=== PATIENT | male | born 1940 | race Caucasian/White ===

== ENCOUNTER 2016-07-01 12:21 | Emergency (ER) | payer OTHER ==
[~2016-07-01 12:21] MED LIST: ASPI81 PO; COUM5TAB PO; FISH1000 PO; GLYB1TAB51 PO; LATA.005%O OU; LEVO.025 PO; LISI-357 PO; PRED50TA PO; REST30CA PO; RIVA20 PO; ROSU20 PO; TAB-TAB PO; TAMS0.4C67 PO; TIMO0.5S6 OU
[2016-07-01 12:24] VITALS: BP 144/58; PULSE 58; RESP 24; TEMP 97.5
--- NOTE | 2016-07-01 12:51 | PD ---
HPI Chief Complaint: General Weakness Time Seen by Provider: 12:41 Travel History International Travel<30 days: No Contact w/Intl Traveler<30days: No Traveled to known affect area: No History of Present Illness HPI This patient complains of shortness of breath. He said shortness of breath for 2-3 months. He's had extensive workup to determine why he gets recurrent pleural effusions and he still does not know. He has history of myelodysplastic syndrome and has pancytopenia. 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 He still has no diagnosis. He is a smoker. Denies productive cough or fever or chest pain. He does not use home oxygen. Severity is moderate. No alleviating factors. He has had 4 thoracentesis so far PFSH Past Medical History Asthma: No Autoimmune Disease: No Blood Disorders: No Heart Rhythm Problems: No Cancer: Yes Cardiovascular Problems: Yes High Cholesterol: Yes Chemotherapy: Yes Chest Pain: No Congestive Heart Failure: No COPD: No Diabetes: Yes Patient Takes Glucophage: Yes Endocrine: No Glaucoma: Yes Genitourinary: Yes Headaches: Yes Hypertension: Yes Immune Disorder: No Implanted Vascular Access Dvce: Yes Musculoskeletal: No Neurologic: Yes Psychiatric: No Reproductive: No Respiratory: No Immunizations Current: Yes Myocardial Infarction: No Radiation Therapy: Yes (SEEDED) Sleep Apnea: No Past Surgical History AICD: No Arteriovenous Shunt: No Body Medical Devices: STENT CARDIAC Cardiac Surgery: Yes (LEFT CEA 11/2005; CARDIAC STENT 09/12) Genitourinary Surgery: Yes (PROSTATE CA 04/09) Insulin Pump: No Joint Replacement: No Oral Surgery: Yes (GUMS) Pacemaker: No Other Surgery: Yes Social History Alcohol Use: No Tobacco Use: Yes Substance Use: No Allergies-Medications (Allergen,Severity, Reaction): Coded Allergies: No Known Allergies (Verified , 07/01/16) Reported Meds & Prescriptions Reported Meds & Active Scripts Active Reported Amoxicillin-Clavulanate 875-125 mg Tab 875 Mg PO BID not for use in CrCl <30 mL/minute Levothyroxine (Levothyroxine Sodium) 25 Mcg Tab 25 Mcg PO EVERY OTHER DAY Timolol Opth Drops 0.5 % Soln 1 Drop EACH EYE BID Zolpidem (Zolpidem Tartrate) 5 Mg Tab 5 Mg PO HS PRN Flomax (Tamsulosin HCl) 0.4 Mg Cap 0.4 Mg PO HS Review of Systems General / Constitutional: No: Fever Eyes: No: Visual changes HENT: No: Headaches Cardiovascular: No: Chest Pain or Discomfort Respiratory: Positive: Shortness of Breath Gastrointestinal: No: Abdominal Pain Genitourinary: No: Dysuria Musculoskeletal: No: Pain Skin: No Rash Neurologic: No: Weakness Psychiatric: No: Depression Endocrine: No: Polydipsia Hematologic/Lymphatic: No: Easy Bruising Physical Exam Narrative GENERAL: Well-nourished, well-developed patient in no apparent distress. SKIN: Focused skin assessment reveals no rash and nodules. Skin is Warm and dry. HEAD: Atraumatic. Normocephalic. EYES: Pupils equal and round. No scleral icterus. No injection or drainage. ENT: No nasal bleeding or discharge. Mucous membranes pink and moist. NECK: Trachea midline. No JVD. CARDIOVASCULAR: Regular rate and rhythm. No murmur appreciated. RESPIRATORY: No accessory muscle use. Clear to auscultation. Breath sounds equal bilaterally. GASTROINTESTINAL: Abdomen soft, suggestive of ascites in the abdomen from minimal distention. Hepatic and splenic margins not palpable. MUSCULOSKELETAL: No obvious deformities. No clubbing. No cyanosis. No edema. NEUROLOGICAL: Awake and alert. No obvious cranial nerve deficits. Motor grossly within normal limits. Normal speech. PSYCHIATRIC: Appropriate mood and affect; insight and judgment normal. Data Data Last Documented VS Vital Signs Date Time Temp Pulse Resp B/P Pulse Ox O2 Delivery O2 Flow Rate FiO2 07/01/16 14:54 67 18 141/63 96 Nasal Cannula 3 07/01/16 12:24 97.5 Orders Chest, Single Ap (07/01/16 ) Complete Blood Count With Diff (07/01/16 12:47) Basic Metabolic Panel (Bmp) (07/01/16 12:47) Iv Access Insert/Monitor (07/01/16 12:47) Prothrombin Time / Inr (Pt) (07/01/16 12:48) Act Partial Throm Time (Ptt) (07/01/16 12:48) Labs Laboratory Tests Test 07/01/16 12:52 White Blood Count 5.0 TH/MM3 Red Blood Count 2.52 MIL/MM3 Hemoglobin 8.6 GM/DL Hematocrit 26.0 % Mean Corpuscular Volume 103.1 FL Mean Corpuscular Hemoglobin 33.9 PG Mean Corpuscular Hemoglobin 32.9 % Concent Red Cell Distribution Width 24.4 % Platelet Count 122 TH/MM3 Mean Platelet Volume 11.5 FL Neutrophils (%) (Auto) % Lymphocytes (%) (Auto) % Monocytes (%) (Auto) % Eosinophils (%) (Auto) % Basophils (%) (Auto) % Neutrophils # (Auto) TH/MM3 Lymphocytes # (Auto) TH/MM3 Monocytes # (Auto) TH/MM3 Eosinophils # (Auto) TH/MM3 Basophils # (Auto) TH/MM3 CBC Comment AUTO DIFF Differential Total Cells 100 Counted Neutrophils % (Manual) 47 % Band Neutrophils % 3 % Lymphocytes % 23 % Monocytes % 27 % Neutrophils # (Manual) 2.5 TH/MM3 Nucleated Red Blood Cells 39 /100 WBC Differential Comment FINAL DIFF MANUAL Toxic Granulation 1+ Dohle Bodies Platelet Estimate LOW Platelet Morphology Comment ENLARGED Acanthocytes OCC Prothrombin Time 13.2 SEC Prothromb Time International 1.2 RATIO Ratio Activated Partial 31.2 SEC Thromboplast Time Sodium Level 138 MEQ/L Potassium Level 4.5 MEQ/L Chloride Level 102 MEQ/L Carbon Dioxide Level 30.1 MEQ/L Anion Gap 6 MEQ/L Blood Urea Nitrogen 36 MG/DL Creatinine 1.34 MG/DL Estimat Glomerular Filtration 52 ML/MIN Rate Random Glucose 139 MG/DL Calcium Level 9.0 MG/DL MDM Medical Decision Making Medical Screen Exam Complete: Yes Emergency Medical Condition: Yes Medical Record Reviewed: Yes Differential Diagnosis Recurrent pleural effusion, lung cancer, CHF Narrative Course I have reviewed the patient's electronic medical record. IV placed CBC shows pancytopenia which is chronic for this patient Metabolic profile shows some renal insufficiency Coagulation studies are normal I reviewed his chest x-ray which does not show significant pleural effusions. There may be a trace of pleural fluid in the bases but nothing to consider removing. Has some atelectasis in the bases as well. Radiologist reading is been noted. He does not have any clinical findings of pneumonia. Room air saturations are 98% He does not look short of breath Stable for outpatient follow-up. Diagnosis Primary Impression: Shortness of breath Additional Impression: Pancytopenia Additional Instructions: The patient was advised to follow up with their physician and return if they worsen. Med/Other Pt SpecificInfo: Other Disposition: 01 DISCHARGE HOME Condition: Stable Gavin Wang MD July 01, 2016 12:51
[2016-07-01] MEDS ORDERED: ZOLP5TAB3 PO (13:03)
[2016-07-01] MEDS ORDERED: TIMO0.5S30 EACH EYE (13:03)
[2016-07-01] MEDS ORDERED: TAMS5CAP PO (13:03)
[2016-07-01] MEDS ORDERED: LEVO25TA4 PO (13:05)
[2016-07-01] MEDS ORDERED: AMOX875T2 PO (13:05)
[2016-07-01 13:14] LABS: MEAN CELL VOLUME 103.1 FL (80.0-100.0); MEAN CORPUSCULAR HEMOGLOBIN 33.9 PG (27.0-34.0); MEAN CORPUSCULAR HGB CONC 32.9 % (32.0-36.0); PLATELET COUNT 122 TH/MM3 (150-450); RED BLOOD COUNT 2.52 MIL/MM3 (4.50-5.90); RED CELL DISTRIBUTION WIDTH 24.4 % (11.6-17.2)
[2016-07-01 13:17] LABS: APTT (PATIENT) 31.2 SEC (24.3-30.1); INTERNATIONAL NORMALIZED RATIO 1.2 RATIO; PROTHROMBIN TIME - PATIENT 13.2 SEC (9.8-11.6)
--- NOTE | 2016-07-01 13:20 | RADRPT ---
EXAM DATE/TIME: 07/01/2016 12:54 [facility] COMPARISON: No previous studies available for comparison. INDICATIONS : Difficulty breathing for 1 week. MEDICAL HISTORY : Hypertension. Carcinoma, prostatic. Diabetes. SURGICAL HISTORY : Coronary artery stent. ENCOUNTER: Initial ACUITY: 1 week PAIN SCORE: 2/10 LOCATION: Bilateral chest FINDINGS: Portable AP view of the chest demonstrates a normal-sized cardiac silhouette in this patient post med darron sternotomy and CABG. Lungs are underinflated and there are mild bibasilar opacities. No pneumotho rax is visualized. Bones and soft tissues demonstrate no acute finding. CONCLUSION: Bibasilar opacities representing either atelectasis or consolidation. Possible small pleural effusion s are also present. Horacio Silver MD on July 01, 2016 at 13:17 Board Certified Radiologist. This report was verified electronically.
[2016-07-01 13:22] LABS: HEMO FLAGS AUTO DIFF
[2016-07-01 13:30] LABS: BICARBONATE 30.1 MEQ/L (21.0-32.0); POTASSIUM 4.5 MEQ/L (3.5-5.1)
[2016-07-01 13:59] LABS: BANDS 3 % (0-6); CORRECTED NUCLEATED RBC 39 /100 WBC (0-0); NEUTROPHIL # MANUAL DIFF 2.5 TH/MM3 (1.8-7.7); POLYS (SEG NEUTROPHILS) 47 % (16-70); WBC DIFF SAMPLE 100
[2016-07-01 14:06] LABS: PLATELET ESTIMATE SMEAR LOW (NORMAL); TOXIC GRANULATION 1+ (NORMAL)
[2016-07-01 14:07] LABS: PLATELET MORPHOLOGY ENLARGED (NORMAL)
[2016-07-01 14:11] LABS: ACANTHOCYTES OCC (NORMAL); SCAN/DIFF FINAL DIFF MANUAL
[2016-07-01 14:54] VITALS: BP 141/63; PULSE 67; RESP 18; O2SAT 96
== END 2016-07-01 16:53 | disposition home or self-care (01) ==
LOC: NEPC 12:21
DX: R06.02 Shortness of breath (principal); D61.818 Other pancytopenia
CPT/HCPCS: 71010; 80048; 85007; 85027; 85610; 85730; 99284

== ENCOUNTER 2016-07-06 11:51 | Inpatient (IN) | payer OTHER, MEDICARE ==
[~2016-07-06] VITALS: Ht 185.4 cm; Wt 85.9 kg
[2016-07-06] VITALS (12 sets, daily range): BP systolic 84–131; BP diastolic 50–85; PULSE 52–100; RESP 16–22; TEMP 97.2–99.8; O2SAT 83–99
[~2016-07-06 11:51] MED LIST changes: +AMOX875T2 PO; -ASPI81 PO; -COUM5TAB PO; -FISH1000 PO; -GLYB1TAB51 PO; -LATA.005%O OU; -LEVO.025 PO; +LEVO25TA4 PO; -LISI-357 PO; -PRED50TA PO; -REST30CA PO; -RIVA20 PO; -ROSU20 PO; -TAB-TAB PO; -TAMS0.4C67 PO; +TAMS5CAP PO; +TIMO0.5S30 EACH EYE; -TIMO0.5S6 OU; +ZOLP5TAB3 PO
--- NOTE | 2016-07-06 12:01 | PD ---
Physical Exam Date Seen by Provider: July 06, 2016 Time Seen by Provider: 11:57 Narrative 76 yo male that presents to the ED for evaluation of low O2 at home. Per patient he checked his O2 today and it was 82. He does not use oxygen at home. History of fluid in the lungs about 4 days ago and was drained. No fevers, chills or sweats. He does get chemo. Feels SOB. He was seen here on tuesday and put on oxygen but not discharged with it. Pain is 6/10 on the head from "being congested". His BP was found to be abnormal with one arm having higher BP than the other by EMS tech. Vitals sign stable. Patient awaiting bed placement. Data Data Last Documented VS Vital Signs Date Time Temp Pulse Resp B/P Pulse Ox O2 Delivery O2 Flow Rate FiO2 07/06/16 11:56 113/54 07/06/16 11:55 97.7 100 18 83 MDM Medical Record Reviewed: Yes Supervised Visit with BLAZE: No Wojciech Aguayo July 06, 2016 12:01
--- NOTE | 2016-07-06 12:24 | PD ---
HPI Chief Complaint: Respiratory Symptoms Time Seen by Provider: 12:24 Travel History International Travel<30 days: No Contact w/Intl Traveler<30days: No Traveled to known affect area: No History of Present Illness HPI Patient comes emergency Department complaining of low oxygen saturation at home this morning. He states he first woke up this feeling weak and a little short of breath and was O2 was 74%. Patient is rechecked and found to be 84%. Was sent to the emergency department by his oncologist Dr. Tilley. Patient history of pancytopenia, coronary artery disease, type 2 diabetes, failure to thrive, and bilateral pleural effusions. Patient states he just had a stress test done 6 weeks ago by his hall manager and was told that this was not his heart per patient. Patient scheduled to have a lung biopsy done next week had been delayed secondary to recent dental infection. Patient denies any chest pain, fevers, nausea, vomiting, abdominal pain, back pain, numbness or tingling anywhere, or loss or change in bowel or bladder. Patient states he's had this issue ongoing for 2 or 3 months and has not been able to find a cause. He states he feels better when he gets oxygen while in the hospital but does not have any at home. Patient's primary care is Dr. Sutherland and glove wrapper is Dr. Ramirez. Patient reports his last erythropoietin shot was a week ago. PFSH Past Medical History Asthma: No Autoimmune Disease: No Blood Disorders: No Heart Rhythm Problems: No Cancer: Yes Cardiovascular Problems: Yes (htn; bypass) High Cholesterol: Yes Chemotherapy: Yes (shots for dysmylo dysplasia) Chest Pain: No Congestive Heart Failure: No COPD: No Diabetes: Yes Endocrine: No Glaucoma: Yes Genitourinary: Yes Headaches: Yes Hypertension: Yes Immune Disorder: No Implanted Vascular Access Dvce: Yes Musculoskeletal: No Neurologic: Yes Psychiatric: No Reproductive: No Respiratory: Yes (copd) Immunizations Current: Yes Myocardial Infarction: No Radiation Therapy: Yes (SEEDED) Sleep Apnea: No Past Surgical History AICD: No Arteriovenous Shunt: No Body Medical Devices: STENT CARDIAC Cardiac Surgery: Yes (LEFT CEA 11/2005; CARDIAC STENT 09/12) Genitourinary Surgery: Yes (PROSTATE CA 04/09) Insulin Pump: No Joint Replacement: No Oral Surgery: Yes (GUMS) Pacemaker: No Other Surgery: Yes Social History Alcohol Use: No Tobacco Use: Yes Substance Use: No Allergies-Medications (Allergen,Severity, Reaction): Coded Allergies: No Known Allergies (Verified , 07/06/16) Reported Meds & Prescriptions Reported Meds & Active Scripts Active Reported Amoxicillin-Clavulanate 875-125 mg Tab 875 Mg PO BID not for use in CrCl <30 mL/minute Levothyroxine (Levothyroxine Sodium) 25 Mcg Tab 25 Mcg PO EVERY OTHER DAY Timolol Opth Drops 0.5 % Soln 1 Drop EACH EYE BID Zolpidem (Zolpidem Tartrate) 5 Mg Tab 5 Mg PO HS PRN Flomax (Tamsulosin HCl) 0.4 Mg Cap 0.4 Mg PO HS Review of Systems Except as stated in HPI: all other systems reviewed are Neg Physical Exam Narrative GENERAL: Well-developed, well nourished, in no acute distress, and non-ill appearing. SKIN: Focused skin assessment warm and dry. HEAD: Atraumatic. Normocephalic. EYES: Pupils equal and round. EOMI. No scleral icterus. No injection or drainage. ENT: No nasal bleeding or discharge. Mucous membranes pink and moist. NECK: Trachea midline. Supple. No nuclear rigidity. CARDIOVASCULAR: Irregular rate and rhythm. No murmur appreciated. RESPIRATORY: No accessory muscle use. No respiratory distress. Decreased breath sounds throughout. Patient speaking in full sentences without difficulty. GASTROINTESTINAL: Abdomen soft, non-tender, nondistended. Hepatic and splenic margins not palpable. No pulsatile mass. MUSCULOSKELETAL: No obvious deformities. No clubbing. No cyanosis. No edema. Full range of motion. NEUROLOGICAL: Awake and alert. No obvious cranial nerve deficits. Motor grossly within normal limits. Normal speech. PSYCHIATRIC: Appropriate mood and affect; insight and judgment normal. Data Data Last Documented VS Vital Signs Date Time Temp Pulse Resp B/P Pulse Ox O2 Delivery O2 Flow Rate FiO2 07/06/16 13:47 52 20 84/50 94 Nasal Cannula 3 07/06/16 11:55 97.7 Orders Complete Blood Count With Diff (07/06/16 12:19) Basic Metabolic Panel (Bmp) (07/06/16 12:19) Act Partial Throm Time (Ptt) (07/06/16 12:19) Prothrombin Time / Inr (Pt) (07/06/16 12:19) Iv Access Insert/Monitor (07/06/16 12:19) Electrocardiogram (07/06/16 12:19) Ecg Monitoring (07/06/16 12:19) Oximetry (07/06/16 12:19) Oxygen Administration (07/06/16 12:19) Sodium Chloride 0.9% Flush (Ns Flush) (07/06/16 12:30) Ckmb (Isoenzyme) Profile (07/06/16 13:21) Troponin I (07/06/16 13:21) Chest, Single Ap (07/06/16 ) Type And Screen (07/06/16 14:09) Red Blood Cells (Rbc) (07/06/16 14:09) Blood Product Administration .UPON TRANSFUSION (07/06/16 14:09) Sodium Chlor 0.9% 250 Ml Inj (Ns 250 Ml (07/06/16 14:15) Consult Medical Oncology (07/06/16 ) Consult Pulmonology (07/06/16 ) Admit Order (Ed Use Only) (07/06/16 14:43) Labs Laboratory Tests Test 07/06/16 12:29 White Blood Count 4.0 TH/MM3 Red Blood Count 2.30 MIL/MM3 Hemoglobin 7.7 GM/DL Hematocrit 23.7 % Mean Corpuscular Volume 103.1 FL Mean Corpuscular Hemoglobin 33.3 PG Mean Corpuscular Hemoglobin 32.4 % Concent Red Cell Distribution Width 24.2 % Platelet Count 125 TH/MM3 Mean Platelet Volume 11.4 FL Neutrophils (%) (Auto) % Lymphocytes (%) (Auto) % Monocytes (%) (Auto) % Eosinophils (%) (Auto) % Basophils (%) (Auto) % Neutrophils # (Auto) TH/MM3 Lymphocytes # (Auto) TH/MM3 Monocytes # (Auto) TH/MM3 Eosinophils # (Auto) TH/MM3 Basophils # (Auto) TH/MM3 CBC Comment AUTO DIFF Differential Total Cells 100 Counted Neutrophils % (Manual) 51 % Band Neutrophils % 3 % Lymphocytes % 23 % Monocytes % 21 % Eosinophils % 1 % Neutrophils # (Manual) 2.2 TH/MM3 Promyelocytes 1 % Nucleated Red Blood Cells 78 /100 WBC Differential Comment FINAL DIFF MANUAL Toxic Granulation 1+ Toxic Vacuolation PRESENT Platelet Estimate LOW Platelet Morphology Comment ENLARGED Ovalocytes 1+ Prothrombin Time 12.8 SEC Prothromb Time International 1.2 RATIO Ratio Activated Partial 28.2 SEC Thromboplast Time Sodium Level 141 MEQ/L Potassium Level 5.0 MEQ/L Chloride Level 103 MEQ/L Carbon Dioxide Level 32.0 MEQ/L Anion Gap 6 MEQ/L Blood Urea Nitrogen 28 MG/DL Creatinine 1.16 MG/DL Estimat Glomerular Filtration 61 ML/MIN Rate Random Glucose 199 MG/DL Calcium Level 9.2 MG/DL Total Creatine Kinase 20 U/L Troponin I 0.04 NG/ML MDM Medical Decision Making Medical Screen Exam Complete: Yes Emergency Medical Condition: Yes Interpretation(s) [address] Bustamante shows atrial fibrillation with a slow ventricular response rate of 57. With some questionable new T-wave inversions compared to previous EKG. No STEMI. Chest x-ray reviewed by myself and Dr. Bustamante shows: No significant change from previous chest x-ray. Left pleural effusions may have increase slightly. Radiologist to over read. Differential Diagnosis Hypoxemia, pneumonia, pleural effusion, anemia, electrolyte abnormality, mass, pneumothorax, other Narrative Course Patient was examined. Initial laboratory and radiological studies were obtained and reviewed. Patient was placed on O2, IV was established and patient placed on a cardiac monitor technician. Discussed all findings and plan of care with patient and his . Patient agreeable for admission. All questions were answered. Patient remained stable throughout ED course. Discussed patient with Dr. Bustamante, who is in agreement with plan of care and disposition. Physician Communication Physician Communication [id number] Tilley patient's oncologist recommends transfer using 2 units packed red blood cells, have patient admitted to medicine, consult himself and patient's glove wrapper. [id number] Ramirez, patient's glove wrapper, who is agreeable to consult patient. [id number] Carter who is agreeable to admit the patient. Diagnosis Primary Impression: Hypoxemia Additional Impressions: Shortness of breath Pancytopenia Anemia Qualified Code: D64.9 - Anemia, unspecified type Pleural effusion on left Admitting Information Admitting Physician Requests: Admit Condition: Stable Fabio Ca July 06, 2016 12:24
[2016-07-06] MEDS ORDERED: SODIUM CHLORIDE 0.9% FLUSH 10 ML FLUSH IVF PRN (12:30)
[2016-07-06 12:52] LABS: HEMATOCRIT 23.7 % (39.0-51.0); MEAN CELL VOLUME 103.1 FL (80.0-100.0); MEAN CORPUSCULAR HEMOGLOBIN 33.3 PG (27.0-34.0); MEAN CORPUSCULAR HGB CONC 32.4 % (32.0-36.0); PLATELET COUNT 125 TH/MM3 (150-450); RED CELL DISTRIBUTION WIDTH 24.2 % (11.6-17.2)
[2016-07-06 13:00] LABS: HEMO FLAGS AUTO DIFF
[2016-07-06 13:03] LABS: APTT (PATIENT) 28.2 SEC (24.3-30.1); INTERNATIONAL NORMALIZED RATIO 1.2 RATIO; PROTHROMBIN TIME - PATIENT 12.8 SEC (9.8-11.6)
[2016-07-06 13:35] LABS: BANDS 3 % (0-6); CORRECTED NUCLEATED RBC 78 /100 WBC (0-0); EOSINOPHILS 1 % (0-4); NEUTROPHIL # MANUAL DIFF 2.2 TH/MM3 (1.8-7.7); POLYS (SEG NEUTROPHILS) 51 % (16-70); PROMYELOCYTES 1 % (0-0); WBC DIFF SAMPLE 100
[2016-07-06 13:36] LABS: PLATELET ESTIMATE SMEAR LOW (NORMAL)
[2016-07-06 13:37] LABS: PLATELET MORPHOLOGY ENLARGED (NORMAL)
[2016-07-06 13:39] LABS: OVALOCYTES 1+ (NORMAL); TOXIC GRANULATION 1+ (NORMAL); TOXIC VACUOLATION PRESENT (NONE SEEN)
[2016-07-06 13:40] LABS: SCAN/DIFF FINAL DIFF MANUAL
[2016-07-06] MEDS ORDERED: SODIUM CHLOR 0.9% 250 ML INJ 250 ML IV ONE (14:15)
[2016-07-06] MEDS ORDERED: BISACODYL 10 MG SUPP RECTAL PRN (14:45)
[2016-07-06] MEDS ORDERED: ENOXAPARIN SODIUM 40 MG/0.4 ML SYRINGE SQ SCH (14:45)
[2016-07-06] MEDS ORDERED: SENNOSIDES 8.6 MG TAB PO PRN (14:45)
[2016-07-06] MEDS ORDERED: SODIUM CHLORIDE 0.9% FLUSH 10 ML FLUSH IV FLUSH PRN (14:45)
[2016-07-06] MEDS ORDERED: ONDANSETRON HCL 4 MG/2 ML VIAL IVP PRN (14:45)
[2016-07-06] MEDS ORDERED: LACTULOSE SYRUP 20 GM/30 ML CUP PO PRN (14:45)
[2016-07-06] MEDS ORDERED: NALOXONE HCL 0.4 MG/ML AMP IV PRN (14:45)
[2016-07-06] MEDS ORDERED: MAGNESIUM HYDROXIDE SUSP 30 ML CUP PO PRN (14:45)
--- NOTE | 2016-07-06 15:16 | RADRPT ---
EXAM DATE/TIME: 07/06/2016 14:15 [facility] COMPARISON: CHEST SINGLE AP, July 01, 2016, 12:54. INDICATIONS : Short of breath, swelling left side of the neck. MEDICAL HISTORY : anemia SURGICAL HISTORY : CABG. ENCOUNTER: Initial ACUITY: 1 day PAIN SCORE: 0/10 LOCATION: Bilateral chest FINDINGS: There continue to be bibasilar infiltrates which are about the same compared to the prior exam. There is a small left-sided pleural effusion. The heart size is stable. No evidence of pneumothorax. The b parviz structures are stable.CONCLUSION: 1. Stable bibasilar infiltrates 2. Small left-sided pleural effusion Thiago Link MD on July 06, 2016 at 15:14 Board Certified Radiologist. This report was verified electronically.
--- NOTE | 2016-07-06 16:09 | HHI.HP ---
[facility] Primary Care Physician Morales Sutherland MD Admission Diagnosis hypoxemia, anemia, myelodysplasia, left pleural effusion Diagnoses: Travel History International Travel<30 Days: No Contact w/Intl Traveler <30 Da: No Traveled to Known Affected Are: No History of Present Illness Mr. Yang is a 76-year-old male. He comes in to the hospital today with fatigue, dyspnea, and hypoxia. Saturations at home has been as low as 74%. His peak finding at home and also in the ER, on room air, was 84%. With oxygen he is up into the 90s again, regarding his saturation. She has a history of myelodysplastic syndrome with elements of pancytopenia. This is likely contributory. He has had a myelodysplastic syndrome for about 3 years. In the last 3 months he reports that he has been having problems with recurrent hypoxia. She also has a problem with a recurrent pleural effusion. His history of smoking, pleural effusion, his degree of anemia, and possible cellular malformation could be contributory to his hypoxia. Vascular constriction may also accentuate the degree of peripheral oxygen saturation deficit. Aside from fatigue and dyspnea the patient does not report any confusion, loss of consciousness, presyncope, headache, or visual deficit. Other medical conditions include coronary artery disease and diabetes mellitus type 2. 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 Tilley has ordered 2 units of packed red blood cells, which are pending. 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 Review of Systems Constitutional: DENIES: Fatigue, Fever, Chills Eyes: DENIES: Blurred vision, Diplopia Ears, nose, mouth, throat: DENIES: Hearing loss, Vertigo Respiratory: COMPLAINS OF: Shortness of breath, DENIES: Cough, Wheezing Cardiovascular: DENIES: Chest pain, Palpitations, Syncope Gastrointestinal: DENIES: Abdominal pain, Black stools, Bloody stools Musculoskeletal: DENIES: Joint pain, Muscle aches, Stiffness Integumentary: DENIES: Abnormal pigmentation Hematologic/lymphatic: DENIES: Bruising Immunologic/allergic: DENIES: Eczema Neurologic: DENIES: Abnormal gait, Headache Psychiatric: DENIES: Anxiety, Confusion Past Family Social History Past Medical History TIA Diabetes mellitus type 2 Prostate cancer Skin cancer Hypertension Glaucoma Benign prostatic hypertrophy Peripheral vascular disease Coronary artery disease Myelodysplastic syndrome Past Surgical History Left carotid endarterectomy 2 Right carotid endarterectomy Tonsillectomy CABG Seed implants for prostate cancer Left anterior descending coronary stenting Reported Medications Reported Meds & Active Scripts Active Reported Amoxicillin-Clavulanate 875-125 mg Tab 875 Mg PO BID not for use in CrCl <30 mL/minute Levothyroxine (Levothyroxine Sodium) 25 Mcg Tab 25 Mcg PO EVERY OTHER DAY Timolol Opth Drops 0.5 % Soln 1 Drop EACH EYE BID Zolpidem (Zolpidem Tartrate) 5 Mg Tab 5 Mg PO HS PRN Flomax (Tamsulosin HCl) 0.4 Mg Cap 0.4 Mg PO HS Allergies: Coded Allergies: No Known Allergies (Verified , 07/06/16) Family History Peripheral vascular disease in mother Social History Patient smokes 2-3 cigarettes per day Occasional alcohol use No drug abuse Patient lives with his Physical Exam Vital Signs Vital Signs Date Time Temp Pulse Resp B/P Pulse Ox O2 Delivery O2 Flow Rate FiO2 07/06/16 13:47 52 20 84/50 94 Nasal Cannula 3 07/06/16 13:31 52 22 92/71 96 Nasal Cannula 3 07/06/16 12:24 94 Nasal Cannula 2 07/06/16 12:24 92 Nasal Cannula 2 07/06/16 12:21 64 22 Nasal Cannula 2 07/06/16 11:56 113/54 07/06/16 11:55 97.7 100 18 88/60 83 Physical Exam GENERAL: NAD, A&Ox3 SKIN: Warm and dry. HEAD: Normocephalic. EYES: No scleral icterus. No injection or drainage. NECK: Supple, trachea midline. No JVD or lymphadenopathy. CARDIOVASCULAR: Regular rate and rhythm without murmurs, gallops, or rubs. RESPIRATORY: Breath sounds equal bilaterally. No accessory muscle use. GASTROINTESTINAL: Abdomen soft, non-tender, nondistended. MUSCULOSKELETAL: No cyanosis, or edema. Laboratory Laboratory Tests Test 07/06/16 07/06/16 12:29 14:23 White Blood Count 4.0 Red Blood Count 2.30 Hemoglobin 7.7 Hematocrit 23.7 Mean Corpuscular Volume 103.1 Mean Corpuscular Hemoglobin 33.3 Mean Corpuscular Hemoglobin 32.4 Concent Red Cell Distribution Width 24.2 Platelet Count 125 Mean Platelet Volume 11.4 Neutrophils (%) (Auto) Lymphocytes (%) (Auto) Monocytes (%) (Auto) Eosinophils (%) (Auto) Basophils (%) (Auto) Neutrophils # (Auto) Lymphocytes # (Auto) Monocytes # (Auto) Eosinophils # (Auto) Basophils # (Auto) CBC Comment AUTO DIFF Differential Total Cells 100 Counted Neutrophils % (Manual) 51 Band Neutrophils % 3 Lymphocytes % 23 Monocytes % 21 Eosinophils % 1 Neutrophils # (Manual) 2.2 Promyelocytes 1 Nucleated Red Blood Cells 78 Differential Comment FINAL DIFF MANUAL Toxic Granulation 1+ Toxic Vacuolation PRESENT Platelet Estimate LOW Platelet Morphology Comment ENLARGED Ovalocytes 1+ Prothrombin Time 12.8 Prothromb Time International 1.2 Ratio Activated Partial 28.2 Thromboplast Time Sodium Level 141 Potassium Level 5.0 Chloride Level 103 Carbon Dioxide Level 32.0 Anion Gap 6 Blood Urea Nitrogen 28 Creatinine 1.16 Estimat Glomerular Filtration 61 Rate Random Glucose 199 Calcium Level 9.2 Total Creatine Kinase 20 Troponin I 0.04 Blood Type O POSITIVE Antibody Screen NEGATIVE Crossmatch Leukocyte-Reduced Red Blood Cells Blood Bank Comment Result Diagram: 07/06/16 1229 07/06/16 1229 Assessment and Plan Problem List: (1) Hypoxemia ICD Code: R09.02 Status: Acute (2) Pleural effusion on left ICD Code: J90 Status: Acute (3) Anemia ICD Code: D64.9 Status: Acute (4) Pancytopenia ICD Code: D61.818 Status: Acute (5) Shortness of breath ICD Code: R06.02 Status: Acute Assessment and Plan Assessment and plan 76-year-old male admitted with myelodysplastic syndrome, anemia, and acute hypoxia. Acute hypoxia May be multifactorial Possibility for underlying lung disease given history of smoking Myelodysplastic syndrome may be contributory Pleural effusion is not large at this time but could also be contributory Follow him pulse ox Supplemental oxygen Pulmonology consult Myelodysplastic syndrome Anemia Pancytopenia Consult hematology/oncology Transfuse 2 units of packed red blood cells on 07/06/16 Diabetes mellitus or 2 Insulin sliding scale Follow blood sugars Diabetic diet Benign prostatic hypertrophy History of prostate cancer Continue Flomax Glaucoma Continue baseline eye drops TIA Hx Follow clinically Hypertension Follow blood pressure Treatments as needed at this point Peripheral vascular disease Coronary artery disease Follow symptoms clinically Follow on telemetry No chest pain No claudication Nicotine use Degree of nicotine use his light the patient is counseled to quit No nicotine supplementation needed Physician Certification 2 Midnight Certification Type: Admission for Inpatient Services Order for Inpatient Services The services are ordered in accordance with Medicare regulations or non- Medicare payer requirements, as applicable. In the case of services not specified as inpatient-only, they are appropriately provided as inpatient services in accordance with the 2-midnight benchmark. Estimated LOS (days): 2 days is the estimated time the patient will need to remain in the hospital, assuming treatment plan goals are met and no additional complications. Post-Hospital Plan: Home Problem Qualifiers (1) Anemia: Qualified Code: D64.9 - Anemia, unspecified type Nacho Carter MD July 06, 2016 16:09
[2016-07-06] MEDS ORDERED: LATA0.002 EACH EYE (16:12)
[2016-07-06] MEDS ORDERED: PIPERACIL-TAZO 3.375 GM PREMIX 50 ML IV SCH (20:00)
--- NOTE | 2016-07-06 20:44 | MB ---
cc: TATIANA OLIVEROS DATE OF CONSULTATION 07/06/16 REASON FOR CONSULTATION Recurrent pleural effusion. HISTORY OF PRESENT ILLNESS Mr. Yang is a 76-year-old male with history of pancytopenia myelodysplastic syndrome. He is requiring recurrent blood transfusion. The patient has pleural effusion. He has multiple thoracenteses done; etiology of the effusion is not clear. He came to the hospital with worsening of his shortness of breath and his noticed that his oxygen saturation at the house was 82%. Because of worsening of the symptoms, he came to the hospital. He had a workup and his chest x-ray shows small left pleural effusion. His CBC showed WBC count 4.0, hemoglobin 7.7, hematocrit 27.3, MCV 103, platelet count 125. Sodium 141, potassium 5.0. Chloride was 102, CO2 32, BUN 28, creatinine 1.16. PAST MEDICAL HISTORY 1. History of progressive pancytopenia 2. Recurrent pleural effusion 3. Coronary artery disease status post coronary artery bypass graft 4. Carotid endarterectomy 5. Hypothyroidism 6. Kidney stones 7. Peripheral arterial disease, 8. Prostate cancer MEDICATIONS Currently 1. Levothyroxine 25 mcg a day 2. Augmentin 875 mg twice a day. ALLERGIES NO KNOWN DRUG ALLERGIES. SOCIAL HISTORY He is , has history of smoking in the past. FAMILY HISTORY Noncontributory REVIEW OF SYSTEMS He has shortness of breath, no headache or dizziness. No nausea or vomiting, no DVT or pulmonary embolus. PHYSICAL EXAMINATION GENERAL: Elderly male mildly short of breath. VITAL SIGNS: Blood pressure 131/85, heart rate 79, respirations 16, temperature 97.2 HEENT: Pupils are equal and react to light. He has swelling on the left submandibular area. It is large, nontender. He did have a tooth extraction on the right side. CHEST: Equal bilaterally, slight diseased breath sounds at the left lung base. CARDIOVASCULAR: S1, S2 normal. ABDOMEN: Benign. EXTREMITIES: No edema. IMPRESSION 1. Recurrent pleural effusion, etiology not known 2. Dyspnea and hypoxia 3. Left submandibular area swelling, possible infection. He had a tooth extraction on the right side. 5. Anemia 6. History of pulmonary embolus 7. History of carotid endarterectomy. PLAN Continue with antibiotic. Supplement his oxygen. Will evaluate for home oxygen therapy. The patient was supposed to see Dr. Sana Lord as an outpatient. I will consult Dr. Lord to evaluate for possible VATS to determine the etiology of the pleural effusion and possible sclerosis. Further treatment will depend on the course in the hospital. Thank you for this consultation. MD LATASHA Flores/ /7:59 PM /8:31 PM MTDChristine
[2016-07-06] MEDS: SODIUM CHLORIDE 0.9% FLUSH 10 ML FLUSH IV FLUSH SCH (21:00)
--- NOTE | 2016-07-06 22:20 | MB ---
cc: NU DANIELS DATE OF CONSULTATION 07/06/16 REASON FOR CONSULTATION 1. Myelodysplastic syndrome with anemia 2. Shortness of breath 3. Swelling of left submandibular gland. PATIENT PROFILE The patient is a 76-year-old male. He is . He has four children. He lives with his , his 's father who is in his 90s, and a son who was injured in an automobile accident and has problems with his back and neck. Only during the past year has he decreased his tobacco use. He has smoked approximately a pack of cigarettes a day for 50 years. He was born in [place], [place]. 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 There is no history of excessive alcohol intake. HISTORY OF PRESENT ILLNESS The patient is a 76-year-old male who has poor health. He has had bilateral carotid endarterectomies, coronary artery bypass surgery grafting, a coronary stent. He developed a significant anemia with recurrent unexplained pleural effusions. He has undergone multiple thoracenteses which have been nondiagnostic. In October 2015, the patient had a hemoglobin of 12.9, white count 5000 and platelets of 157,000. He developed progressive pancytopenia. On 04/22/2016 his hemoglobin was 8.9, white count 3300, platelets 142,000. 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 The red cell precursors were decreased and cytogenetic studies showed a normal 46 XY karyotype. The patient was referred to the [facility] and saw Dr. Edouard for a second opinion. The decision was made to treat with Vidaza. He received three of five planned days of Vidaza last week. He had problems with hypoxia and weakness and did not receive the two additional days and went to the emergency room for shortness of breath and then was discharged home. He contacted our office today because of shortness of breath and had episodic hypoxia with O2 sats in the low 80s. he was referred to the emergency room at [place] and has been admitted to the hospital where I am now seeing him. He has had no temperature or sputum production. A chest x-ray on 07/06/16 shows a small left-sided pleural effusion and stable bibasilar infiltrates. Hemoglobin is 7.7, white count 4000, platelets 125,000. He has 51% neutrophils, 3% bands, 23% lymphocytes, 21% monocytes. He has 78 nucleated red blood cells. Lytes, BUN and creatinine are unremarkable. A chest x-ray shows stable bibasilar infiltrates and a small left-sided pleural effusion. During the previous week, the patient went to the dentist for a problem with a tooth on the right side. His dentist wanted to extract the tooth but did not feel he was stable enough to do this and had planned on having a surgeon do this at a later date. He did give him Augmentin which he is currently taking. At the time the patient saw the dentist he had mild swelling under the right submandibular area which improved but in the past 48 hours has developed rapid swelling underneath the left submandibular area which is tender. PAST SURGICAL HISTORY 1. Multiple thoracenteses bilaterally 2. Tonsillectomy. 3. Endovascular aneurysm repair in 2016 for an infrarenal abdominal aortic aneurysm by Dr. Cintron. 4. Coronary artery bypass surgery 2009 5. Left carotid endarterectomy times 2 6. Right carotid endarterectomy 7. Radioactive seed implantation in the prostate in 2002 for prostate cancer. PAST MEDICAL HISTORY 1. Diagnosis of myelodysplasia as described above 2. Type 2 diabetes 3. Gout 4. Hypothyroidism 5. Renal stones 6. Peripheral vascular disease 7. Prostate cancer dating back to 2002. ALLERGIES No known allergies. FAMILY HISTORY Mr. Yang's mother at 77. His father at age 83 of prostate cancer. The patient has two brothers who are . MEDICATIONS At home. 1. Augmentin started one week ago by his dentist 2. Eye drops 3. Levothyroxine 25 mcg every other day 14 4. Timolol eye drops 5. Ambiens REVIEW OF SYSTEMS No change in vision or hearing. No chest pain. He has shortness of breath with minimal exertion. No abdominal or pelvic pain. No melena or hematochezia, no dysuria or frequency. No bone pain other than mild arthritis. No focal weakness. PHYSICAL EXAMINATION GENERAL: A frail gentleman. He has a nasal cannula. His O2 sats have ranged from 99-85% in the past several hours. HEENT: Head is normocephalic. Sclerae and conjunctivae are normal. Oropharynx unremarkable. There is a 4 or 5 cm left submandibular mass, tender. There is a 2 cm right submandibular mass. There is no other adenopathy. HEART: Regular rhythm. LUNGS: Slightly decreased sounds left base. ABDOMEN: Mildly distended. No hepatosplenomegaly. EXTREMITIES: Trace edema. MUSCULOSKELETAL: Muscle wasting. NEUROLOGIC: No focal weakness although generalized weakness. PSYCHIATRIC: Cognition, affect are normal ASSESSMENT AND PLAN 1. The patient has a myelodysplasia and has just started treatment with Vidaza. His current hemoglobin is 7.7, white count 4000, platelets 125,000. He is frail and does not tolerate this hemoglobin. He will receive two units of packed cells. Will resume Vidaza as an outpatient. Repeat cbc plat in am 2. Recurrent pleural effusions and shortness of breath with a longstanding history of smoking. Dr. Ramirez has been consulted. I have spoken with Dr. 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 The patient will also be seen by thoracic surgery as there is a possibility that he may the require pleuroscopy due to the recurrent pleural effusions, although at the present time the pleural effusion is quite small. 3. The patient has extensive swelling of the left submandibular area. This occurred while on Augmentin. ENT consult. 4. History of severe vascular disease. He needs to stop smoking completely. I am not sure why he is not taking an aspirin and we will explore this with him given his history of bypass surgery and significant peripheral vascular disease. MD YURY Hutson/ /9:00 PM /9:50 PM [facility] HOSPITALChristine
[2016-07-06] MEDS: TIMOLOL MALEATE 0.5% OPHT SOLN 5 ML BTL EACH EYE SCH (23:05)
[2016-07-06] MEDS: LATANOPROST 0.005% OPHT SOLN 2.5 ML BTL EACH EYE SCH (23:05)
[2016-07-06] MEDS: DOCUSATE SODIUM 50 MG/SENNA 8.6 MG TAB PO SCH (23:05)
[2016-07-06] MEDS: AMOXICILLIN/CLAVULANATE K 875 MG TAB PO SCH (23:05)
[2016-07-07] VITALS (12 sets, daily range): BP systolic 102–153; BP diastolic 52–83; PULSE 46–84; RESP 12–20; TEMP 97.4–98.4; O2SAT 92–95
[2016-07-07] MEDS: ZOLPIDEM TARTRATE 5 MG TAB PO PRN ×2 (00:21→22:01)
[2016-07-07 07:29] LABS: AUTOMATED NEUTROPHIL # 2.3 TH/MM3 (1.8-7.7); BASOPHIL # 0.1 TH/MM3 (0-0.2); EOSINOPHIL % 0.2 % (0.0-4.0); HEMATOCRIT 28.2 % (39.0-51.0); LYMPH % 14.5 % (9.0-44.0); LYMPHOCYTE # 0.8 TH/MM3 (1.0-4.8); MEAN CELL VOLUME 99.7 FL (80.0-100.0); MEAN CORPUSCULAR HGB CONC 32.1 % (32.0-36.0); MONO % 40.4 % (0.0-8.0); NEUT % 43.9 % (16.0-70.0); PLATELET COUNT 92 TH/MM3 (150-450); RED BLOOD COUNT 2.83 MIL/MM3 (4.50-5.90); RED CELL DISTRIBUTION WIDTH 22.7 % (11.6-17.2); WHITE BLOOD COUNT 5.2 TH/MM3 (4.0-11.0)
[2016-07-07 07:45] LABS: HEMO FLAGS AUTO DIFF
[2016-07-07 08:07] LABS: BICARBONATE 32.1 MEQ/L (21.0-32.0)
[2016-07-07 08:24] LABS: CORRECTED NUCLEATED RBC 34 /100 WBC (0-0); NEUTROPHIL # MANUAL DIFF 2.9 TH/MM3 (1.8-7.7); POLYS (SEG NEUTROPHILS) 56 % (16-70); WBC DIFF SAMPLE 100
[2016-07-07 08:25] LABS: PLATELET ESTIMATE SMEAR LOW (NORMAL); PLATELET MORPHOLOGY ENLARGED (NORMAL); SCAN/DIFF FINAL DIFF MANUAL
[2016-07-07] MEDS: SODIUM CHLORIDE 0.9% FLUSH 10 ML FLUSH IV FLUSH SCH ×2 (09:00→21:00)
[2016-07-07] MEDS: DOCUSATE SODIUM 50 MG/SENNA 8.6 MG TAB PO SCH ×3 (09:00→21:00)
[2016-07-07] MEDS: TIMOLOL MALEATE 0.5% OPHT SOLN 5 ML BTL EACH EYE SCH ×2 (09:00→22:02)
[2016-07-07] MEDS: AMOXICILLIN/CLAVULANATE K 875 MG TAB PO SCH ×2 (09:17→22:01)
--- NOTE | 2016-07-07 09:38 | EKG ---
Date Performed: 07/06/2016 Time Performed: 12:52:38 PTAGE: 76 years EKG: ATRIAL FIBRILLATION WITH SLOW VENTRICULAR RESPONSE RIGHT BUNDLE BRANCH BLOCK LEFT POSTERIOR FASCICULAR BLOCK MODERATE T-WAVE ABNORMALITY, CONSIDER LATERAL ISCHEMIA MODERATE T-WAVE ABNORMALITY, CONSIDER INFERIOR ISCHEMIA ABNORMAL ECG PREVIOUS TRACING : 10/16/2015 07.38 DOCTOR: Álvaro Mendoza Interpretating Date/Time 07/07/2016 09:36:54
--- NOTE | 2016-07-07 09:39 | PD.ONC.PN ---
Subjective Subjective Remarks Afebrile overnight. Feels better after blood transfusion. Just ordered breakfast but has not eaten yet this morning. Objective Data Date Time Temp Pulse Resp B/P Pulse Ox O2 Delivery O2 Flow Rate FiO2 07/07/16 08:05 98.4 84 19 134/77 93 07/07/16 04:36 Nasal Cannula 3.00 07/07/16 04:36 98.1 74 20 153/65 95 07/07/16 00:09 Nasal Cannula 3.00 07/07/16 00:09 97.6 74 12 102/58 95 07/06/16 21:28 99.0 80 16 118/58 93 07/06/16 21:13 99.4 91 22 101/53 91 07/06/16 21:13 Nasal Cannula 3.00 07/06/16 20:40 Nasal Cannula 3.00 07/06/16 20:16 75 07/06/16 20:14 Room Air 07/06/16 20:14 99.8 70 18 106/61 85 07/06/16 17:50 98.5 72 20 117/56 92 07/06/16 17:35 99.1 79 20 131/85 93 07/06/16 15:59 97.2 79 16 131/85 99 07/06/16 13:47 52 20 84/50 94 Nasal Cannula 3 07/06/16 13:31 52 22 92/71 96 Nasal Cannula 3 07/06/16 12:24 94 Nasal Cannula 2 07/06/16 12:24 92 Nasal Cannula 2 07/06/16 12:21 64 22 Nasal Cannula 2 07/06/16 11:56 113/54 07/06/16 11:55 97.7 100 18 88/60 83 Result Diagram: 07/07/16 0603 07/07/16 0603 Laboratory Results Laboratory Tests Test 07/06/16 07/06/16 07/07/16 12:29 14:23 06:03 White Blood Count 4.0 TH/MM3 5.2 TH/MM3 Red Blood Count 2.30 MIL/MM3 2.83 MIL/MM3 Hemoglobin 7.7 GM/DL 9.1 GM/DL Hematocrit 23.7 % 28.2 % Mean Corpuscular Volume 103.1 FL 99.7 FL Mean Corpuscular Hemoglobin 33.3 PG 32.0 PG Mean Corpuscular Hemoglobin 32.4 % 32.1 % Concent Red Cell Distribution Width 24.2 % 22.7 % Platelet Count 125 TH/MM3 92 TH/MM3 Mean Platelet Volume 11.4 FL 11.7 FL Neutrophils (%) (Auto) % 43.9 % Lymphocytes (%) (Auto) % 14.5 % Monocytes (%) (Auto) % 40.4 % Eosinophils (%) (Auto) % 0.2 % Basophils (%) (Auto) % 1.0 % Neutrophils # (Auto) TH/MM3 2.3 TH/MM3 Lymphocytes # (Auto) TH/MM3 0.8 TH/MM3 Monocytes # (Auto) TH/MM3 2.1 TH/MM3 Eosinophils # (Auto) TH/MM3 0.0 TH/MM3 Basophils # (Auto) TH/MM3 0.1 TH/MM3 CBC Comment AUTO DIFF AUTO DIFF Differential Total Cells 100 100 Counted Neutrophils % (Manual) 51 % 56 % Band Neutrophils % 3 % Lymphocytes % 23 % 19 % Monocytes % 21 % 25 % Eosinophils % 1 % Neutrophils # (Manual) 2.2 TH/MM3 2.9 TH/MM3 Promyelocytes 1 % Nucleated Red Blood Cells 78 /100 WBC 34 /100 WBC Differential Comment FINAL DIFF FINAL DIFF MANUAL MANUAL Toxic Granulation 1+ Toxic Vacuolation PRESENT Platelet Estimate LOW LOW Platelet Morphology Comment ENLARGED ENLARGED Ovalocytes 1+ Prothrombin Time 12.8 SEC Prothromb Time International 1.2 RATIO Ratio Activated Partial 28.2 SEC Thromboplast Time Sodium Level 141 MEQ/L 140 MEQ/L Potassium Level 5.0 MEQ/L 5.0 MEQ/L Chloride Level 103 MEQ/L 103 MEQ/L Carbon Dioxide Level 32.0 MEQ/L 32.1 MEQ/L Anion Gap 6 MEQ/L 5 MEQ/L Blood Urea Nitrogen 28 MG/DL 27 MG/DL Creatinine 1.16 MG/DL 1.11 MG/DL Estimat Glomerular Filtration 61 ML/MIN 64 ML/MIN Rate Random Glucose 199 MG/DL 142 MG/DL Calcium Level 9.2 MG/DL 9.2 MG/DL Total Creatine Kinase 20 U/L Troponin I 0.04 NG/ML Blood Type O POSITIVE Antibody Screen NEGATIVE Crossmatch Leukocyte-Reduced Red Blood Cells Blood Bank Comment Administered Medications Medications (Trade) Dose Ordered Sig/Sadie Route PRN Reason Start Time Stop Time Status Last Admin Dose Admin Sodium Chloride (NS Flush) 2 ml BID IV FLUSH 07/06/16 21:00 07/07/16 09:00 Senna/Docusate Sodium (Kelli-Colace) 1 tab BID PO 07/06/16 21:00 07/06/16 23:05 Amoxicillin/ Clavulanate Potassium (Augmentin) 875 mg BID PO 07/06/16 21:00 07/07/16 09:17 Latanoprost (Xalatan 0.005% Opth Soln) 1 drop HS EACH EYE 07/06/16 21:00 07/06/16 23:05 Timolol Maleate (Timoptic 0.5% Opth Soln) 1 drop BID EACH EYE 07/06/16 21:00 07/07/16 09:00 Zolpidem Tartrate (Ambien) 5 mg HS PRN PO INSOMNIA 07/06/16 19:15 07/07/16 00:21 Objective Remarks GENERAL: Elderly male, sitting up in bed in nad SKIN: Warm and dry. HEAD: Normocephalic. EYES: No injection or drainage. NECK: Supple, trachea midline. left submandibular mass, about the size of a golf ball CARDIOVASCULAR: Regular rate and rhythm RESPIRATORY: diminished at right base. anterior velasquez clear GASTROINTESTINAL: Abdomen soft, non-tender, nondistended. EXTREMITIES: No cyanosis NEUROLOGICAL: No obvious focal deficit. Awake, alert, and oriented x3. Assessment/Plan Assessment 76y/o male with MDS, admitted with pleural effusion and dyspnea. Plan 1. consult invasive radiology for port placement today--I asked the nurse to make him NPO if they plan to do port placement today and let him eat if they plan to do it tomorrow 2. mandibular mass: this is about 1/3 smaller. suspect a benign process given the acute nature of its appearance and it is now shrinking in size. will await ENT consult. 3. plan to resume Vidaza outpatient 4. patient strongly advised to resume daily aspirin upon discharge. he has extensive vascular history and is at risk for vascular event. Attending Statement The exam, history, and the medical decision-making described in the above note were completed with the assistance of the mid-level provider. I reviewed and agree with the findings presented. I attest that I had a [id number] encounter with the patient on the same day, and personally performed and documented my assessment and findings in the medical record. He is a little stronger but still very frail. Left submandibular mass smaller suggesting that it may have been a ?blocked duct. ENT consult pending. Will hold on further transfusions today and resume vidaza next week. He struggles more with pulmonary issues then with his myelodysplasia which can be managed for a while with transfusions if current plan not successful. Lauryn Bruce July 07, 2016 09:39 Cm Tilley MD July 07, 2016 14:36
[2016-07-07] MEDS ORDERED: VANCOMYCIN INJ 1,000 MG in SODIUM CHLOR 0.9% 250 ML INJ 250 ML IV SCH (10:30)
[2016-07-07] MEDS ORDERED: MIDAZOLAM HCL 5 MG/5 ML VIAL ONE (11:54)
[2016-07-07] MEDS ORDERED: fentaNYL CITRATE 250 MCG/5 ML AMP ONE (11:54)
[2016-07-07] MEDS ORDERED: LIDOCAINE 1%/EPINEPHrine 1:100,000 SOLN 30 ML VIAL ONE (12:16)
--- NOTE | 2016-07-07 12:49 | PD.RAD ---
Post Procedure Progress Note Pre Procedure Diagnosis: (1) Prostate CA Post Procedure Diagnosis: (1) Prostate CA Procedure Date: July 07, 2016 Supervising Radiologist: Marco Brothers Proceduralist/Assist: Jessica Rosenbaum, RT(R), Bishop Bobby, RT(R) Estimated blood loss: 0 ml Anesthesia: Conscious Sedation Plan of Activity Patient to Unit: Nursing Unit Patient Condition: Good Additional Comments: Placed 8Fr Vascath See PACS Report for procedural detail/treatment Marco Brothers MD July 07, 2016 12:49
[2016-07-07] MEDS ORDERED: SODIUM CHLORIDE 0.9% FLUSH 10 ML FLUSH IVF PRN (13:00)
--- NOTE | 2016-07-07 13:34 | RADRPT ---
EXAM DATE/TIME: 07/07/2016 12:16 [place] COMPARISON: No previous studies available for comparison. INDICATIONS : Patient presents with prostate cancer in need of port placement for chemotherapy treatment. MEDICAL HISTORY : HTN Prostate CA DM AFIB SURGICAL HISTORY : Oral sx Cardiac stent 09/12 Bypass L CEA 11/2005 Tiple bypass ENCOUNTER: Initial ACUITY: 1 week PAIN SCORE: 0/10 LOCATION: n/a FLUORO TIME: 0.2 minutes IMAGE SERIES: 0 SEDATION TIME: 30 minutes ACCESS: Right internal jugular vein SEDATION: 1.) 0.5 mg midazolam (Versed) IV 2.) 25 mcg fentanyl (Sublimaze) IV Prophylactic antibiotics were administered with appropriate pre-procedure timing. Vancomycin within 2 hours of procedure, Ancef (or alternative) within 1 hour of procedure. DEVICE: 1. 8 Czech single lumen Bard Power Port PROCEDURE : 1. Continuous pulse oximetry and EKG monitoring. 2. Intravenous conscious sedation. 3. Ultrasound guidance for venous access. 4. Fluoroscopic guided implantable central venous port placement. The patient was placed supine. The neck was prepped in sterile fashion. Full sterile technique was u sed, including cap, mask, sterile gloves and gown, and a large sterile sheet. Hand hygiene and 2% ch lorhexidine Betadine was utilized per protocol for cutaneous antisepsis with appropriate dry time for site. The skin and subcutaneous tissues were infiltrated with local anesthetic solution. Under direct ultrasound guidance, central venous access was accomplished in the targeted vessel. The ultrasound images depicting access guidance were stored and saved to PACS for permanent record. A s ubcutaneous pocket was created using blunt dissection. The port was introduced to the pocket. The c atheter tubing was fed through a subcutaneous tunnel to the venotomy site. The catheter tubing was c ut to a suitable length and then was introduced through a valved Peel-Away sheath and positioned with catheter tubing tip at the cavo-atrial junction level. The pocket incision was closed with subcutic ular Vicryl suture. Steri-Strips were applied. The port was flushed and locked with heparin solutio n per protocol. Sterile dressing was applied to the site. The patient tolerated the procedure well. Conscious sedation was performed with the prescribed dosages and duration as above in the presence of an independent trained radiology nurse to assist in the monitoring of the patient. EKG and oximetry remained stable throughout the procedure. The patient tolerated the procedure well and there were no complications. The patient was sent to post anesthesia recovery in stable condition. CONCLUSION: Uncomplicated ultrasound and fluoroscopic guided implanted central venous port catheter placement as described in detail above. An 8 Czech Power port was placed. Marco Brothers MD on July 07, 2016 at 13:32 Board Certified Radiologist. This report was verified electronically.
--- NOTE | 2016-07-07 15:26 | MB ---
cc: KOKI MARKHAM MD DATE OF CONSULTATION: 07/07/2016 DATE OF : 1940 HISTORY OF PRESENT ILLNESS A 76-year-old patient of Dr. Tilley and Dr. Morales Sutherland, who presented to the emergency room because of shortness of breath and some hypoxia with O2 sats in the 80s. He had no recent temperature or sputum production. Chest x-ray showed a small left pleural effusion, stable bibasilar infiltrates. His hemoglobin was 7.7. He was admitted and has since received two units of packed RBCs. He recently saw his dentist about a week ago for some dental problems but his dentist did not feel stable enough to do this and planned on having a oral surgeon due to the extraction at a later date, placed him on some Augmentin but then developed some pain on his left side of his mandible which was tender. He has a history of myelodysplastic syndrome with anemia and is followed extensively by Dr. Tilley. His last hemoglobin apparently was 12.9. He has also been seen at the [facility] for a second opinion and was treated with Vidaza and sent home. We were consulted because of recurrent left pleural effusion. PAST MEDICAL HISTORY 1. Recurrent pleural effusions with multiple thoracenteses bilaterally. 2. History of myelodysplasia. 3. Type 2 diabetes. 4. Gout. 5. Hypothyroidism. 6. Renal stones. 7. Peripheral vascular disease. 8. Prostate cancer in 2002. PAST SURGICAL HISTORY 1. Multiple thoracenteses bilaterally. 2. Tonsillectomy. 3. Endovascular aneurysm repair [address] Cintron. 4. Coronary artery bypass graft [address] Garcia. 5. Left carotid endarterectomy x2. 6. Right carotid endarterectomy. 7. Prostate radioactive seed implant 2002. ALLERGIES No known allergies. MEDICATIONS Home meds include: 1. Augmentin recently. 2. Eye drops. 3. Levothyroxine. 4. Timolol eye drops. 5. Ambien. FAMILY HISTORY Mother age 77. Father age 83 of prostate cancer. SOCIAL HISTORY , four children, lives with his . He has been smoking for approximately 50 years. He has decreased his tobacco intake. No history of excessive alcohol. REVIEW OF SYSTEMS GENERAL: In general no night sweats, fever, heat or cold intolerance. SKIN: No psoriasis, itching or hives. HEENT: No blurred vision or hearing loss. RESPIRATORY: Positive for shortness of breath, occasional cough. CARDIOVASCULAR: No chest pain. No paroxysmal nocturnal dyspnea. No orthopnea. GASTROINTESTINAL: No diarrhea or vomiting. GENITOURINARY: No burning, frequency, urgency. 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 ENDOCRINE: No history of diabetes. Positive for hypothyroidism. PHYSICAL EXAMINATION VITAL SIGNS: Blood pressure 120/70, heart rate 60, afebrile. GENERAL: Patient is awake, alert, in no acute distress. HEENT: Head is normocephalic, atraumatic. Pupils equal and reactive. Oral mucosa pink and moist. There is a left submandibular mass somewhat tender. HEART: Heart sounds S1, S2, regular rate and rhythm. No rubs, murmurs or gallops. LUNGS: Slightly diminished in the left base. ABDOMEN: Soft, nontender. No masses or organomegaly. EXTREMITIES: No cyanosis, clubbing or edema. LABORATORY Hemoglobin 9.1, hematocrit 28, white cell count 5.2, platelet count 92. Sodium 140, potassium 5.0, BUN 27, creatinine 1.1. INR 1.2. IMAGING Chest x-ray: Stable bibasilar infiltrate, small left pleural effusion. ASSESSMENT AND RECOMMENDATIONS The x-ray has been evaluated by Dr. Koki Markham and at this time no recommendations for pleurodesis or evacuation of the small effusion. If the patient has further symptoms then possibly interventional radiology could drain that side, but at this time the patient feels better and again we will follow accordingly. Dictated by: MAC Eagle Koki NEFF /1:32 PM /3:24 PM
--- NOTE | 2016-07-07 16:10 | HHI.PR ---
Subjective Remarks Patient feels better status post transfusion. Hemoglobin level improved and is currently at 9.1. A port is placed today. As an outpatient there is a plan to resume Vidaza as a treatment for MDS. He is continuing to need oxygen. ENT consult is pending regarding a left mandibular swelling/mass. Objective Vital Signs Date Time Temp Pulse Resp B/P Pulse Ox O2 Delivery O2 Flow Rate FiO2 07/07/16 14:14 61 18 107/79 93 07/07/16 13:44 Nasal Cannula 3.00 07/07/16 13:44 63 18 105/67 94 07/07/16 13:14 61 20 120/74 92 07/07/16 12:59 98.4 54 20 139/83 95 07/07/16 12:59 Nasal Cannula 6.00 07/07/16 08:05 98.4 84 19 134/77 93 07/07/16 04:36 Nasal Cannula 3.00 07/07/16 04:36 98.1 74 20 153/65 95 07/07/16 00:09 Nasal Cannula 3.00 07/07/16 00:09 97.6 74 12 102/58 95 07/06/16 21:28 99.0 80 16 118/58 93 07/06/16 21:13 99.4 91 22 101/53 91 07/06/16 21:13 Nasal Cannula 3.00 07/06/16 20:40 Nasal Cannula 3.00 07/06/16 20:16 75 07/06/16 20:14 Room Air 07/06/16 20:14 99.8 70 18 106/61 85 07/06/16 17:50 98.5 72 20 117/56 92 07/06/16 17:35 99.1 79 20 131/85 93 I/O 07/06/16 07/06/16 07/06/16 07/07/16 07/07/16 07/07/16 07:00 15:00 23:00 07:00 15:00 23:00 Intake Total 750 ml 800 ml Output Total 0 ml 600 ml Balance 750 ml 200 ml Intake Oral 450 ml 500 ml Packed Cells 300 ml 300 ml Output Urine Total 0 ml 600 ml # Bowel Movements 0 0 Result Diagram: 07/07/16 0603 07/07/16 0603 Imaging Last Impressions Port Line Insertion 07/07/16 0000 Signed Impressions: Service Date/Time: Thursday, July 07, 2016 12:16 - CONCLUSION: Uncomplicated ultrasound and fluoroscopic guided implanted central venous port catheter placement as described in detail above. An 8 [place]ian Power port was placed. Marco Brothers MD Chest X-Ray 07/06/16 0000 Signed Impressions: Service Date/Time: Wednesday, July 06, 2016 14:15 - CONCLUSION: 1. Stable bibasilar infiltrates 2. Small left-sided pleural effusion Thiago Link MD Objective Remarks GENERAL: NAD, A&Ox3 SKIN: Warm and dry. HEAD: Normocephalic. Palpable mass at the posterior angle of the left mandible EYES: No scleral icterus. No injection or drainage. NECK: Supple, trachea midline. No JVD or lymphadenopathy. CARDIOVASCULAR: Regular rate and rhythm without murmurs, gallops, or rubs. RESPIRATORY: Breath sounds equal bilaterally. No accessory muscle use. GASTROINTESTINAL: Abdomen soft, non-tender, nondistended. MUSCULOSKELETAL: No cyanosis, or edema. Medications and IVs Administered Medications Medications (Trade) Dose Ordered Sig/Sadie Route PRN Reason Start Time Stop Time Status Last Admin Dose Admin Sodium Chloride (NS Flush) 2 ml BID IV FLUSH 07/06/16 21:00 07/07/16 09:00 Senna/Docusate Sodium (Kelli-Colace) 1 tab BID PO 07/06/16 21:00 07/06/16 23:05 Amoxicillin/ Clavulanate Potassium (Augmentin) 875 mg BID PO 07/06/16 21:00 07/07/16 09:17 Latanoprost (Xalatan 0.005% Opth Soln) 1 drop HS EACH EYE 07/06/16 21:00 07/06/16 23:05 Timolol Maleate (Timoptic 0.5% Opth Soln) 1 drop BID EACH EYE 07/06/16 21:00 07/07/16 09:00 Zolpidem Tartrate (Ambien) 5 mg HS PRN PO INSOMNIA 07/06/16 19:15 07/07/16 00:21 A/P Problem List: (1) Pleural effusion on left ICD Code: J90 (2) Pancytopenia ICD Code: D61.818 (3) Hypoxemia ICD Code: R09.02 (4) Anemia ICD Code: D64.9 (5) Shortness of breath ICD Code: R06.02 Assessment and Plan Assessment and plan 76-year-old male admitted with myelodysplastic syndrome, anemia, and acute hypoxia. Status post transfusion. Symptoms are improved but he remains oxygen dependent. Status post port placement today. ENT consult pending. Acute hypoxia Only a slight improvement thus far. May be multifactorial Possibility for underlying lung disease given history of smoking Myelodysplastic syndrome may be contributory Pleural effusion is not large at this time but could also be contributory Follow him pulse ox Supplemental oxygen Pulmonology consult next Screen for inflammation and autoimmunity Left mandibular mass Parotid versus tonsillar Patient provides history of tonsillectomy in the past ENT has been consulted Myelodysplastic syndrome Anemia Pancytopenia Consult hematology/oncology Transfused 2 units of packed red blood cells on 07/06/16 Follow CBC Plan for resumption of Vidaza as an outpatient Diabetes mellitus or 2 Insulin sliding scale Follow blood sugars Diabetic diet Benign prostatic hypertrophy History of prostate cancer Continue Flomax Glaucoma Continue baseline eye drops TIA Hx Follow clinically Hypertension Follow blood pressure Treatments as needed at this point Peripheral vascular disease Coronary artery disease Follow symptoms clinically Follow on telemetry No chest pain No claudication Nicotine use Degree of nicotine use his light the patient is counseled to quit No nicotine supplementation needed Problem Qualifiers (1) Anemia: Qualified Code: D64.9 - Anemia, unspecified type Nacho Carter MD July 07, 2016 16:10
--- NOTE | 2016-07-07 20:37 | HHI.PR ---
Subjective Remarks 76 YOWM with recurrent pl effusion,MDS,dysnoea has left submandibular area swelling Breathing better On [place] Objective Vital Signs Vital Signs Date Time Temp Pulse Resp B/P Pulse Ox O2 Delivery O2 Flow Rate FiO2 07/07/16 17:53 93 Nasal Cannula 3.00 07/07/16 16:05 97.4 59 18 110/52 94 07/07/16 14:14 61 18 107/79 93 07/07/16 13:44 Nasal Cannula 3.00 07/07/16 13:44 63 18 105/67 94 07/07/16 13:14 61 20 120/74 92 07/07/16 12:59 98.4 54 20 139/83 95 07/07/16 12:59 Nasal Cannula 6.00 07/07/16 08:15 83 07/07/16 08:05 98.4 84 19 134/77 93 07/07/16 04:36 Nasal Cannula 3.00 07/07/16 04:36 98.1 74 20 153/65 95 07/07/16 00:09 Nasal Cannula 3.00 07/07/16 00:09 97.6 74 12 102/58 95 07/06/16 21:28 99.0 80 16 118/58 93 07/06/16 21:13 99.4 91 22 101/53 91 07/06/16 21:13 Nasal Cannula 3.00 07/06/16 20:40 Nasal Cannula 3.00 I/O 07/06/16 07/06/16 07/06/16 07/07/16 07/07/16 07/07/16 07:00 15:00 23:00 07:00 15:00 23:00 Intake Total 750 ml 800 ml 490 ml Output Total 0 ml 600 ml 1200 ml Balance 750 ml 200 ml -710 ml Intake Oral 450 ml 500 ml 240 ml IV Total 250 ml Packed Cells 300 ml 300 ml Output Urine Total 0 ml 600 ml 1200 ml # Bowel Movements 0 0 1 Result Diagram: 07/07/1660207/07/16602 Objective Remarks GENERAL: WBWN Wm,NAD SKIN: Warm and dry. HEAD: Normocephalic. EYES: No scleral icterus. No injection or drainage. NECK: Supple, trachea midline. No JVD or lymphadenopathy. Left submandibular area swelling CARDIOVASCULAR: Regular rate and rhythm without murmurs, gallops, or rubs. RESPIRATORY: Breath sounds equal bilaterally. No accessory muscle use. Decreased BS left base GASTROINTESTINAL: Abdomen soft, non-tender, nondistended. MUSCULOSKELETAL: No cyanosis, or edema. BACK: Nontender without obvious deformity. No CVA tenderness. A/P Assessment and Plan Recurrenet Pleural effusion ? etiologt MDS Left Submandibular area swelling CAD, s/p CABG. S/P CEA PLAN: Cont Abx monitor pl effusion DW , ENT consulted Will evaluate for home Yordan Ramirez MD July 07, 2016 20:37
[2016-07-07] MEDS: LATANOPROST 0.005% OPHT SOLN 2.5 ML BTL EACH EYE SCH (22:02)
[2016-07-08] VITALS (7 sets, daily range): BP systolic 115–136; BP diastolic 55–67; PULSE 61–83; RESP 18–22; TEMP 97.3–98.4; O2SAT 93–96
[2016-07-08] MEDS ORDERED: LEVOTHYROXINE SODIUM 25 MCG TAB PO SCH (06:00)
[2016-07-08 07:11] LABS: HEMATOCRIT 27.8 % (39.0-51.0); MEAN CELL VOLUME 100.2 FL (80.0-100.0); MEAN CORPUSCULAR HEMOGLOBIN 31.9 PG (27.0-34.0); MEAN CORPUSCULAR HGB CONC 31.8 % (32.0-36.0); PLATELET COUNT 73 TH/MM3 (150-450); RED BLOOD COUNT 2.77 MIL/MM3 (4.50-5.90); RED CELL DISTRIBUTION WIDTH 22.6 % (11.6-17.2); WHITE BLOOD COUNT 3.7 TH/MM3 (4.0-11.0)
[2016-07-08 07:43] LABS: BICARBONATE 32.7 MEQ/L (21.0-32.0); POTASSIUM 4.8 MEQ/L (3.5-5.1)
[2016-07-08 07:44] LABS: RHEUMATOID FACTOR TRIGGER LESS THAN 10.0 IU/ML (0.0-14.9)
[2016-07-08 08:06] LABS: WESTERGREN SEDIMENTATION RATE GREATER THAN 140 mm/hr (0-20)
[2016-07-08] MEDS: AMOXICILLIN/CLAVULANATE K 875 MG TAB PO SCH ×2 (08:20→21:55)
[2016-07-08] MEDS: TIMOLOL MALEATE 0.5% OPHT SOLN 5 ML BTL EACH EYE SCH ×2 (08:20→21:57)
[2016-07-08] MEDS: DOCUSATE SODIUM 50 MG/SENNA 8.6 MG TAB PO SCH ×2 (08:20→21:00)
[2016-07-08] MEDS: SODIUM CHLORIDE 0.9% FLUSH 10 ML FLUSH IV FLUSH SCH ×3 (08:20→21:56)
[2016-07-08] MEDS ORDERED: methylPREDNISolone SOD SUCC 125 MG/2 ML VIAL IV PUSH ONE (09:00)
[2016-07-08] MEDS ORDERED: PRED10 PO (14:04)
[2016-07-08] MEDS ORDERED: OXYGENTANK NAS.CANULA ×3 (14:06→21:48)
--- NOTE | 2016-07-08 15:06 | HHI.DS ---
Discharge Summary Admission Date July 06, 2016 at 14:45 Discharge Date: Jul 08, 2016 Admitting Diagnosis hypoxemia, anemia, myelodysplasia, left pleural effusion (1) Hypoxemia ICD Code: R09.02 Diagnosis: Principal (2) Pleural effusion on left ICD Code: J90 Diagnosis: Secondary (3) Anemia ICD Code: D64.9 Diagnosis: Principal (4) Pancytopenia ICD Code: D61.818 Diagnosis: Principal (5) Shortness of breath ICD Code: R06.02 Diagnosis: Principal Procedures Port Placement (for chemotherapy at discharge) Brief History - From Admission Mr. Yang is a 76-year-old male. He comes in to the hospital today with fatigue, dyspnea, and hypoxia. Saturations at home has been as low as 74%. His peak finding at home and also in the ER, on room air, was 84%. With oxygen he is up into the 90s again, regarding his saturation. She has a history of myelodysplastic syndrome with elements of pancytopenia. This is likely contributory. He has had a myelodysplastic syndrome for about 3 years. In the last 3 months he reports that he has been having problems with recurrent hypoxia. She also has a problem with a recurrent pleural effusion. His history of smoking, pleural effusion, his degree of anemia, and possible cellular malformation could be contributory to his hypoxia. Vascular constriction may also accentuate the degree of peripheral oxygen saturation deficit. Aside from fatigue and dyspnea the patient does not report any confusion, loss of consciousness, presyncope, headache, or visual deficit. Other medical conditions include coronary artery disease and diabetes mellitus type 2. His senior telecommunications consultant Dr. Tilley has ordered 2 units of packed red blood cells, which are pending. She sees Dr. Tilley as his senior telecommunications consultant and Dr. Lundberg as his electrical troubleshooter as an outpatient. CBC/BMP: 07/08/16 0622 07/08/16 0626 Significant Findings Laboratory Tests Test 07/06/16 07/07/16 07/08/16 07/08/16 12:29 06:03 06:22 06:26 Red Blood Count 2.30 MIL/MM3 2.83 MIL/MM3 2.77 MIL/MM3 (4.50-5.90) (4.50-5.90) (4.50-5.90) Hemoglobin 7.7 GM/DL 9.1 GM/DL 8.8 GM/DL (13.0-17.0) (13.0-17.0) (13.0-17.0) Hematocrit 23.7 % 28.2 % 27.8 % (39.0-51.0) (39.0-51.0) (39.0-51.0) Mean Corpuscular Volume 103.1 FL 100.2 FL (80.0-100.0) (80.0-100.0) Red Cell Distribution Width 24.2 % 22.7 % 22.6 % (11.6-17.2) (11.6-17.2) (11.6-17.2) Platelet Count 125 TH/MM3 92 TH/MM3 73 TH/MM3 (150-450) (150-450) (150-450) Mean Platelet Volume 11.4 FL 11.7 FL 11.3 FL (7.0-11.0) (7.0-11.0) (7.0-11.0) Monocytes % 21 % (0-8) 25 % (0-8) Promyelocytes 1 % (0-0) Nucleated Red Blood Cells 78 /100 WBC 34 /100 WBC (0-0) (0-0) Toxic Granulation 1+ (NORMAL) Toxic Vacuolation PRESENT (NONE SEEN) Platelet Estimate LOW (NORMAL) LOW (NORMAL) Platelet Morphology Comment ENLARGED ENLARGED (NORMAL) (NORMAL) Ovalocytes 1+ (NORMAL) Prothrombin Time 12.8 SEC (9.8-11.6) Blood Urea Nitrogen 28 MG/DL (7-18) 27 MG/DL (7-18) 25 MG/DL (7-18) Estimat Glomerular Filtration 61 ML/MIN (>89) 64 ML/MIN (>89) 82 ML/MIN (>89) Rate Random Glucose 199 MG/DL 142 MG/DL 154 MG/DL (74-106) (74-106) (74-106) Total Creatine Kinase 20 U/L (39-308) Monocytes (%) (Auto) 40.4 % (0.0-8.0) Lymphocytes # (Auto) 0.8 TH/MM3 (1.0-4.8) Monocytes # (Auto) 2.1 TH/MM3 (0-0.9) Carbon Dioxide Level 32.1 MEQ/L 32.7 MEQ/L (21.0-32.0) (21.0-32.0) White Blood Count 3.7 TH/MM3 (4.0-11.0) Mean Corpuscular Hemoglobin 31.8 % Concent (32.0-36.0) Erythrocyte Sedimentation Rate GREATER THAN 140 mm/hr (0-20) Anion Gap 2 MEQ/L (5-15) C-Reactive Protein 16.80 MG/DL (0.00-0.30) Imaging Last Impressions Port Line Insertion 07/07/16 0000 Signed Impressions: Service Date/Time: Thursday, July 07, 2016 12:16 - CONCLUSION: Uncomplicated ultrasound and fluoroscopic guided implanted central venous port catheter placement as described in detail above. An 8 [place]ese Power port was placed. Marco Brothers MD Chest X-Ray 07/06/16 0000 Signed Impressions: Service Date/Time: Wednesday, July 06, 2016 14:15 - CONCLUSION: 1. Stable bibasilar infiltrates 2. Small left-sided pleural effusion Thiago Link MD Hospital Course Mr. Yang is a 76-year-old male who was admitted with acute hypoxia and anemia. He has myelodysplastic syndrome at baseline. Transfusion was provided which helped him clinically but he remains hypoxic off oxygen. There is a small pleural effusion but this does not appear to be contributory. She also had workup of a left mandibular mass. ENT evaluated this and no acute concerns are present. He'll follow-up with ENT as an outpatient. Rheumatoid factor marker was negative but he had a very positive sedimentation rate and CRP. An unknown inflammatory etiology may be present. This is not presenting like bronchial inflammation. Steroids have been initiated to monitor if he has benefit. Right now he needs oxygen at discharge. He is medically stable for discharge. He will follow-up with pulmonology and oncology as an outpatient. Pt Condition on Discharge: Stable Discharge Disposition: Discharge Home Discharge Time: > 30 minutes Discharge Instructions DIET: Follow Instructions for: As Tolerated, No Restrictions Activities you can perform: Regular-No Restrictions Follow up Referrals: Ear Nose Throat Oncology PCP Follow-up - 2 Weeks Pulmonology New Medications: Oxygen tank (Oxygen tank) 1 Ea Tank 2 LITER DANNY.CANULA CONTINUOUS Oxygen Concentrator Portable Gaseous 2 L/min via Nasal Cannula Continuous For 99 months HYPOXEMIA PREVENTION #1 CYLINDER Prednisone (Prednisone) 10 Mg Tab 10 MG PO DAILY 2 pills twice a day, day 1-4 1 pill twice a day, day 5-6 1 pill once a day, day 7-8 1/2 a pill, once a day, day 9-12 Inflammation #24 Ref 0 TAB Continued Medications: Amoxicillin-Clavulanate (Amoxicillin-Clavulanate) 875-125 mg Tab 875 MG PO BID not for use in CrCl <30 mL/minute Infection Ref 0 TAB Latanoprost Opth Drops (Latanoprost Opth Drops) 0.005% Drops 1 DROP EACH EYE HS Refrigerate until opened. Glaucoma #2.5 Ref 0 ML Levothyroxine (Levothyroxine) 25 Mcg Tab 25 MCG PO EVERY OTHER DAY Thyroid #30 Ref 0 TAB Timolol Opth Drops (Timolol Opth Drops) 0.5 % Soln 1 DROP EACH EYE BID Glaucoma #1 Ref 0 BOTTLE Zolpidem (Zolpidem) 5 Mg Tab 5 MG PO HS PRN INSOMNIA Ref 0 TAB Nacho Carter MD Jul 08, 2016 15:06
[2016-07-08] MEDS ORDERED: DOXY50 PO (15:41)
--- NOTE | 2016-07-08 19:55 | HHI.PR ---
Subjective Remarks 76 YOWM with recurrent pl effusion,MDS,dysnoea has left submandibular area swelling Breathing better On [place] home 02 arranged Objective Vital Signs Vital Signs Date Time Temp Pulse Resp B/P Pulse Ox O2 Delivery O2 Flow Rate FiO2 07/08/16 16:00 97.3 66 18 136/58 94 07/08/16 15:10 2.00 07/08/16 12:00 97.8 64 18 116/60 94 07/08/16 08:10 64 07/08/16 08:00 Nasal Cannula 3.00 07/08/16 08:00 98.3 70 18 115/57 96 07/08/16 04:00 Nasal Cannula 3.00 07/08/16 04:00 98.0 83 22 125/67 93 07/08/16 00:00 Nasal Cannula 3.00 07/08/16 00:00 98.4 61 22 127/56 94 07/07/16 23:12 59 07/07/16 21:40 Nasal Cannula 3.00 07/07/16 21:40 97.9 46 18 140/61 92 I/O 07/07/16 07/07/16 07/07/16 07/08/16 07/08/16 07/08/16 07:00 15:00 23:00 07:00 15:00 23:00 Intake Total 800 ml 490 ml 600 ml 200 ml 486 ml Output Total 600 ml 1200 ml 575 ml 400 ml 600 ml Balance 200 ml -710 ml 25 ml -200 ml -114 ml Intake Oral 500 ml 240 ml 600 ml 200 ml 480 ml IV Total 250 ml 6 ml Packed Cells 300 ml Output Urine Total 600 ml 1200 ml 575 ml 400 ml 600 ml # Bowel Movements 0 1 1 0 0 Result Diagram: 07/08/16 0622 07/08/16 0626 Objective Remarks GENERAL: WBWN Wm,NAD SKIN: Warm and dry. HEAD: Normocephalic. EYES: No scleral icterus. No injection or drainage. NECK: Supple, trachea midline. No JVD or lymphadenopathy. Left submandibular area swelling CARDIOVASCULAR: Regular rate and rhythm without murmurs, gallops, or rubs. RESPIRATORY: Breath sounds equal bilaterally. No accessory muscle use. Decreased BS left base GASTROINTESTINAL: Abdomen soft, non-tender, nondistended. MUSCULOSKELETAL: No cyanosis, or edema. BACK: Nontender without obvious deformity. No CVA tenderness. A/P Assessment and Plan Recurrenet Pleural effusion ? etiologt MDS Left Submandibular area swelling CAD, s/p CABG. S/P CEA PLAN: Cont Abx monitor pl effusion DC plans for home with 02 He will FU with Dr.Sohit Risa Ramirez,Yordan Mcarthur MD Jul 08, 2016 19:55
--- NOTE | 2016-07-08 21:34 | PD.ONC.PN ---
Subjective Subjective Remarks wants to go home and feels better on oxygen Objective Data Date Time Temp Pulse Resp B/P Pulse Ox O2 Delivery O2 Flow Rate FiO2 07/08/16 16:00 97.3 66 18 136/58 94 07/08/16 15:10 2.00 07/08/16 12:00 97.8 64 18 116/60 94 07/08/16 08:10 64 07/08/16 08:00 Nasal Cannula 3.00 07/08/16 08:00 98.3 70 18 115/57 96 07/08/16 04:00 Nasal Cannula 3.00 07/08/16 04:00 98.0 83 22 125/67 93 07/08/16 00:00 Nasal Cannula 3.00 07/08/16 00:00 98.4 61 22 127/56 94 07/07/16 23:12 59 07/07/16 21:40 Nasal Cannula 3.00 07/07/16 21:40 97.9 46 18 140/61 92 07/08/16 07/08/16 07/08/16 07:00 15:00 23:00 Intake Total 200 ml 486 ml Output Total 400 ml 600 ml Balance -200 ml -114 ml Result Diagram: 07/08/16 0622 07/08/16 0626 Laboratory Results Laboratory Tests Test 07/08/16 07/08/16 06:22 06:26 White Blood Count 3.7 TH/MM3 Red Blood Count 2.77 MIL/MM3 Hemoglobin 8.8 GM/DL Hematocrit 27.8 % Mean Corpuscular Volume 100.2 FL Mean Corpuscular Hemoglobin 31.9 PG Mean Corpuscular Hemoglobin 31.8 % Concent Red Cell Distribution Width 22.6 % Platelet Count 73 TH/MM3 Mean Platelet Volume 11.3 FL Erythrocyte Sedimentation Rate GREATER THAN 140 mm/hr Sodium Level 140 MEQ/L Potassium Level 4.8 MEQ/L Chloride Level 105 MEQ/L Carbon Dioxide Level 32.7 MEQ/L Anion Gap 2 MEQ/L Blood Urea Nitrogen 25 MG/DL Creatinine 0.90 MG/DL Estimat Glomerular Filtration 82 ML/MIN Rate Random Glucose 154 MG/DL Calcium Level 8.8 MG/DL C-Reactive Protein 16.80 MG/DL Rheumatoid Factor Screen NEGATIVE Rheumatoid Factor Titer IU/ML Administered Medications Medications (Trade) Dose Ordered Sig/Sadie Route PRN Reason Start Time Stop Time Status Last Admin Dose Admin Sodium Chloride (NS Flush) 2 ml BID IV FLUSH 07/06/16 21:00 07/08/16 08:20 Senna/Docusate Sodium (Kelli-Colace) 1 tab BID PO 07/06/16 21:00 07/06/16 23:05 Amoxicillin/ Clavulanate Potassium (Augmentin) 875 mg BID PO 07/06/16 21:00 07/08/16 08:20 Latanoprost (Xalatan 0.005% Opth Soln) 1 drop HS EACH EYE 07/06/16 21:00 07/07/16 22:02 Levothyroxine Sodium (Synthroid) 25 mcg Q48H PO 07/08/16 06:00 07/08/16 06:27 Timolol Maleate (Timoptic 0.5% Opth Soln) 1 drop BID EACH EYE 07/06/16 21:00 07/08/16 08:20 Zolpidem Tartrate (Ambien) 5 mg HS PRN PO INSOMNIA 07/06/16 19:15 07/07/16 22:01 Objective Remarks GENERAL: gaunt. SKIN: Warm and dry. HEAD: Normocephalic. EYES: No scleral icterus. No injection or drainage. NECK: Supple, trachea midline. No JVD or lymphadenopathy. LYMPHATIC: No adenopathy. CARDIOVASCULAR: Regular rate and rhythm without murmurs. RESPIRATORY: few rales at bases. . GASTROINTESTINAL: Abdomen soft, non-tender, nondistended. EXTREMITIES: No cyanosis, or edema. MUSCULOSKELETAL: poor muscle tone NEUROLOGICAL: No obvious focal deficit. Awake, alert, and oriented x3. PSYCHIATRIC: Appropriate mood and affect; insight and judgment normal. Assessment/Plan Assessment 1: port place and procedure uneventful and will make outpatient management easier. He has apt to see me next Tuesday 2: Need for 02 a bit overwhelming for patient and . I spoke to them about getting a low wt portable 02 concentrator with extra batteries so he can be more mobile. 3: will resume Vidaza as outpatient. prognosis poor in part due to pulmonary status 4: elevated sed rate poorly explained. no overt evidence of an autoimmune arthritis. Plan 1. Cm Tilley MD Jul 08, 2016 21:33
[2016-07-08] MEDS: ZOLPIDEM TARTRATE 5 MG TAB PO PRN (21:55)
[2016-07-08] MEDS: predniSONE 20 MG TAB PO SCH (21:55)
[2016-07-08] MEDS: LATANOPROST 0.005% OPHT SOLN 2.5 ML BTL EACH EYE SCH (21:56)
[2016-07-09] VITALS: BP 119/57; PULSE 54; RESP 20; TEMP 98; O2SAT 94
[2016-07-09 04:00] VITALS: BP 151/73; PULSE 70; RESP 20; TEMP 98.2; O2SAT 93
[2016-07-09 08:00] VITALS: BP 142/93; PULSE 99; RESP 18; TEMP 97.4; O2SAT 96
[2016-07-09] MEDS: TIMOLOL MALEATE 0.5% OPHT SOLN 5 ML BTL EACH EYE SCH (08:28)
[2016-07-09] MEDS: AMOXICILLIN/CLAVULANATE K 875 MG TAB PO SCH (08:29)
[2016-07-09] MEDS: predniSONE 20 MG TAB PO SCH (08:29)
[2016-07-09] MEDS: DOCUSATE SODIUM 50 MG/SENNA 8.6 MG TAB PO SCH (08:30)
[2016-07-09] MEDS: SODIUM CHLORIDE 0.9% FLUSH 10 ML FLUSH IV FLUSH SCH (08:30)
--- NOTE | 2016-07-09 11:08 | HHI.PR ---
Subjective Remarks 76 YOWM with recurrent pl effusion,MDS,dysnoea has left submandibular area swelling Breathing better On [place] home 02 arranged Anxious to go home Objective Vital Signs Vital Signs Date Time Temp Pulse Resp B/P Pulse Ox O2 Delivery O2 Flow Rate FiO2 07/09/16 08:00 97.4 99 18 142/93 96 07/09/16 08:00 Nasal Cannula 2.00 07/09/16 04:00 98.2 70 20 151/73 93 07/09/16 02:45 Nasal Cannula 2.00 07/09/16 00:00 98.0 54 20 119/57 94 07/08/16 20:00 98.0 64 20 127/55 95 07/08/16 16:00 97.3 66 18 136/58 94 07/08/16 15:10 2.00 07/08/16 12:00 97.8 64 18 116/60 94 I/O 07/08/16 07/08/16 07/08/16 07/09/16 07/09/16 07/09/16 07:00 15:00 23:00 07:00 15:00 23:00 Intake Total 200 ml 486 ml 240 ml 240 ml Output Total 400 ml 600 ml Balance -200 ml -114 ml 240 ml 240 ml Intake Oral 200 ml 480 ml 240 ml 240 ml IV Total 6 ml Output Urine Total 400 ml 600 ml # Voids 0 3 # Bowel Movements 0 0 0 0 Result Diagram: 07/08/1622 07/08/16 0626 Objective Remarks GENERAL: WBWN Wm,NAD SKIN: Warm and dry. HEAD: Normocephalic. EYES: No scleral icterus. No injection or drainage. NECK: Supple, trachea midline. No JVD or lymphadenopathy. Left submandibular area swelling CARDIOVASCULAR: Regular rate and rhythm without murmurs, gallops, or rubs. RESPIRATORY: Breath sounds equal bilaterally. No accessory muscle use. Decreased BS left base GASTROINTESTINAL: Abdomen soft, non-tender, nondistended. MUSCULOSKELETAL: No cyanosis, or edema. BACK: Nontender without obvious deformity. No CVA tenderness. A/P Assessment and Plan Recurrenet Pleural effusion ? etiologt MDS Left Submandibular area swelling CAD, s/p CABG. S/P CEA PLAN: Cont Abx monitor pl effusion DC plans for home with 02 He will FU with Dr.Sohit Risa COOL pt at length Yordan Ramirez MD Jul 09, 2016 11:08
== END 2016-07-09 11:32 | disposition home or self-care (01) | DRG 809 ==
LOC: NEPE 11:51 → NEDA 14:45 → N04A 15:59
PROVIDERS: ADMIT Hospitalist; ATTEND Hospitalist
PROC: 30233N1 Transfusion of Nonautologous Red Blood Cells into Peripheral Vein, Percutaneous Approach (ICD-10-PCS; 2016-07-06)
PROC: 0JH60XZ Insertion of Tunneled Vascular Access Device into Chest Subcutaneous Tissue and Fascia, Open Approach (ICD-10-PCS; principal; 2016-07-07)
PROC: 05HM33Z Insertion of Infusion Device into Right Internal Jugular Vein, Percutaneous Approach (ICD-10-PCS; 2016-07-07)
PROC: B543ZZA Ultrasonography of Right Jugular Veins, Guidance (ICD-10-PCS; 2016-07-07)
DX: D61.818 Other pancytopenia (principal); J90 Pleural effusion, not elsewhere classified; I48.91 Unspecified atrial fibrillation; R09.02 Hypoxemia; D46.9 Myelodysplastic syndrome, unspecified; I10 Essential (primary) hypertension; E11.9 Type 2 diabetes mellitus without complications; K04.7 Periapical abscess without sinus; I73.9 Peripheral vascular disease, unspecified; Z85.46 Personal history of malignant neoplasm of prostate; Z92.3 Personal history of irradiation; N40.0 Benign prostatic hyperplasia without lower urinary tract symptoms; I25.10 Atherosclerotic heart disease of native coronary artery without angina pectoris; Z95.5 Presence of coronary angioplasty implant and graft; Z95.1 Presence of aortocoronary bypass graft; F17.210 Nicotine dependence, cigarettes, uncomplicated; H40.9 Unspecified glaucoma; E03.9 Hypothyroidism, unspecified; Z85.828 Personal history of other malignant neoplasm of skin; Z86.73 Personal history of transient ischemic attack (TIA), and cerebral infarction without residual deficits
CPT/HCPCS: 36430; 36561; 71010; 76937; 77001; 80048; 82550; 84484; 85007; 85027; 85610; 85652; 85730; 86038; 86140; 86430; 86850; 86900; 86901; 86920; 93005; 94620; 99152; 99153; 99285; C1788; J1642; J2250; J2930; J3010; J3370; J7050; J7512; P9016

== ENCOUNTER 2016-07-26 11:37 | Inpatient (IN) | payer OTHER, MEDICARE ==
[~2016-07-26] VITALS: Ht 185.4 cm; Wt 84.0 kg
[~2016-07-26 11:37] MED LIST changes: +DOXY50 PO; +LATA0.002 EACH EYE; +OXYGENTANK NAS.CANULA; +PRED10 PO; -TAMS5CAP PO
[2016-07-26 11:39] VITALS: BP 104/54; PULSE 84; RESP 15; TEMP 97.8; O2SAT 99
[2016-07-26] MEDS ORDERED: CLINDAMYCIN INJ 600 MG in SODIUM CHLORIDE 0.9% INJ 100 ML IV ONE (13:00)
--- NOTE | 2016-07-26 13:26 | PD ---
HPI Chief Complaint: Skin Problem Time Seen by Provider: 12:40 Travel History International Travel<30 days: No Contact w/Intl Traveler<30days: No Traveled to known affect area: No History of Present Illness HPI 76yo M with PMH of myelodysplastic syndrome, CAD, DM presents to the ED with c/ o left knee pain s/p fall last week. States it was just a scab but has gotten more red and painful. Denies any fever, chest pain, sob, n/v, abdominal pain, focal weakness or numbness. Pt also with left medial big toe ulcer for a few weeks from his foot rubbing his shoe. PFSH Past Medical History Asthma: No Autoimmune Disease: No Blood Disorders: No Heart Rhythm Problems: Yes (a fib) Cancer: Yes Cardiovascular Problems: Yes (htn; bypass) High Cholesterol: Yes Chemotherapy: Yes Chest Pain: No Congestive Heart Failure: No COPD: Yes Diabetes: Yes Patient Takes Glucophage: No Diminished Hearing: Yes Endocrine: No Gastrointestinal Disorders: No Glaucoma: Yes Genitourinary: Yes Headaches: Yes Hypertension: Yes Immune Disorder: No Implanted Vascular Access Dvce: Yes Medical other: No Musculoskeletal: Yes (weak) Neurologic: Yes Psychiatric: No Reproductive: No Respiratory: Yes Immunizations Current: Yes Myocardial Infarction: No Radiation Therapy: Yes (SEEDED prostate) Sleep Apnea: No Thyroid Disease: Yes Past Surgical History AICD: No Arteriovenous Shunt: No Body Medical Devices: STENT CARDIAC Cardiac Surgery: Yes (LEFT CEA 11/2005; CARDIAC STENT 09/12, TRIPLE BYPASS) Genitourinary Surgery: Yes (PROSTATE CA 04/09) Insulin Pump: No Joint Replacement: No Oral Surgery: Yes (GUMS) Pacemaker: No Other Surgery: Yes Social History Alcohol Use: No Tobacco Use: Yes ( quit a week ago, was smoking 1ppd for 50 yrs) Substance Use: No Allergies-Medications (Allergen,Severity, Reaction): Coded Allergies: No Known Allergies (Verified , 07/26/16) Reported Meds & Prescriptions Reported Meds & Active Scripts Active Doxycycline Hyclate 50 Mg Cap 50 Mg PO DAILY Reported Aspirin Adult Low Strength (Aspirin) 81 Mg Tabdr 81 Mg PO DAILY Oxygen tank (Oxygen) 1 Ea Tank 2 Liter DANNY.CANULA CONTINUOUS Oxygen Concentrator Portable Gaseous 2 L/min via Nasal Cannula Continuous For 99 months Latanoprost Opth Drops (Latanoprost) 0.005% Drops 1 Drop EACH EYE HS Refrigerate until opened. Levothyroxine (Levothyroxine Sodium) 25 Mcg Tab 25 Mcg PO MOWEFR Take 1 tablet (25mcg) daily on Tuesday,Tuesday and Tuesday Timolol Opth Drops 0.5 % Soln 1 Drop EACH EYE BID Zolpidem (Zolpidem Tartrate) 5 Mg Tab 5 Mg PO HS PRN Review of Systems Except as stated in HPI: all other systems reviewed are Neg Physical Exam Narrative GENERAL: 76yo M not in distress. SKIN: Focused skin assessment warm/dry. HEAD: Atraumatic. Normocephalic. EYES: Pupils equal and round. No scleral icterus. No injection or drainage. ENT: No nasal bleeding or discharge. Mucous membranes pink and moist. NECK: Trachea midline. No JVD. CARDIOVASCULAR: Regular rate and rhythm. No murmur appreciated. RESPIRATORY: No accessory muscle use. Clear to auscultation. Breath sounds equal bilaterally. GASTROINTESTINAL: Abdomen soft, non-tender, nondistended. MUSCULOSKELETAL: LLE: +6cm by 6cm erythema with central opening, superficial ulcer. No purulent drainage. Bilateral venous discoloration and edema. Left foot: +Small 1cm circular ulcer medial left toe. NEUROLOGICAL: Awake and alert. No obvious cranial nerve deficits. Motor grossly within normal limits. Normal speech. PSYCHIATRIC: Appropriate mood and affect; insight and judgment normal. Data Data Last Documented VS Vital Signs Date Time Temp Pulse Resp B/P Pulse Ox O2 Delivery O2 Flow Rate FiO2 07/26/16 15:22 68 18 137/65 97 Room Air 07/26/16 11:39 97.8 Orders Knee, Ltd (1 Or 2vws) (07/26/16 ) Foot, Limited (2vws) (07/26/16 ) Basic Metabolic Panel (Bmp) (07/26/16 12:52) Complete Blood Count With Diff (07/26/16 12:52) Clindamycin Inj (Cleocin Inj) (07/26/16 13:00) Westergren Sedimentation Rate (07/26/16 13:04) C-Reactive Protein (Crp) (07/26/16 13:06) Place In Observation (07/26/16 ) Vital Signs (Adult) Q4H (07/26/16 16:38) Activity Oob With Assistance (07/26/16 16:38) Sodium Chloride 0.9% Flush (Ns Flush) (07/26/16 16:45) Sodium Chloride 0.9% Flush (Ns Flush) (07/26/16 21:00) Acetaminophen (Tylenol) (07/26/16 16:45) Basic Metabolic Panel (Bmp) (07/27/16 06:00) Complete Blood Count With Diff (07/27/16 06:00) Scd Bilateral/Knee High MEREDITH.BID (07/26/16 16:38) Naloxone Inj (Narcan Inj) (07/26/16 16:45) Docusate Sodium-Senna (Kelli-Colace) (07/26/16 21:00) Magnesium Hydroxide Liq (Milk Of Magnesi (07/26/16 16:45) Sennosides (Senokot) (07/26/16 16:45) Bisacodyl Supp (Dulcolax Supp) (07/26/16 16:45) Lactulose Liq (Lactulose Liq) (07/26/16 16:45) Admit Order (Ed Use Only) (07/26/16 16:40) Labs Laboratory Tests Test 07/26/16 13:06 White Blood Count 2.5 TH/MM3 Red Blood Count 2.15 MIL/MM3 Hemoglobin 7.0 GM/DL Hematocrit 21.1 % Mean Corpuscular Volume 98.6 FL Mean Corpuscular Hemoglobin 32.6 PG Mean Corpuscular Hemoglobin 33.1 % Concent Red Cell Distribution Width 21.9 % Platelet Count 62 TH/MM3 Mean Platelet Volume 11.4 FL Neutrophils (%) (Auto) 53.0 % Lymphocytes (%) (Auto) 20.1 % Monocytes (%) (Auto) 26.2 % Eosinophils (%) (Auto) 0.3 % Basophils (%) (Auto) 0.4 % Neutrophils # (Auto) 1.3 TH/MM3 Lymphocytes # (Auto) 0.5 TH/MM3 Monocytes # (Auto) 0.6 TH/MM3 Eosinophils # (Auto) 0.0 TH/MM3 Basophils # (Auto) 0.0 TH/MM3 CBC Comment AUTO DIFF Differential Total Cells 100 Counted Neutrophils % (Manual) 65 % Lymphocytes % 24 % Monocytes % 10 % Eosinophils % 1 % Neutrophils # (Manual) 1.6 TH/MM3 Nucleated Red Blood Cells 43 /100 WBC Differential Comment FINAL DIFF MANUAL Platelet Estimate LOW Platelet Morphology Comment ENLARGED Erythrocyte Sedimentation Rate GREATER THAN 140 mm/hr Sodium Level 141 MEQ/L Potassium Level 4.4 MEQ/L Chloride Level 106 MEQ/L Carbon Dioxide Level 30.2 MEQ/L Anion Gap 5 MEQ/L Blood Urea Nitrogen 34 MG/DL Creatinine 1.04 MG/DL Estimat Glomerular Filtration 69 ML/MIN Rate Random Glucose 175 MG/DL Calcium Level 9.0 MG/DL C-Reactive Protein 7.83 MG/DL Vitamin B12 Level 1665 PG/ML Thyroid Stimulating Hormone 1.780 uIU/ML 3rd Gen [facility] Medical Decision Making Medical Screen Exam Complete: Yes Emergency Medical Condition: Yes Differential Diagnosis Cellulitis vs. osteomyelitis vs. nonhealing wound in immunocompromised patient Narrative Course 76yo M with myelodysplastic syndrome who had finished 5 days of chemotherapy last week here with worsening left knee pain after falling. States the redness has increased over 1 day or 2. Labs reviewed, WBC of 2.5. H/H is low at 7/21.1. States it has never been this low. Elevated C-reactive protein and ESR. Xray left knee negative for acute process. Xray left foot showed degenerative changes. No acute abnormality. Will admit for osteomyelitis work up. Diagnosis Primary Impression: Infected abrasion of left knee Qualified Code: S80.212A - Infected abrasion of left knee, initial encounter Admitting Information Admitting Physician Requests: Lakeisha Otoole DO Jul 26, 2016 13:26
[2016-07-26 13:34] LABS: AUTOMATED NEUTROPHIL # 1.3 TH/MM3 (1.8-7.7); BASOPHIL % 0.4 % (0.0-2.0); EOSINOPHIL % 0.3 % (0.0-4.0); HEMATOCRIT 21.1 % (39.0-51.0); LYMPH % 20.1 % (9.0-44.0); LYMPHOCYTE # 0.5 TH/MM3 (1.0-4.8); MEAN CELL VOLUME 98.6 FL (80.0-100.0); MEAN CORPUSCULAR HEMOGLOBIN 32.6 PG (27.0-34.0); MEAN CORPUSCULAR HGB CONC 33.1 % (32.0-36.0); MONO % 26.2 % (0.0-8.0); PLATELET COUNT 62 TH/MM3 (150-450); RED BLOOD COUNT 2.15 MIL/MM3 (4.50-5.90); RED CELL DISTRIBUTION WIDTH 21.9 % (11.6-17.2); WHITE BLOOD COUNT 2.5 TH/MM3 (4.0-11.0)
[2016-07-26 13:36] LABS: BICARBONATE 30.2 MEQ/L (21.0-32.0); POTASSIUM 4.4 MEQ/L (3.5-5.1)
[2016-07-26] MEDS ORDERED: ASPI1TAB91 PO (13:41)
[2016-07-26 13:50] LABS: HEMO FLAGS AUTO DIFF
[2016-07-26 14:07] LABS: CORRECTED NUCLEATED RBC 43 /100 WBC (0-0); EOSINOPHILS 1 % (0-4); NEUTROPHIL # MANUAL DIFF 1.6 TH/MM3 (1.8-7.7); POLYS (SEG NEUTROPHILS) 65 % (16-70); WBC DIFF SAMPLE 100
[2016-07-26 14:08] LABS: PLATELET ESTIMATE SMEAR LOW (NORMAL); PLATELET MORPHOLOGY ENLARGED (NORMAL); SCAN/DIFF FINAL DIFF MANUAL
--- NOTE | 2016-07-26 14:12 | RADRPT ---
EXAM DATE/TIME: 07/26/2016 13:09 [facility] COMPARISON: KNEE LEFT LTD (1 OR 2VWS), July 26, 2016, 13:07. INDICATIONS : Left foot pain, fall. MEDICAL HISTORY : Carcinoma, prostatic. SURGICAL HISTORY : None. ENCOUNTER: Initial ACUITY: 1 week PAIN SCORE: 7/10 LOCATION: Left lateral foot FINDINGS: There is mild bunion deformity and osteoarthritic change in the metatarsal phalangeal joint of the fi rst digit. There mild degenerative changes in the midfoot. The osseous structures are otherwise intac t. There is atherosclerotic calcification of the dorsalis pedis. CONCLUSION: 1. Degenerative changes. No acute abnormality identified. Nacho Maldonado MD on July 26, 2016 at 14:03 Board Certified Radiologist. This report was verified electronically.
--- NOTE | 2016-07-26 14:35 | RADRPT ---
EXAM DATE/TIME: 07/26/2016 13:07 [facility] COMPARISON: No previous studies available for comparison. INDICATIONS : Left knee pain, fall. MEDICAL HISTORY : Carcinoma, prostatic. SURGICAL HISTORY : None. ENCOUNTER: Initial ACUITY: 1 week PAIN SCORE: 7/10 LOCATION: Left anterior knee, patella FINDINGS: Moderate vascular calcifications are noted. There is no evidence for joint effusion. Bone density i s normal. Alignment is anatomic. Fracture is not appreciated. CONCLUSION: 1. Negative for an acute process. 2. If patient remains symptomatic complete series is suggested. Vladimir Maldonado MD FACR on July 26, 2016 at 13:47 Board Certified Radiologist. This report was verified electronically.
[2016-07-26 15:22] VITALS: BP 137/65; PULSE 68; RESP 18; O2SAT 97
[2016-07-26] MEDS ORDERED: LACTULOSE SYRUP 20 GM/30 ML CUP PO PRN (16:45)
[2016-07-26] MEDS ORDERED: NALOXONE HCL 0.4 MG/ML AMP IV PRN (16:45)
[2016-07-26] MEDS ORDERED: MAGNESIUM HYDROXIDE SUSP 30 ML CUP PO PRN (16:45)
[2016-07-26] MEDS ORDERED: SENNOSIDES 8.6 MG TAB PO PRN (16:45)
[2016-07-26] MEDS ORDERED: BISACODYL 10 MG SUPP RECTAL PRN (16:45)
[2016-07-26] MEDS ORDERED: ACETAMINOPHEN 325 MG TAB PO PRN ×2 (16:45→17:30)
[2016-07-26] MEDS ORDERED: SODIUM CHLORIDE 0.9% FLUSH 10 ML FLUSH IV FLUSH PRN (16:45)
--- NOTE | 2016-07-26 17:11 | HHI.HP ---
HPI Service [facility] Primary Care Physician Morales Sutherland MD Admission Diagnosis Symptomatic anemia and r/o osteomyelitis Diagnoses: Chief Complaint: left knee pain/swelling Travel History International Travel<30 Days: No Contact w/Intl Traveler <30 Da: No Traveled to Known Affected Are: No History of Present Illness Written by Cristela Constantino, acting as scribe for Dr. Shankar on 07/26/16 at 17:11. 76-year-old male with history of myelodysplastic syndrome undergoing chemotherapy, diabetes mellitus, CAD s/p CABG, pleural effusions s/p thoracentesis, COPD, O2 dependent, AAA s/p repair, carotid stenosis s/p CEA, presents with a 1 week history of left knee wound, concerned for infection. The patient's is at bedside who assists with the history. She reports the patient fell in a parking lot 1 week ago and injured his left knee. She states initially the knee just had an abrasion. She has been putting Neosporin on the wound however last night she took the bandage off and the wound was much more edematous and erythematous. She did notice a small amount of pus from the wound this morning. Denies any fevers/chills. The patient is currently undergoing chemotherapy with Vidaza for his MDS, last treatment last week. He sees oncologist Dr. Tilley. The patient did have some nausea and vomiting this past Sunday 07/23. The patient reports over the past month he has felt very fatigued and weak, worse with any minimal exertion. Denies any chest pain. He has shortness of breath at baseline with his COPD. His engineer operations and maintenance is Dr. Ramirez. His ring spinner is Dr. Ritter. His vascular surgeon is Dr. Cintron. Review of Systems Except as stated in HPI: all other systems reviewed are Neg Past Family Social History Past Medical History Myelodysplastic syndrome Diabetes mellitus Neuropathy COPD O2 dependent CAD Prostate cancer Hypothyroidism Pleural effusions Past Surgical History CABG in 2009 Cardiac stent Aortic aneurysm repair CEA x3 Prostate seed placement Port placement Thoracentesis Reported Medications Reported Meds & Active Scripts Active Doxycycline Hyclate 50 Mg Cap 50 Mg PO DAILY Reported Aspirin Adult Low Strength (Aspirin) 81 Mg Tabdr 81 Mg PO DAILY Oxygen tank (Oxygen) 1 Ea Tank 2 Liter DANNY.CANULA CONTINUOUS Oxygen Concentrator Portable Gaseous 2 L/min via Nasal Cannula Continuous For 99 months Latanoprost Opth Drops (Latanoprost) 0.005% Drops 1 Drop EACH EYE HS Refrigerate until opened. Levothyroxine (Levothyroxine Sodium) 25 Mcg Tab 25 Mcg PO MOWEFR Take 1 tablet (25mcg) daily on Tuesday,Tuesday and Tuesday Timolol Opth Drops 0.5 % Soln 1 Drop EACH EYE BID Zolpidem (Zolpidem Tartrate) 5 Mg Tab 5 Mg PO HS PRN Allergies: Coded Allergies: No Known Allergies (Verified , 07/26/16) Active Ordered Medications Current Medications Medications (Trade) Dose Ordered Sig/Sadie Route Start Time Stop Time Status Last Admin (NS Flush) 2 ml UNSCH PRN IV FLUSH 07/26/16 16:45 (NS Flush) 2 ml BID IV FLUSH 07/26/16 21:00 UNV (Tylenol) 650 mg Q4H PRN PO 07/26/16 16:45 (Narcan Inj) 0.4 mg UNSCH PRN IV 07/26/16 16:45 (Kelli-Colace) 1 tab BID PO 07/26/16 21:00 (Milk Of Magnesia Liq) 30 ml Q12H PRN PO 07/26/16 16:45 (Senokot) 17.2 mg Q12H PRN PO 07/26/16 16:45 (Dulcolax Supp) 10 mg DAILY PRN RECTAL 07/26/16 16:45 (Lactulose Liq) 30 ml DAILY PRN PO 07/26/16 16:45 Family History Mother with peripheral vascular disease and abdominal aortic aneurysm Father with prostate cancer Social History Prior heavy tobacco use for 50+ years, cut down to 3 cigarettes a day in April 2016 Prior social alcohol use, none recently Denies any illicit drug use Physical Exam Vital Signs Vital Signs Date Time Temp Pulse Resp B/P Pulse Ox O2 Delivery O2 Flow Rate FiO2 07/26/16 15:22 68 18 137/65 97 Room Air 07/26/16 13:18 74 19 07/26/16 11:39 97.8 84 15 104/54 99 Physical Exam GENERAL: Chronically ill appearing elderly male patient in NAD. SKIN: Warm and dry. No rash. Pale skin. HEAD: Normocephalic. Atraumatic. EYES: Pupils equal and round. No scleral icterus. No injection or drainage. ENT: No nasal bleeding or discharge. Mucous membranes pink and moist. NECK: Supple. Trachea midline. CARDIOVASCULAR: Regular rate and rhythm. S1, S2 noted. No murmur appreciated. RESPIRATORY: No accessory muscle use. Crackles at right base, otherwise clear to auscultation. Breath sounds equal bilaterally. GASTROINTESTINAL: Abdomen soft, non-tender, nondistended. Normoactive bowel sounds x4. MUSCULOSKELETAL: No obvious deformities. 2+ bilateral lower extremity edema. Left anterior knee with ulceration, surrounding erythema/edema limited to the knee, no active drainage from the wound. NEUROLOGICAL: Awake and alert. No obvious cranial nerve deficits. Motor grossly within normal limits. Normal speech. PSYCHIATRIC: Appropriate mood and affect; insight and judgment normal. Laboratory Laboratory Tests Test 07/26/16 13:06 White Blood Count 2.5 Red Blood Count 2.15 Hemoglobin 7.0 Hematocrit 21.1 Mean Corpuscular Volume 98.6 Mean Corpuscular Hemoglobin 32.6 Mean Corpuscular Hemoglobin 33.1 Concent Red Cell Distribution Width 21.9 Platelet Count 62 Mean Platelet Volume 11.4 Neutrophils (%) (Auto) 53.0 Lymphocytes (%) (Auto) 20.1 Monocytes (%) (Auto) 26.2 Eosinophils (%) (Auto) 0.3 Basophils (%) (Auto) 0.4 Neutrophils # (Auto) 1.3 Lymphocytes # (Auto) 0.5 Monocytes # (Auto) 0.6 Eosinophils # (Auto) 0.0 Basophils # (Auto) 0.0 CBC Comment AUTO DIFF Differential Total Cells 100 Counted Neutrophils % (Manual) 65 Lymphocytes % 24 Monocytes % 10 Eosinophils % 1 Neutrophils # (Manual) 1.6 Nucleated Red Blood Cells 43 Differential Comment FINAL DIFF MANUAL Platelet Estimate LOW Platelet Morphology Comment ENLARGED Erythrocyte Sedimentation Rate GREATER THAN 140 Sodium Level 141 Potassium Level 4.4 Chloride Level 106 Carbon Dioxide Level 30.2 Anion Gap 5 Blood Urea Nitrogen 34 Creatinine 1.04 Estimat Glomerular Filtration 69 Rate Random Glucose 175 Calcium Level 9.0 C-Reactive Protein 7.83 Result Diagram: 07/26/16 1306 07/26/16 1306 Imaging Last Impressions Knee X-Ray 6/19/17 0000 Signed Impressions: Service Date/Time: Tuesday, July 26, 2016 13:07 - CONCLUSION: 1. Negative for an acute process. 2. If patient remains symptomatic complete series is suggested. Vladimir Maldonado MD FACR Foot X-Ray 07/26/16 0000 Signed Impressions: Service Date/Time: Tuesday, July 26, 2016 13:09 - CONCLUSION: 1. Degenerative changes. No acute abnormality identified. Nacho Maldonado MD Assessment and Plan Problem List: (1) Infected abrasion of left knee ICD Code: S80.212A Status: Acute (2) Symptomatic anemia ICD Code: D64.9 Status: Acute (3) Generalized weakness ICD Code: R53.1 Status: Acute Assessment and Plan 76-year-old male with history of myelodysplastic syndrome undergoing chemotherapy, diabetes mellitus, CAD s/p CABG, pleural effusions s/p thoracentesis, COPD, O2 dependent, AAA s/p repair, carotid stenosis s/p CEA, presents with a 1 week history of left knee wound, concerned for infection. Left Knee Wound: concern for cellulitis, osteomyelitis. S/p fall 1 week ago, now with ulceration, surrounding erythema/edema. Knee Xray done in ER, images reviewed, negative for acute process. ESR >140 which is consistent with labs done 07/08/16. Also CRP elevated at 7.83 however previous labs 07/08/16 with CRP 16.8. -S/p IV Clinda in the ER, will hold off on antibiotics for now with no leukocytosis, fever, or tachycardia -Check left knee MRI with & without contrast Acute on Chronic Symptomatic Anemia: patient with weakness/fatigue/dyspnea. Hgb 7.0. -transfuse 1u pRBCs with IV lasix 20mg x1 -monitor CBC -consult patient's oncologist Myelodysplastic Syndrome: acute, undergoing chemotherapy with Vidaza. -consult patient's oncologist Dr. Tilley Pancytopenia w/Neutropenia/Thrombocytopenia: WBC 2.5. Platelets 62K. Suspect secondary to myelodysplasia and recent chemotherapy. No current fever. -monitor CBC -monitor for fevers -avoid antiplatelet therapy Diabetes Mellitus: chronic, stable -monitor accu-cheks and cover with SSI Generalized Weakness/Fatigue/Dyspnea: suspect multifactorial, undergoing chemotherapy, with anemia, chronic deconditioning, advanced COPD. -treat underlying etiologies -consult PT -add Ensure tid to each meal -check vitamin B12 and TSH COPD, O2 Dependent: chronic. Patient's engineer operations and maintenance is Dr. Ramirez. -continue O2 as needed -duonebs prn SOB/wheezing -avoid fluid overload CAD s/p CABG, AAA s/p repair, Carotid Stenosis s/p CEA: chronic. Real Estate Operations Manager is Dr. Ritter. Vascular surgeon is Dr. Cintron. -continue patient's aspirin DVT Prophylaxis: SCDs This note was transcribed by alan Constantino PA-C. I, Dr. Vincent Shankar personally performed the history, physical exam, and medical decision making; and confirmed the accuracy of the information in the transcribed note. Authenticated by Dr. Vincent Shankar on 07/26/16 at 22:06. Discussed Condition With Patient, Patient's , ER Physician Certification 2 Midnight Certification Type: Admission for Inpatient Services Order for Inpatient Services The services are ordered in accordance with Medicare regulations or non- Medicare payer requirements, as applicable. In the case of services not specified as inpatient-only, they are appropriately provided as inpatient services in accordance with the 2-midnight benchmark. Estimated LOS (days): 3 days is the estimated time the patient will need to remain in the hospital, assuming treatment plan goals are met and no additional complications. Post-Hospital Plan: Not yet determined Cristela Constantino PA-C Jul 26, 2016 17:11 Sher Shankar DO Jul 26, 2016 22:06
[2016-07-26] MEDS ORDERED: SODIUM CHLOR 0.9% 250 ML INJ 250 ML IV ONE (17:30)
[2016-07-26] MEDS ORDERED: diphenhydrAMINE HCL 25 MG CAP PO PRN (17:30)
[2016-07-26] MEDS ORDERED: GLUCAGON 1 MG/ML VIAL OTHER PRN (17:45)
[2016-07-26] MEDS ORDERED: ZOLPIDEM TARTRATE 5 MG TAB PO PRN (17:45)
[2016-07-26] MEDS ORDERED: DEXTROSE 50% IN WATER 50 ML VIAL(D50) IV PRN (17:45)
[2016-07-26] MEDS ORDERED: FUROSEMIDE 20 MG/2 ML VIAL IV ONE (18:00)
[2016-07-26] MEDS ORDERED: GADODIAMIDE PF 287 MG/ML 5 ML VIAL (for RAD MRI) IV ONE (20:10)
--- NOTE | 2016-07-26 20:43 | RADRPT ---
EXAM DATE/TIME: 07/26/2016 19:27 [place] COMPARISON: KNEE LEFT LTD (1 OR 2VWS), July 26, 2016, 13:07. INDICATIONS : Osteomyelitis. CONTRAST: 16 cc Omniscan (gadodiamide) IV MEDICAL HISTORY : Carcinoma, prostate. Diabetes mellitus type 2. Myelodysplastic disease SURGICAL HISTORY : CABG Abdominal aortic aneurysm repair. Prostate cancer sx. ENCOUNTER: Initial ACUITY: 1 week PAIN SCORE: 8/10 LOCATION: Left knee TECHNIQUE: Multiplanar multisequence MRI examination of the knee was performed with and without contrast. FINDINGS: CRUCIATE LIGAMENTS: ACL and PCL are intact. MENISCI: Medial and lateral menisci are intact. COLLATERAL LIGAMENTS: MCL and LCL complexes are intact. BONE/CARTILAGE: Bone marrow signal is within normal limits. Articular cartilage signal is within normal limits. MISCELLANEOUS: There is a moderate size joint effusion. Severe diffuse subcutaneous edema is present and there is mi ld muscular edema in the distal hamstring muscles and proximal aspect of the gastrocnemius muscles. E xtensor mechanism is intact. POST-CONTRAST: There are no abnormal areas of enhancement on the post-contrast images. CONCLUSION: 1. No abscess or findings to indicate osteomyelitis are present. 2. Moderate size joint effusion. 3. Nonspecific diffuse subcutaneous edema and mild muscular edema. Horacio Silver MD on July 26, 2016 at 20:38 Board Certified Radiologist. This report was verified electronically.
[2016-07-26 21:00] VITALS: BP 114/67; PULSE 65; RESP 16; TEMP 96.7; O2SAT 96
[2016-07-26] MEDS: INSULIN ASPART SUPPLEMENTAL SCALE SQ SCH (21:00)
[2016-07-26] MEDS: DOCUSATE SODIUM 50 MG/SENNA 8.6 MG TAB PO SCH (23:01)
[2016-07-26] MEDS: SODIUM CHLORIDE 0.9% FLUSH 10 ML FLUSH IV FLUSH SCH (23:02)
[2016-07-26] MEDS: TIMOLOL MALEATE 0.5% OPHT SOLN 5 ML BTL EACH EYE SCH (23:52)
[2016-07-26] MEDS: LATANOPROST 0.005% OPHT SOLN 2.5 ML BTL EACH EYE SCH (23:52)
[2016-07-27] VITALS (10 sets, daily range): BP systolic 80–144; BP diastolic 43–72; PULSE 60–73; RESP 16–20; TEMP 96.1–97.8; O2SAT 38–96
[2016-07-27] MEDS: INSULIN ASPART SUPPLEMENTAL SCALE SQ SCH ×4 (06:09→21:00)
[2016-07-27 07:22] LABS: HEMATOCRIT 22.8 % (39.0-51.0); MEAN CELL VOLUME 97.2 FL (80.0-100.0); MEAN CORPUSCULAR HEMOGLOBIN 31.8 PG (27.0-34.0); MEAN CORPUSCULAR HGB CONC 32.7 % (32.0-36.0); PLATELET COUNT 40 TH/MM3 (150-450); RED BLOOD COUNT 2.34 MIL/MM3 (4.50-5.90); RED CELL DISTRIBUTION WIDTH 20.8 % (11.6-17.2)
[2016-07-27 07:33] LABS: HEMO FLAGS AUTO DIFF
[2016-07-27 07:40] LABS: BICARBONATE 29.4 MEQ/L (21.0-32.0)
[2016-07-27] MEDS: SODIUM CHLORIDE 0.9% FLUSH 10 ML FLUSH IV FLUSH SCH ×2 (08:37→22:09)
[2016-07-27] MEDS: DOCUSATE SODIUM 50 MG/SENNA 8.6 MG TAB PO SCH ×2 (08:37→21:00)
[2016-07-27] MEDS: ASPIRIN EC 81 MG TABEC PO SCH (08:37)
[2016-07-27 09:42] LABS: BANDS 1 % (0-6); CORRECTED NUCLEATED RBC 26 /100 WBC (0-0); EOSINOPHILS 1 % (0-4); NEUTROPHIL # MANUAL DIFF 1.6 TH/MM3 (1.8-7.7); PLATELET ESTIMATE SMEAR LOW (NORMAL); POLYS (SEG NEUTROPHILS) 78 % (16-70); SCAN/DIFF FINAL DIFF MANUAL; WBC DIFF SAMPLE 100
--- NOTE | 2016-07-27 09:50 | HHI.PR ---
Subjective Remarks Patient reports he is feeling well. He has minimal pain on the left knee. He is able to bend it without significant discomfort. No fevers or chills. Objective Vitals Vital Signs Date Time Temp Pulse Resp B/P Pulse Ox O2 Delivery O2 Flow Rate FiO2 07/27/16 08:53 Nasal Cannula 2.00 07/27/16 08:00 96.3 73 20 144/72 93 07/27/16 03:40 64 16 92/56 38 07/27/16 03:31 97.2 64 20 80/43 96 07/27/16 03:12 96.8 66 20 93/52 94 07/27/16 00:00 96.7 67 16 107/59 93 07/26/16 23:37 96 Nasal Cannula 3.00 07/26/16 21:00 96.7 65 16 114/67 96 07/26/16 15:22 68 18 137/65 97 Room Air 07/26/16 13:18 74 19 07/26/16 11:39 97.8 84 15 104/54 99 I/O 07/26/16 07/26/16 07/26/16 07/27/16 07/27/16 07/27/16 07:00 15:00 23:00 07:00 15:00 23:00 Intake Total 720 ml Output Total 800 ml Balance -80 ml Intake Oral 720 ml Output Urine Total 800 ml Result Diagram: 07/27/16 0641 07/27/16 0641 Imaging Last Impressions Knee X-Ray 07/26/16 0000 Signed Impressions: Service Date/Time: Tuesday, July 26, 2016 13:07 - CONCLUSION: 1. Negative for an acute process. 2. If patient remains symptomatic complete series is suggested. Vladimir Maldonado MD FACR Knee MRI 07/26/16 0000 Signed Impressions: Service Date/Time: Tuesday, July 26, 2016 19:27 - CONCLUSION: 1. No abscess or findings to indicate osteomyelitis are present. 2. Moderate size joint effusion. 3. Nonspecific diffuse subcutaneous edema and mild muscular edema. Horacio Silver MD Foot X-Ray 07/26/16 0000 Signed Impressions: Service Date/Time: Tuesday, July 26, 2016 13:09 - CONCLUSION: 1. Degenerative changes. No acute abnormality identified. Nacho Maldonado MD Objective Remarks GENERAL: This is a well-nourished, well-developed patient, in no apparent distress. CARDIOVASCULAR: Normal rate and regular rhythm without murmurs, gallops, or rubs. RESPIRATORY: Good respiratory efforts. Breath sounds equal and clear to auscultation bilaterally. GASTROINTESTINAL: Abdomen soft, non-tender, non-distended. Normal active bowel sounds MUSCULOSKELETAL: Anterior left knee has a circumscribed area of erythema. There is no evidence of extension or surrounding cellulitis. Range of motion on the left knee is normal with minimal discomfort. There is no open wound or drainage. NEURO: Alert & Oriented x4 to person, place, time, situation. Moves all ext x4 PSYCH: Appropriate mood and affect. A/P Problem List: (1) Infected abrasion of left knee ICD Code: S80.212A Status: Acute (2) Symptomatic anemia ICD Code: D64.9 Status: Acute (3) Generalized weakness ICD Code: R53.1 Status: Acute Assessment and Plan 76-year-old male with history of myelodysplastic syndrome undergoing chemotherapy, diabetes mellitus, CAD s/p CABG, pleural effusions s/p thoracentesis, COPD, O2 dependent, AAA s/p repair, carotid stenosis s/p CEA, presents with a 1 week history of left knee wound, concerned for infection. Left Knee pain/abrasion: initial concern for cellulitis. S/p fall 1 week ago. On exam today there appears to be a hematoma at the site of impact from the fall but no obvious signs of infection. S/p IV Clinda in the ER. Hold off on antibiotics MRI did show a moderate effusion. However he has good range of motion in minimal pain. Discuss with Dr. Tilley. We'll continue supportive care. Physical therapy. Patient will receive another unit of PRBC for anemia. Will re-eval tomorrow and if he remains stable will discharge home. Of course if there is any signs of infection, will have a low threshold to start antibiotics. Acute on Chronic Symptomatic Anemia: patient with weakness/fatigue/dyspnea. Hgb 7.0. -transfuse 1 more unit of PRBC -monitor CBC -Discussed with Dr. Tilley. Oncologist. Myelodysplastic Syndrome: acute, undergoing chemotherapy with Vidaza. -consult patient's oncologist Dr. Tilley Pancytopenia w/Neutropenia/Thrombocytopenia: Suspect secondary to myelodysplasia and recent chemotherapy. No current fever. Oncologist, Dr. Tilley will follow. Diabetes Mellitus: chronic, stable -monitor accu-cheks and cover with SSI Generalized Weakness/Fatigue/Dyspnea: suspect multifactorial, undergoing chemotherapy, with anemia, chronic deconditioning, advanced COPD. -treat underlying etiologies -consult PT -add Ensure tid to each meal -B-12 and TSH okay. COPD, O2 Dependent: chronic. -continue O2 as needed -duonebs prn SOB/wheezing CAD s/p CABG, AAA s/p repair, Carotid Stenosis s/p CEA: chronic. Mathematical Statistician is Dr. Ritter. Vascular surgeon is Dr. Cintron. -continue patient's aspirin DVT Prophylaxis: SCDs Discharge Planning Probable DC tomorrow if he continues to do well and blood count stable. Peter Dey MD Jul 27, 2016 09:50
[2016-07-27] MEDS: TIMOLOL MALEATE 0.5% OPHT SOLN 5 ML BTL EACH EYE SCH ×2 (09:52→22:10)
[2016-07-27] MEDS: LATANOPROST 0.005% OPHT SOLN 2.5 ML BTL EACH EYE SCH (21:00)
--- NOTE | 2016-07-27 22:32 | MB ---
cc: NU DANIELS M.D. DATE OF CONSULTATION: 07/27/2016 REASON FOR CONSULTATION: Fall resulting in injury to the left knee Myelodysplastic syndrome with anemia Thrombocytopenia Neutropenia. PATIENT PROFILE: The patient is a 76 year-old male. He is . He has four children. He lives with his . He also has his 's father at home who is in his 90s and a son who was injured in an automobile accident and has chronic back and neck pain. He has a longstanding history of smoking, a pack of cigarettes per day for 50 years. He was born in [place], [place]. 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 There is no history of excessive alcohol intake. HISTORY OF PRESENT ILLNESS The patient is a 76-year-old male who was found to have pancytopenia on April 22, 2016, with a hemoglobin of 8.9, white count 3,300, and platelet count of 142,000. He underwent a bone marrow aspirate and biopsy on May 07, 2016 which showed refractory anemia with multi-lineage dysplasia, with increased iron stores. Red cell precursors were decreased and the cytogenetic study showed a normal 46 XY karyotype. I referred him to the [facility] for a second opinion. He saw Dr. Reddy who was in agreement with the use of Vidaza to treat his myelodysplasia. He underwent additional chromosome studies and the karyotype was essentially unremarkable again. He recently started Vidaza which is administered through his port, Tuesday through Tuesday. Approximately a week ago he fell injuring the left knee with removal of skin and the area has been red. He presented to the emergency room on 07/26 with the area being erythematous and the central area there was scab. He also has a small ulcer on the left medial big toe. He was hospitalized as there were concerns that he might have a deeper infection. On 07/26/2016, he underwent an x-ray of the foot showing degenerative changes, no evidence of osteomyelitis. He had an MRI of the knee on the same day. There was no abscess or findings to indicate osteomyelitis. There was a moderate sized joint effusion. He has tenderness but the tenderness is limited to the skin where there is a mild soft tissue injury. He has had no fevers. His has administered the area and apparently the erythema and pain have lessened. LABORATORY DATA: He had laboratory studies on 07/26 hemoglobin 7, white count 2500, platelets of 62,000. He has 43 nucleated red cells, total neutrophil count is 1600. He was given a unit of packed cells the following day which today hemoglobin is 7.4, white count 2000, platelets 40,000. Total neutrophil count is 1600, sedimentation rate is greater than 140. His physician, Dr. Dey, contacted me about the hemoglobin and I suggested that he receive another unit of packed cells and then following this, he can be discharged. PAST SURGICAL HISTORY 1. Multiple thoracenteses for pleural effusion. 2. Tonsillectomy. 3. Endovascular aneurysm repair in 2016 for infrarenal abdominal aortic aneurysm. 4. Coronary artery bypass grafting in 2009. 5. Left carotid endarterectomy x2. 6. Right carotid endarterectomy. 7. Radioactive seed implantation of the prostate in 2002 for prostate cancer. PAST MEDICAL HISTORY: 1. Mild dysplasia currently receiving Vidaza. 2. Type 2 diabetes. 3. Gout. 4. Hypothyroidism. 5. Renal stones. 6. Peripheral vascular disease. 7. Prostate cancer dating back to 2002. ALLERGIES: NONE. MEDICATIONS: Prior to admission. 1. Aspirin 2. Doxycycline 3. Levothyroxine 4. Oxygen. 5. Timolol eye drops. 6. Ambien. FAMILY HISTORY Noncontributory. REVIEW OF SYSTEMS Notable for slight decrease in hearing, generalized weakness, exertional shortness of breath, muscle loss, arthritis, pain over the left knee where he fell and has the abrasion. PHYSICAL EXAMINATION: Physical examination reveals a frail individual, blood pressure 120/70, respiratory rate 20, pulse 70 afebrile. O2 sat is 94%. Head: Head is normocephalic. Sclera and conjunctiva normal. Oropharynx unremarkable. No adenopathy. Heart: Regular rhythm. Lungs: Slightly decreased sounds at the bases. Abdomen: Without splenomegaly. Extremities: Trace edema. There is excoriation skin with erythema but no increased warmth beneath the left knee. There does not appear to be a cellulitis. I took a pen and darron a line around the perimeter of the area of erythema. ASSESSMENT/PLAN 1. Myelodysplasia. He will receive a unit of packed cells today and then he can go home tomorrow. He will continue Vidaza every 4 weeks. His CBC and platelet counts are being monitored. 2. I told him that if the area of erythema were to enlarge or he was to have drainage, then he needs to contact his primary care doctor or contact me for antibiotics. In the meantime, he will continue local care with soap, water and Neosporin ointment and cover the area with a wrapping or bandage. MD YURY Hutson/DANNY /7:50 PM /10:12 PM MTDChristine
[2016-07-28] VITALS: BP 141/72; PULSE 86; RESP 17; TEMP 97.4; O2SAT 93
[2016-07-28 04:00] VITALS: BP 125/72; PULSE 75; RESP 18; TEMP 97.5; O2SAT 92
[2016-07-28] MEDS: INSULIN ASPART SUPPLEMENTAL SCALE SQ SCH ×2 (04:56→11:00)
[2016-07-28 05:47] LABS: HEMATOCRIT 26.7 % (39.0-51.0); MEAN CELL VOLUME 95.2 FL (80.0-100.0); MEAN CORPUSCULAR HEMOGLOBIN 32.6 PG (27.0-34.0); MEAN CORPUSCULAR HGB CONC 34.3 % (32.0-36.0); PLATELET COUNT 43 TH/MM3 (150-450); RED BLOOD COUNT 2.81 MIL/MM3 (4.50-5.90); RED CELL DISTRIBUTION WIDTH 20.2 % (11.6-17.2); WHITE BLOOD COUNT 3.6 TH/MM3 (4.0-11.0)
[2016-07-28 05:49] LABS: REVIEW FLAG FINAL
[2016-07-28 05:52] LABS: BICARBONATE 28.3 MEQ/L (21.0-32.0); POTASSIUM 4.1 MEQ/L (3.5-5.1)
[2016-07-28 08:00] VITALS: BP 121/59; PULSE 83; RESP 22; TEMP 97.5; O2SAT 88
--- NOTE | 2016-07-28 08:57 | HHI.DS ---
Discharge Summary Admission Date Jul 26, 2016 at 16:42 Discharge Date: Jul 28, 2016 Admitting Diagnosis Symptomatic anemia and r/o osteomyelitis (1) Infected abrasion of left knee ICD Code: S80.212A (2) Symptomatic anemia ICD Code: D64.9 (3) Generalized weakness ICD Code: R53.1 Procedures None Brief History - From Admission History of present illness from the admitting physician 76-year-old male with history of myelodysplastic syndrome undergoing chemotherapy, diabetes mellitus, CAD s/p CABG, pleural effusions s/p thoracentesis, COPD, O2 dependent, AAA s/p repair, carotid stenosis s/p CEA, presents with a 1 week history of left knee wound, concerned for infection. The patient's is at bedside who assists with the history. She reports the patient fell in a parking lot 1 week ago and injured his left knee. She states initially the knee just had an abrasion. She has been putting Neosporin on the wound however last night she took the bandage off and the wound was much more edematous and erythematous. She did notice a small amount of pus from the wound this morning. Denies any fevers/chills. The patient is currently undergoing chemotherapy with Vidaza for his MDS, last treatment last week. He sees oncologist Dr. Tilley. The patient did have some nausea and vomiting this past Sunday 07/23. The patient reports over the past month he has felt very fatigued and weak, worse with any minimal exertion. Denies any chest pain. He has shortness of breath at baseline with his COPD. His braiding operator is Dr. Ramirez. His business analytics director is Dr. Ritter. His vascular surgeon is Dr. Cintron. CBC/BMP: 07/28/16 0521 07/28/16 0521 Significant Findings Laboratory Tests Test 07/26/16 07/27/16 07/28/16 13:06 06:41 05:21 White Blood Count 2.5 TH/MM3 2.0 TH/MM3 3.6 TH/MM3 (4.0-11.0) (4.0-11.0) (4.0-11.0) Red Blood Count 2.15 MIL/MM3 2.34 MIL/MM3 2.81 MIL/MM3 (4.50-5.90) (4.50-5.90) (4.50-5.90) Hemoglobin 7.0 GM/DL 7.4 GM/DL 9.2 GM/DL (13.0-17.0) (13.0-17.0) (13.0-17.0) Hematocrit 21.1 % 22.8 % 26.7 % (39.0-51.0) (39.0-51.0) (39.0-51.0) Red Cell Distribution Width 21.9 % 20.8 % 20.2 % (11.6-17.2) (11.6-17.2) (11.6-17.2) Platelet Count 62 TH/MM3 40 TH/MM3 43 TH/MM3 (150-450) (150-450) (150-450) Mean Platelet Volume 11.4 FL (7.0-11.0) Monocytes (%) (Auto) 26.2 % (0.0-8.0) Neutrophils # (Auto) 1.3 TH/MM3 (1.8-7.7) Lymphocytes # (Auto) 0.5 TH/MM3 (1.0-4.8) Monocytes % 10 % (0-8) Neutrophils # (Manual) 1.6 TH/MM3 1.6 TH/MM3 (1.8-7.7) (1.8-7.7) Nucleated Red Blood Cells 43 /100 WBC 26 /100 WBC (0-0) (0-0) Platelet Estimate LOW (NORMAL) LOW (NORMAL) Platelet Morphology Comment ENLARGED (NORMAL) Erythrocyte Sedimentation Rate GREATER THAN 140 mm/hr (0-20) Blood Urea Nitrogen 34 MG/DL (7-18) 34 MG/DL (7-18) 31 MG/DL (7-18) Estimat Glomerular Filtration 69 ML/MIN (>89) 62 ML/MIN (>89) 76 ML/MIN (>89) Rate Random Glucose 175 MG/DL 194 MG/DL 148 MG/DL (74-106) (74-106) (74-106) C-Reactive Protein 7.83 MG/DL (0.00-0.30) Vitamin B12 Level 1665 PG/ML (193-986) Neutrophils % (Manual) 78 % (16-70) PE at Discharge GENERAL: This is a well-nourished, well-developed patient, in no apparent distress. CARDIOVASCULAR: Normal rate and regular rhythm without murmurs, gallops, or rubs. RESPIRATORY: Good respiratory efforts. Breath sounds equal and clear to auscultation bilaterally. GASTROINTESTINAL: Abdomen soft, non-tender, non-distended. Normal active bowel sounds MUSCULOSKELETAL: Anterior left knee has a circumscribed area of erythema, decreased in size compared to yesterday. There is no evidence of extension or surrounding cellulitis. Range of motion on the left knee is normal with minimal discomfort. There is no open wound or drainage. NEURO: Alert & Oriented x4 to person, place, time, situation. Moves all ext x4 PSYCH: Appropriate mood and affect. Pt update on day of discharge Patient reports he is feeling great. He wants to go home. Minimal pain on the left knee. Very good range of motion. He is ambulating without any issues. Hospital Course 76-year-old male with history of myelodysplastic syndrome undergoing chemotherapy, diabetes mellitus, CAD s/p CABG, pleural effusions s/p thoracentesis, COPD, O2 dependent, AAA s/p repair, carotid stenosis s/p CEA, presents with a 1 week history of left knee wound, concerned for infection. Evaluation and treatment course detailed below: Left Knee pain/abrasion: initial concern for cellulitis. S/p fall 1 week ago. On exam there appears to be a hematoma at the site of impact from the fall but no obvious signs of infection. Repeat exam the next day showed continuing improvement. S/p IV Clinda in the ER. Hold off on antibiotics MRI did show a moderate effusion. However he has good range of motion in minimal pain. Discuss with Dr. Tilley. Patient is improving. Exam reassuring today. No antibiotics indicated at this point. We discussed signs of infections at length and when to call his primary care physician or Dr. Tilley. He understand there is a low threshold to start him on antibiotics if he does not continue to improve. Acute on Chronic Symptomatic Anemia: with weakness/fatigue/dyspnea. Hgb 7.0. On presentation. Status post 2 units of PRBC. H&H improves. Patient symptoms significantly improved. He will follow-up outpatient with Dr. Tilley. Myelodysplastic Syndrome: acute, undergoing chemotherapy with Vidaza. -Outpatient follow-up with oncologist Dr. Tilley Pancytopenia w/Neutropenia/Thrombocytopenia: Suspect secondary to myelodysplasia and recent chemotherapy. No current fever. Oncologist, Dr. Tilley followed the patient. Diabetes Mellitus: chronic, stable -monitor accu-cheks and cover with SSI Generalized Weakness/Fatigue/Dyspnea: suspect multifactorial, undergoing chemotherapy, with anemia, chronic deconditioning, advanced COPD. -treat underlying etiologies -Ensure tid to each meal -B-12 and TSH okay. COPD, O2 Dependent: chronic. -continue O2 as needed -duonebs prn SOB/wheezing CAD s/p CABG, AAA s/p repair, Carotid Stenosis s/p CEA: chronic. Gas Check Pad Maker is Dr. Ritter. Vascular surgeon is Dr. Cintron. -continue patient's aspirin Pt Condition on Discharge: Good Discharge Disposition: Discharge Home Discharge Time: <= 30 minutes Discharge Instructions DIET: Follow Instructions for: Heart Healthy Diet Activities you can perform: Regular-No Restrictions Follow up Referrals: Oncology with Cm Tilley MD PCP Follow-up - 1 Week Continued Medications: Aspirin DR (Aspirin Adult Low Strength) 81 Mg Tabdr 81 MG PO DAILY TAB Latanoprost Opth Drops (Latanoprost Opth Drops) 0.005% Drops 1 DROP EACH EYE HS Refrigerate until opened. Glaucoma #2.5 Ref 0 ML Levothyroxine (Levothyroxine) 25 Mcg Tab 25 MCG PO MOWEFR Take 1 tablet (25mcg) daily on Tuesday,Tuesday and Tuesday Thyroid #30 Ref 0 TAB Timolol Opth Drops (Timolol Opth Drops) 0.5 % Soln 1 DROP EACH EYE BID Glaucoma #1 Ref 0 BOTTLE Zolpidem (Zolpidem) 5 Mg Tab 5 MG PO HS PRN INSOMNIA Ref 0 TAB Discontinued Medications: Doxycycline Hyclate (Doxycycline Hyclate) 50 Mg Cap 50 MG PO DAILY Infection #30 Ref 0 CAP Peter Dey MD Jul 28, 2016 08:57
--- NOTE | 2016-07-28 08:58 | HHI.DCPOC ---
Discharge Care Plan Diagnosis: (1) Symptomatic anemia (2) Abrasion, knee (3) Generalized weakness Goals to Promote Your Health * To prevent worsening of your condition and complications * To maintain your health at the optimal level Directions to Meet Your Goals Take your medications as prescribed Follow your dietary instruction Follow activity as directed Keep your appointments as scheduled Take your immunizations and boosters as scheduled If your symptoms worsen call your PCP, if no PCP go to Urgent Care Center or Emergency Room Smoking is Dangerous to Your Health. Avoid second hand smoke Call the 24-hour hour crisis hotline for domestic abuse at Peter Dey MD Jul 28, 2016 08:58
[2016-07-28] MEDS: DOCUSATE SODIUM 50 MG/SENNA 8.6 MG TAB PO SCH (09:18)
[2016-07-28] MEDS: TIMOLOL MALEATE 0.5% OPHT SOLN 5 ML BTL EACH EYE SCH (09:18)
[2016-07-28] MEDS: ASPIRIN EC 81 MG TABEC PO SCH (09:18)
[2016-07-28] MEDS: SODIUM CHLORIDE 0.9% FLUSH 10 ML FLUSH IV FLUSH SCH (09:18)
== END 2016-07-28 11:57 | disposition home or self-care (01) | DRG 604 ==
LOC: NEPC 11:37 → NEDA 16:42 → HOCA 20:40
PROVIDERS: ADMIT Family Medicine; ATTEND Family Medicine
PROC: 30233N1 Transfusion of Nonautologous Red Blood Cells into Peripheral Vein, Percutaneous Approach (ICD-10-PCS; principal; 2016-07-27)
DX: S80.212A Abrasion, left knee, initial encounter (principal); D61.810 Antineoplastic chemotherapy induced pancytopenia; E11.42 Type 2 diabetes mellitus with diabetic polyneuropathy; E11.51 Type 2 diabetes mellitus with diabetic peripheral angiopathy without gangrene; Z99.81 Dependence on supplemental oxygen; I48.91 Unspecified atrial fibrillation; D46.9 Myelodysplastic syndrome, unspecified; J44.9 Chronic obstructive pulmonary disease, unspecified; R53.1 Weakness; E03.9 Hypothyroidism, unspecified; H40.9 Unspecified glaucoma; I25.10 Atherosclerotic heart disease of native coronary artery without angina pectoris; M10.9 Gout, unspecified; I10 Essential (primary) hypertension; E78.00 Pure hypercholesterolemia, unspecified; H91.90 Unspecified hearing loss, unspecified ear; M25.462 Effusion, left knee; Y93.01 Activity, walking, marching and hiking; W01.0XXA Fall on same level from slipping, tripping and stumbling without subsequent striking against object, initial encounter; Z92.21 Personal history of antineoplastic chemotherapy; Z92.3 Personal history of irradiation; Z95.5 Presence of coronary angioplasty implant and graft; Z95.1 Presence of aortocoronary bypass graft; Z85.46 Personal history of malignant neoplasm of prostate; Z87.891 Personal history of nicotine dependence; Z79.82 Long term (current) use of aspirin; Y92.481 Parking lot as the place of occurrence of the external cause; Y99.8 Other external cause status; Z87.442 Personal history of urinary calculi
CPT/HCPCS: 36430; 73560; 73620; 73723; 80048; 82607; 82948; 84443; 85007; 85027; 85652; 86140; 86850; 86900; 86901; 86920; 96374; A9579; J1815; J1940; P9040

== ENCOUNTER 2016-09-08 10:21 | Inpatient (IN) | payer OTHER, MEDICARE ==
[~2016-09-08] VITALS: Ht 185.4 cm; Wt 93.3 kg
[2016-09-08] VITALS (8 sets, daily range): BP systolic 96–109; BP diastolic 56–67; PULSE 78–87; RESP 16–18; TEMP 96.9–97.8; O2SAT 92–97
[~2016-09-08 10:21] MED LIST changes: -AMOX875T2 PO; +ASPI1TAB91 PO; -DOXY50 PO; -PRED10 PO
--- NOTE | 2016-09-08 10:39 | PD ---
Physical Exam Time Seen by Provider: 10:35 Narrative 76yo M c/o BLE edema, abd edema for "awhile." Visitor w/ patient concerned of CHF. +left sided chest pain and SOB fro awhile also. Denies cough or sputum production. Last chemo 3 weeks ago. Patient seen in triage. VS reviewed. Patient awaiting medical bed. Data Data Last Documented VS Vital Signs Date Time Temp Pulse Resp B/P Pulse Ox O2 Delivery O2 Flow Rate FiO2 09/08/16 10:24 97.8 87 16 109/58 94 MDM Supervised Visit with BLAZE: Georgia Edgar Sep 08, 2016 10:39
[2016-09-08 11:44] LABS: INTERNATIONAL NORMALIZED RATIO 1.2 RATIO; PROTHROMBIN TIME - PATIENT 13.4 SEC (9.8-11.6)
[2016-09-08 11:46] LABS: HEMATOCRIT 28.2 % (39.0-51.0); MEAN CELL VOLUME 96.2 FL (80.0-100.0); MEAN CORPUSCULAR HEMOGLOBIN 31.7 PG (27.0-34.0); PLATELET COUNT 75 TH/MM3 (150-450); RED BLOOD COUNT 2.93 MIL/MM3 (4.50-5.90); RED CELL DISTRIBUTION WIDTH 16.4 % (11.6-17.2); WHITE BLOOD COUNT 2.7 TH/MM3 (4.0-11.0)
[2016-09-08 11:48] LABS: HEMO FLAGS AUTO DIFF
[2016-09-08 12:09] LABS: POTASSIUM 4.8 MEQ/L (3.5-5.1)
[2016-09-08 12:36] LABS: BANDS 1 % (0-6); CORRECTED NUCLEATED RBC 82 /100 WBC (0-0); NEUTROPHIL # MANUAL DIFF 2.5 TH/MM3 (1.8-7.7); POLYS (SEG NEUTROPHILS) 92 % (16-70); WBC DIFF SAMPLE 100
[2016-09-08 12:37] LABS: OVALOCYTES 1+ (NORMAL)
[2016-09-08 12:39] LABS: PLATELET ESTIMATE SMEAR LOW (NORMAL)
[2016-09-08 12:40] LABS: PLATELET MORPHOLOGY NORMAL (NORMAL); SCAN/DIFF FINAL DIFF MANUAL; TOXIC GRANULATION 1+ (NORMAL)
--- NOTE | 2016-09-08 14:10 | PD ---
HPI Chief Complaint: Cardiac Complaint Time Seen by Provider: 14:08 Travel History International Travel<30 days: No Contact w/Intl Traveler<30days: No Traveled to known affect area: No History of Present Illness HPI 76 YO M with PMH of A. fib, CHF, DM, HTN, PAD, myelodysplasia presents the ED for evaluation of an episode of near-syncope this a.m. Patient states that he was attempting to get out of bed when he became very weak and dizzy. He states that this weakness has been ongoing for the last few weeks. Endorses increased edema over the same period of time. He endorses weakness in the bilateral lower extremities which he attributes to his increasing edema. He denies headache, fever, chills, nausea, chest pain, abdominal pain, nausea, vomiting, dysuria. He is followed by Dr. Tilley, oncology and Dr. Morales Sutherland primary care. PFSH Past Medical History Arthritis: Yes Asthma: No Autoimmune Disease: No Blood Disorders: No Heart Rhythm Problems: Yes (a-fib) Cancer: Yes (prostate, mds) Cardiovascular Problems: Yes (CHF) High Cholesterol: Yes Chemotherapy: Yes (08/23) Chest Pain: No Congestive Heart Failure: No COPD: No Cerebrovascular Accident: No Diabetes: Yes Diminished Hearing: Yes Endocrine: No Gastrointestinal Disorders: No GERD: No Glaucoma: Yes Genitourinary: No Headaches: Yes Hiatal Hernia: No Hypertension: Yes Immune Disorder: No Implanted Vascular Access Dvce: Yes Kidney Stones: Yes Musculoskeletal: No Neurologic: No Psychiatric: No Reproductive: No Respiratory: Yes Immunizations Current: Yes Migraines: No Myocardial Infarction: No Radiation Therapy: Yes Renal Failure: No Seizures: No Sickle Cell Disease: No Sleep Apnea: No Thyroid Disease: Yes (hypothyroidism) Ulcer: No Past Surgical History Abdominal Surgery: Yes AICD: No Arteriovenous Shunt: No Body Medical Devices: STENT CARDIAC Cardiac Surgery: Yes (cabg x 4 2009, carotid) Ear Surgery: No Endocrine Surgery: No Eye Surgery: No Genitourinary Surgery: No Gynecologic Surgery: No Insulin Pump: No Joint Replacement: No Oral Surgery: No Pacemaker: No Thoracic Surgery: Yes (aaa repair 2016) Other Surgery: Yes Social History Alcohol Use: No Tobacco Use: Yes ( quit a week ago, was smoking 1ppd for 50 yrs) Substance Use: No Allergies-Medications (Allergen,Severity, Reaction): Coded Allergies: No Known Allergies (Verified , 07/26/16) Reported Meds & Prescriptions Reported Meds & Active Scripts Active Reported Crestor (Rosuvastatin Calcium) 20 Mg Tab 20 Mg PO DAILY Aspirin Adult Low Strength (Aspirin) 81 Mg Tabdr 81 Mg PO DAILY Oxygen tank (Oxygen) 1 Ea Tank 2 Liter DANNY.CANULA CONTINUOUS Oxygen Concentrator Portable Gaseous 2 L/min via Nasal Cannula Continuous For 99 months Latanoprost Opth Drops (Latanoprost) 0.005% Drops 1 Drop EACH EYE HS Refrigerate until opened. Timolol Opth Drops 0.5 % Soln 1 Drop EACH EYE BID Zolpidem (Zolpidem Tartrate) 5 Mg Tab 5 Mg PO HS PRN Review of Systems Except as stated in HPI: all other systems reviewed are Neg Physical Exam Narrative GENERAL: Thin, dusky, ill appearing white male in no acute distress. SKIN: Focused skin assessment warm/dry. Circumoral paleness HEAD: Normocephalic. EYES: No scleral icterus. No injection or drainage. NECK: Supple, trachea midline. No JVD or lymphadenopathy. CARDIOVASCULAR: Regular rate and rhythm without murmurs, gallops, or rubs. RESPIRATORY: Breath sounds clear equal bilaterally. No accessory muscle use. GASTROINTESTINAL: Abdomen soft, non-tender, nondistended. MUSCULOSKELETAL: No cyanosis. Marked pitting edema to the mid thighs bilaterally. NEUROLOGICAL: Awake and alert. Cranial nerves II through XII intact. Motor and sensory grossly within normal limits. 2/5 strength in the bilateral lower extremities. Normal speech. BACK: Nontender without obvious deformity. No CVA tenderness. Data Data Last Documented VS Vital Signs Date Time Temp Pulse Resp B/P Pulse Ox O2 Delivery O2 Flow Rate FiO2 09/08/16 14:32 92 Room Air 09/08/16 14:18 85 16 96/56 09/08/16 10:24 97.8 Orders Complete Blood Count With Diff (09/08/16 10:38) Prothrombin Time / Inr (Pt) (09/08/16 10:38) Basic Metabolic Panel (Bmp) (09/08/16 10:38) Electrocardiogram (09/08/16 ) Urinalysis - C+S If Indicated (09/08/16 10:39) B-Type Natriuretic Peptide (09/08/16 14:24) Ckmb (Isoenzyme) Profile (09/08/16 14:24) Troponin I (09/08/16 14:24) Chest, Single Ap (09/08/16 14:24) Ct Brain W/O Iv Contrast(Rout) (09/08/16 14:24) Ecg Monitoring (09/08/16 14:24) Iv Access Insert/Monitor (09/08/16 14:24) Oximetry (09/08/16 14:24) Sodium Chloride 0.9% Flush (Ns Flush) (09/08/16 14:30) Sodium Chlor 0.9% 1000 Ml Inj (Ns 1000 M (09/08/16 14:24) Furosemide Inj (Lasix Inj) (09/08/16 14:45) Diet Heart Healthy (09/08/16 Dinner) Vital Signs (Adult) MEREDITH.Q4H (09/08/16 16:39) Consult Pt Eval & Treat (09/08/16 16:39) Resp Oxygen Danny C Titrat 1-4 L (09/08/16 ) Echo 2d Comp With Doppler (09/08/16 ) Basic Metabolic Panel (Bmp) (09/09/16 06:00) Intake + Output 06,14,22 (09/08/16 16:39) Admit Order (Ed Use Only) (09/08/16 16:42) Labs Laboratory Tests Test 09/08/16 09/08/16 10:55 14:40 White Blood Count 2.7 TH/MM3 Red Blood Count 2.93 MIL/MM3 Hemoglobin 9.3 GM/DL Hematocrit 28.2 % Mean Corpuscular Volume 96.2 FL Mean Corpuscular Hemoglobin 31.7 PG Mean Corpuscular Hemoglobin 33.0 % Concent Red Cell Distribution Width 16.4 % Platelet Count 75 TH/MM3 Mean Platelet Volume 9.7 FL Neutrophils (%) (Auto) % Lymphocytes (%) (Auto) % Monocytes (%) (Auto) % Eosinophils (%) (Auto) % Basophils (%) (Auto) % Neutrophils # (Auto) TH/MM3 Lymphocytes # (Auto) TH/MM3 Monocytes # (Auto) TH/MM3 Eosinophils # (Auto) TH/MM3 Basophils # (Auto) TH/MM3 CBC Comment AUTO DIFF Differential Total Cells 100 Counted Neutrophils % (Manual) 92 % Band Neutrophils % 1 % Lymphocytes % 5 % Monocytes % 2 % Neutrophils # (Manual) 2.5 TH/MM3 Nucleated Red Blood Cells 82 /100 WBC Differential Comment FINAL DIFF MANUAL Toxic Granulation 1+ Platelet Estimate LOW Platelet Morphology Comment NORMAL Ovalocytes 1+ Prothrombin Time 13.4 SEC Prothromb Time International 1.2 RATIO Ratio Sodium Level 141 MEQ/L Potassium Level 4.8 MEQ/L Chloride Level 108 MEQ/L Carbon Dioxide Level 25.0 MEQ/L Anion Gap 8 MEQ/L Blood Urea Nitrogen 38 MG/DL Creatinine 1.65 MG/DL Estimat Glomerular Filtration 41 ML/MIN Rate Random Glucose 121 MG/DL Calcium Level 8.6 MG/DL B-Type Natriuretic Peptide 905 PG/ML Total Creatine Kinase 37 U/L Troponin I 0.03 NG/ML MDM Medical Decision Making Medical Screen Exam Complete: Yes Emergency Medical Condition: Yes Differential Diagnosis CHF versus pneumonia versus anemia versus CVA versus deconditioning versus other Narrative Course 76 YO M with PMH of A. fib, CHF, DM, HTN, PAD, myelodysplasia presents the ED for evaluation of an episode of near-syncope this a.m. endorses weakness, increased edema and shortness of breath over "the last few weeks. He is followed by Dr. Tilley, oncology and Dr. Morales Sutherland primary care. Patient's afebrile, O2 sats 94% on room air, BP 96/56 on presentation. On physical exam this is a chronically ill appearing white male in no acute distress. He has marked edema in the lower extremities but the physical exam is otherwise unremarkable. The patient was administered gentle fluids and 40 of Lasix. Chest x-ray reveals failure with small bilateral pleural effusions. EKG A. fib , right axis deviation, no acute ST changes. Reviewed by Dr. Bass. BNP 948. I reviewed Dr. Tilley's note 09/04, the need for hospice may be eminent. The patient states that he is "afraid to go home" because of the physical burdens placed on his . He'll be admitted to the medicine service. I spoke to Dr. ramirez who agrees to accept this patient. Please see medicine note for disposition. Ngozi Lamas Sep 08, 2016 14:10
[2016-09-08] MEDS ORDERED: SODIUM CHLOR 0.9% 1000 ML INJ 1,000 ML IV ONE (14:24)
[2016-09-08] MEDS ORDERED: SODIUM CHLORIDE 0.9% FLUSH 10 ML FLUSH IVF PRN (14:30)
[2016-09-08] MEDS ORDERED: FUROSEMIDE 40 MG/4 ML VIAL IV PUSH ONE (14:45)
--- NOTE | 2016-09-08 16:18 | RADRPT ---
EXAM DATE/TIME: 09/08/2016 15:06 [facility] COMPARISON: No previous studies available for comparison. INDICATIONS : Dizziness and generalized weakness. RADIATION DOSE: 48.36 CTDIvol (mGy) MEDICAL HISTORY : Hypertension. Carcinoma, prostate. Diabetes SURGICAL HISTORY : CABG Abdominal aortic aneurysm repair. ENCOUNTER: Initial ACUITY: 1 day PAIN SCALE: 0/10 LOCATION: cranial TECHNIQUE: Multiple contiguous axial images were obtained of the head. Using automated exposure control and adj ustment of the mA and/or kV according to patient size, radiation dose was kept as low as reasonably a chievable to obtain optimal diagnostic quality images. DICOM format image data is available electro nically for review and comparison. FINDINGS: CEREBRUM: The ventricles are normal for age. No evidence of midline shift, mass lesion, hemorrhage or acute in farction. No extra-axial fluid collections are seen. POSTERIOR FOSSA: The cerebellum and brainstem are intact. The 4th ventricle is midline. The cerebellopontine angle i s unremarkable. Moderate vascular calcifications are noted. EXTRACRANIAL: The visualized portion of the orbits is intact. SKULL: The calvaria is intact. No evidence of skull fracture. CONCLUSION: Negative for acute process. Vladimir Maldonado MD FACR on September 08, 2016 at 16:16 Board Certified Radiologist. This report was verified electronically.
--- NOTE | 2016-09-08 16:19 | RADRPT ---
EXAM DATE/TIME: 09/08/2016 15:21 [facility] COMPARISON: CHEST SINGLE AP, July 06, 2016, 14:15. INDICATIONS : Shortness of breath. MEDICAL HISTORY : Carcinoma, prostatic. Hypertension. Chemotherapy. SURGICAL HISTORY : CABG. ENCOUNTER: Initial ACUITY: 2 days PAIN SCORE: 0/10 LOCATION: Bilateral chest FINDINGS: Sternal wires from previous bypass are noted. Support is in good position. The heart is enlarged wi th moderate congestive failure and bilateral small pleural effusions. The portion of the bony skeleto n visualized is unremarkable. CONCLUSION: Congestive failure with small bilateral pleural effusions. Vladimir Maldonado MD FACR on September 08, 2016 at 16:17 Board Certified Radiologist. This report was verified electronically.
[2016-09-08] MEDS ORDERED: ROSU20 PO (17:17)
[2016-09-08] MEDS ORDERED: LOPERAMIDE HCL 2 MG CAP PO ONE (19:15)
--- NOTE | 2016-09-08 21:19 | HHI.HP ---
HPI Service [facility] Primary Care Physician Morales Sutherland MD Admission Diagnosis CHF Diagnoses: Chief Complaint: fatigue, diarrhea, dizziness Travel History International Travel<30 Days: No Contact w/Intl Traveler <30 Da: No Traveled to Known Affected Are: No History of Present Illness Written by HALLEY Vergara acting as scribe for [Verona] on 09/08/16 at 21: 04. 76 y/o male with a history of myelodysplasia on chemo, last dose was 2 weeks ago , prostate cancer, afib, DM, HTN and CAD presented to the ED with complaints of being unable to walk or stand up by himself, swollen lower extremities, fatigue , for the last few weeks and getting worse. He states today when he was going to his PCP he felt dizzy and felt like he was going to pass out, and didn't think he could make so he came to the hospital. He also complains of diarrhea a few times a day, nausea. Denies any fever, chills, chest pain, increased sob, dysuria, bloody stools or vomiting. He denies any CHF or recent antibiotic use. He did receive 2 units of PRBCs [address] Ritter is his hydrometeorologist Julianne Sutherland is his PCP Review of Systems Except as stated in HPI: all other systems reviewed are Neg Past Family Social History Past Medical History Myelodysplasia on chemo, last dose was 2 weeks ago Afib DM, diet controlled HTN, not on medication, currently low BP PAD Carotid artery disease- b/l CEA Prostate cancer- s/p radiation seeds CAD- s/p cabg CHF Pleural effusions Past Surgical History CABG Stents Carotid endarterectomy AAA repair Prostate seeds Thoracentesis Reported Medications Reported Meds & Active Scripts Active Reported Crestor (Rosuvastatin Calcium) 20 Mg Tab 20 Mg PO DAILY Aspirin Adult Low Strength (Aspirin) 81 Mg Tabdr 81 Mg PO DAILY Oxygen tank (Oxygen) 1 Ea Tank 2 Liter DANNY.CANULA CONTINUOUS Oxygen Concentrator Portable Gaseous 2 L/min via Nasal Cannula Continuous For 99 months Latanoprost Opth Drops (Latanoprost) 0.005% Drops 1 Drop EACH EYE HS Refrigerate until opened. Timolol Opth Drops 0.5 % Soln 1 Drop EACH EYE BID Zolpidem (Zolpidem Tartrate) 5 Mg Tab 5 Mg PO HS PRN Allergies: Coded Allergies: No Known Allergies (Verified , 07/26/16) Active Ordered Medications Current Medications Medications (Trade) Dose Ordered Sig/Sadie Route Start Time Stop Time Status Last Admin (NS Flush) 2 ml UNSCH PRN IVF 09/08/16 14:30 Family History Dad: prostate cancer Mom: PVD Social History Tobacco use: Quit in June, not just occasionally, prior 1 PPD for 50 years Alcohol use: Quit 8 months ago Illicit drug use: Denies Physical Exam Vital Signs Vital Signs Date Time Temp Pulse Resp B/P Pulse Ox O2 Delivery O2 Flow Rate FiO2 09/08/16 18:08 82 17 102/66 97 Room Air 09/08/16 16:45 83 18 106/64 94 Room Air 09/08/16 14:32 92 Room Air 09/08/16 14:18 85 16 96/56 95 Room Air 09/08/16 14:09 17 09/08/16 10:24 97.8 87 16 109/58 94 Physical Exam GENERAL: This is a well-nourished, well-developed patient, in no apparent distress. SKIN: No rashes, ecchymoses or lesions. Cool and dry. left great toe ulcer, chronic. HEAD: Atraumatic. Normocephalic. EYES: Pupils equal round and reactive ENT: Nose without bleeding, purulent drainage or septal hematoma.Airway patent. NECK: Trachea midline. No JVD CARDIOVASCULAR: Regular rate and rhythm without murmurs, gallops, or rubs. Ivan weak pedal pulses. RESPIRATORY: Diminished Breath sounds equal bilaterally. No wheezes, rales, or rhonchi. GASTROINTESTINAL: Abdomen soft, non-tender, nondistended. . No guarding. MUSCULOSKELETAL: +3 pedal edema up to mid thigh No calf tenderness. NEUROLOGICAL: Awake and alert. Motor and sensory grossly within normal limits. Normal speech. Laboratory Laboratory Tests Test 09/08/16 09/08/16 10:55 14:40 White Blood Count 2.7 Red Blood Count 2.93 Hemoglobin 9.3 Hematocrit 28.2 Mean Corpuscular Volume 96.2 Mean Corpuscular Hemoglobin 31.7 Mean Corpuscular Hemoglobin 33.0 Concent Red Cell Distribution Width 16.4 Platelet Count 75 Mean Platelet Volume 9.7 Neutrophils (%) (Auto) Lymphocytes (%) (Auto) Monocytes (%) (Auto) Eosinophils (%) (Auto) Basophils (%) (Auto) Neutrophils # (Auto) Lymphocytes # (Auto) Monocytes # (Auto) Eosinophils # (Auto) Basophils # (Auto) CBC Comment AUTO DIFF Differential Total Cells 100 Counted Neutrophils % (Manual) 92 Band Neutrophils % 1 Lymphocytes % 5 Monocytes % 2 Neutrophils # (Manual) 2.5 Nucleated Red Blood Cells 82 Differential Comment FINAL DIFF MANUAL Toxic Granulation 1+ Platelet Estimate LOW Platelet Morphology Comment NORMAL Ovalocytes 1+ Prothrombin Time 13.4 Prothromb Time International 1.2 Ratio Sodium Level 141 Potassium Level 4.8 Chloride Level 108 Carbon Dioxide Level 25.0 Anion Gap 8 Blood Urea Nitrogen 38 Creatinine 1.65 Estimat Glomerular Filtration 41 Rate Random Glucose 121 Calcium Level 8.6 B-Type Natriuretic Peptide 905 Total Creatine Kinase 37 Troponin I 0.03 Result Diagram: 09/08/16 1055 09/08/16 1055 Imaging Last Impressions Head CT 09/08/161423 Signed Impressions: Service Date/Time: Thursday, September 08, 2016 15:06 - CONCLUSION: Negative for acute process. Vladimir Maldonado MD FACR Chest X-Ray 09/08/161423 Signed Impressions: Service Date/Time: Thursday, September 08, 2016 15:21 - CONCLUSION: Congestive failure with small bilateral pleural effusions. Vladimir Maldonado MD FACR Assessment and Plan Problem List: (1) CHF exacerbation ICD Code: I50.9 Status: Acute (2) Ulcer ICD Code: L98.499 Status: Acute (3) Diarrhea ICD Code: R19.7 Status: Acute Assessment and Plan 76 y/o male with a history of myelodysplasia on chemo, last dose was 2 weeks ago , prostate cancer, afib, DM, HTN and CAD presented to the ED with complaints of being unable to walk or stand up by himself, swollen lower extremities, fatigue , for the last few weeks and getting worse. Acute CHF exacerbation, new onset, patient denies any history of CHF - likely this is fluid overload from recent blood transfusion as well. Chest x ray reviewed and shows Congestive failure with small bilateral pleural effusions. EKG shows afib, chronic rate controlled. Troponin .03 -Consult cardiology, pt known to Dr. Ritter -2D echo ordered -Lasix 40 mg IV BID, first dose given in ED. -Trend troponin -Monitor telemetry Diarrhea, loose stools a few times a day for 2 weeks, no recent antibiotic use, likely related to chemotherapy -Check C diff in an immunocompromised patient Left great toe ulcer, chronic, Dr Cintron does not want to do surgery while he is immunocompromised per patient. -Consult wound care for dressing recommendations Myelodysplasia, chronic, currently undergoing chemo -Only consult Dr. Tilley if there is a problem -Cont to monitor DVT prophylaxis: Heparin Discussed Condition With Patient and RN Problem Qualifiers (1) Diarrhea: Qualified Code: R19.7 - Diarrhea, unspecified type Isabel Smart Sep 08, 2016 21:19 Natalia Rhoades MD Sep 09, 2016 02:14
[2016-09-08] MEDS: HEPARIN SODIUM - SQ 10,000 UNITS/ML VIAL SQ SCH (23:37)
[2016-09-09] VITALS (10 sets, daily range): BP systolic 89–118; BP diastolic 56–92; PULSE 85–110; RESP 16–24; TEMP 96–97.6; O2SAT 91–94
[2016-09-09] MEDS: ZOLPIDEM TARTRATE 5 MG TAB PO PRN ×2 (00:30→21:37)
[2016-09-09 05:49] LABS: HEMATOCRIT 25.9 % (39.0-51.0); MEAN CELL VOLUME 96.4 FL (80.0-100.0); MEAN CORPUSCULAR HEMOGLOBIN 31.2 PG (27.0-34.0); MEAN CORPUSCULAR HGB CONC 32.4 % (32.0-36.0); PLATELET COUNT 68 TH/MM3 (150-450); RED BLOOD COUNT 2.68 MIL/MM3 (4.50-5.90); RED CELL DISTRIBUTION WIDTH 16.3 % (11.6-17.2); WHITE BLOOD COUNT 2.2 TH/MM3 (4.0-11.0)
[2016-09-09 05:54] LABS: HEMO FLAGS AUTO DIFF
[2016-09-09 06:10] LABS: BICARBONATE 26.1 MEQ/L (21.0-32.0); POTASSIUM 3.6 MEQ/L (3.5-5.1)
[2016-09-09 06:24] LABS: CALCIUM-PROTEIN CORRECTED 7.8 MG/DL (8.5-10.1)
[2016-09-09 07:22] LABS: BANDS 1 % (0-6); BASOPHILS 1 % (0-2); CORRECTED NUCLEATED RBC 104 /100 WBC (0-0); POLYS (SEG NEUTROPHILS) 88 % (16-70); WBC DIFF SAMPLE 100
[2016-09-09 07:25] LABS: PLATELET ESTIMATE SMEAR LOW (NORMAL); PLATELET MORPHOLOGY ENLARGED (NORMAL); SCAN/DIFF FINAL DIFF MANUAL; TOXIC GRANULATION 1+ (NORMAL)
[2016-09-09] MEDS: TIMOLOL MALEATE 0.5% OPHT SOLN 5 ML BTL EACH EYE SCH ×2 (09:00→21:00)
[2016-09-09] MEDS: ATORVASTATIN 40 MG TAB PO SCH (09:00)
--- NOTE | 2016-09-09 10:28 | HHI.PR ---
Subjective Remarks in no acute distress. but feels weak. no chest pain. Objective Vitals Vital Signs Date Time Temp Pulse Resp B/P Pulse Ox O2 Delivery O2 Flow Rate FiO2 09/09/16 08:00 96.0 110 24 118/72 94 09/09/16 04:02 96 09/09/16 04:00 97.6 95 18 112/61 91 09/08/16 22:57 86 09/08/16 21:58 96.9 84 18 101/58 97 09/08/16 21:00 78 18 104/67 96 Room Air 09/08/16 18:08 82 17 102/66 97 Room Air 09/08/16 16:45 83 18 106/64 94 Room Air 09/08/16 14:32 92 Room Air 09/08/16 14:18 85 16 96/56 95 Room Air 09/08/16 14:09 17 I/O 09/08/16 09/08/16 09/08/16 09/09/16 09/09/16 09/09/16 07:00 15:00 23:00 07:00 15:00 23:00 Intake Total 240 ml Output Total 300 ml Balance -60 ml Intake Oral 240 ml Output Urine Total 300 ml # Voids 2 Result Diagram: 09/09/16 0500 09/09/16 0500 Imaging Last Impressions Head CT 09/08/161423 Signed Impressions: Service Date/Time: Thursday, September 08, 2016 15:06 - CONCLUSION: Negative for acute process. Vladimir Maldonado MD FACR Chest X-Ray 09/08/161423 Signed Impressions: Service Date/Time: Thursday, September 08, 2016 15:21 - CONCLUSION: Congestive failure with small bilateral pleural effusions. Vladimir Maldonado MD FACR Objective Remarks GENERAL: elderly male, in no apparent distress. CARDIOVASCULAR: Regular rate and regular rhythm without murmurs, gallops, or rubs. RESPIRATORY: Clear to auscultation. Breath sounds equal bilaterally. No wheezes , rales, or rhonchi. GASTROINTESTINAL: Abdomen soft, non-tender, nondistended. Normal, active bowel sounds MUSCULOSKELETAL: Extremities with bilateral pedal edema. NEURO: Alert & Oriented x4 to person, place, time, situation. Moves all ext x4 Medications and IVs Current Medications Sodium Chloride 2 ml 2 ml UNSCH PRN IVF FLUSH AFTER USING IV ACCESS; Start 09/08 at 14:30 Sodium Chloride (NS 1000 ml Inj) 1,000 ml @ 125 mls/hr Q8H ONCE IV Last administered on 09/08/16 14:45; Start 09/08/16 at 14:24; Stop 09/08/16 at 20:53; Status DC Furosemide (Lasix Inj) 40 mg ONCE ONCE IV PUSH Last administered on 09/08/16 15:26; Start 09/08/16 at 14:45; Stop 09/08/16 at 14:46; Status DC Loperamide HCl (Imodium) 4 mg ONCE ONCE PO Last administered on 09/08/16 19:44 ; Start 09/08/16 at 19:15; Stop 09/08/16 at 19:16; Status DC Furosemide (Lasix Inj) 40 mg BID@09,18 IV PUSH ; Start 09/09/16 at 09:00 Aspirin (Ecotrin Ec) 81 mg DAILY PO ; Start 09/09/16 at 09:00 Latanoprost (Xalatan 0.005% Opth Soln) 1 drop HS EACH EYE ; Start 09/09/16 at 21: 00 Timolol Maleate (Timoptic 0.5% Opth Soln) 1 drop BID EACH EYE ; Start 09/09/16 at 09:00 Atorvastatin Calcium (Lipitor) 40 mg DAILY PO ; Start 09/09/16 at 09:00 Heparin Sodium (Porcine) (Heparin Inj) 5,000 units Q12H SQ Last administered on 09/08/16 23:37; Start 09/08/16 at 22:00 Zolpidem Tartrate (Ambien) 5 mg HS PRN PO INSOMNIA Last administered on 00:30; Start 09/09/16 at 00:15 A/P Assessment and Plan Acute CHF exacerbation, new onset, patient denies any history of CHF - likely this is fluid overload from recent blood transfusion as well. Chest x ray reviewed and shows Congestive failure with small bilateral pleural effusions. EKG shows afib, chronic rate controlled. Troponin .03 -Consulted cardiology, pt known to Dr. Ritter -2D echo ordered -Lasix 40 mg IV BID. -Monitor telemetry Diarrhea, loose stools a few times a day for 2 weeks, no recent antibiotic use, likely related to chemotherapy- has improved -C diff in pending. generalized weakness- consult PT acute kidney injury- improved- will monitor Left great toe ulcer, chronic, Dr Cintron does not want to do surgery while he is immunocompromised per patient. -Consulted wound care for dressing recommendations Myelodysplasia, chronic, currently undergoing chemo -Only consult Dr. Tilley if there is a problem -Cont to monitor Chandler Quinteros MD Sep 09, 2016 10:28
[2016-09-09] MEDS: ASPIRIN EC 81 MG TABEC PO SCH (10:39)
[2016-09-09] MEDS: HEPARIN SODIUM - SQ 10,000 UNITS/ML VIAL SQ SCH ×2 (10:39→21:31)
[2016-09-09] MEDS: FUROSEMIDE 40 MG/4 ML VIAL IV PUSH SCH ×2 (10:39→18:00)
--- NOTE | 2016-09-09 11:21 | MB ---
cc: PEDRITO HICKMAN M.D. DATE OF CONSULTATION 09/09/2016 REASON FOR CONSULTATION Edgardo is a very pleasant 68-year-old gentleman with myelodysplastic syndrome on chemotherapy. Also has a history of coronary artery disease status post CABG, carotid artery disease status post carotid endarterectomy, peripheral vascular disease, diabetes, hypertension, tobacco use who presents with a chief complaint of near syncope, lower extremity edema, weakness and fatigue. He received two units of packed red cells a week ago. Currently he feels better. He has been started on diuretics in the hospital. Otherwise denies any GI/ bleeding, PND, orthopnea, chest pains or shortness of breath. PAST HISTORY Per his history of present illness. He also has a history of: 1. A fib 2. Triple A repair 3. Prostate seeds 4. Thoracentesis MEDICATIONS Prior to admission: 5. Crestor 6. Aspirin 81 mg daily 7. Oxygen 8. Timolol ALLERGIES None SOCIAL HISTORY He quit drinking alcohol eight months ago. He quit smoking in June. MEDICATIONS His medications in the hospital: 1. Aspirin 81 mg daily 2. Lasix 40 IV b.i.d. 3. Timolol one drop b.i.d. 4. Atorvastatin 40 daily 5. Heparin 5000 subcu q. 12 PHYSICAL EXAMINATION VITAL SIGNS: Blood pressure 118/72, pulse ranging between 78 and 110, temperature 96.0, respiratory rate ranging 18 and 24. GENERAL: He is alert and three in no distress. NECK: Supple. No JVD or bruit. CARDIOVASCULAR: S1 and S2. No murmurs, rubs or gallops. LUNGS: Notable for decreased air movement at the bases. ABDOMEN: Soft, nontender, and nondistended with positive bowel sounds. EXTREMITIES: 1 to 2+ lower extremity edema. He had a head CT of the brain which showed it was negative for acute process. Chest x-ray, congestive failure with small bilateral pleural effusions. EKG indeterminate rhythm, questionable pacer spikes, right bundle-branch block, late R-wave transition, nonspecific ST-T wave changes. LABS White count is 2.2, hemoglobin 8.4, hematocrit 25.9, platelet count 68. Sodium 144, potassium 3.6, chloride 113, bicarb 26.1, BUN 35, creatinine 1.32. BNP is 905, INR is 1.2. Troponin is 0.03 and 0.02. DIAGNOSIS 1. Decompensated congestive heart failure 2. Pancytopenia 3. Myelodysplastic syndrome 4. Paroxysmal A. fib 5. Coronary artery disease 6. Peripheral vascular disease 7. COPD 8. Diabetes mellitus 9. Chronic renal insufficiency. DISCUSSION At this point in time, would transfuse the patient try to maintain his hemoglobin greater than 10. He does not have any overt symptoms of angina. I suspect that his decompensation is related to anemia. We will give him a trial of one unit of transfusion over four hours and continue diuresis. Recommend follow up daily BNP and BMP. Due to pancytopenia, he is not a candidate for long-term anticoagulation with Coumadin or novel oral anticoagulant agent. Would defer use of aspirin or heparin to his punch operator/oncologist at this point. I will be out of town until 07:[address] Meyers will be covering me in the interim. I have given the orders to the nurse to transfuse the patient one unit and blood over four hours. MD MINDY De Jesus/ROSEANN /10:50 AM /11:08 AM
--- NOTE | 2016-09-09 12:29 | PD.WCN.NOT ---
Wound Consult Description: Consult for WOUND MANAGEMENT of left great toe Communicated with: Dr Neli Choi,RN Recommendation: Cleanse left great toe wound with NORMAL SALINE ONLY Apply Santyl daily to wound bed and cover with dry cover Additional Information: Patient seen on for chronic medial great toe wound. Bandaid removed from left toe to reveal a necrotic oval wound measuring 1cm x 0.7cm x 100% yellow loosely adherent slough. Wound was cleansed with NS and gauze. There is no evidence of drainage or odor noted at this time. 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 A new bandaid was placed over wound bed to cover. Patients states that Dr Cintron wants to continue with Collagenase daily to wound bed as patient is not a surgical candidate for debridement. This is recommended by insurance underwriter sales as well considering patients PAD. Radha Aparicio [facility] Sep 09, 2016 12:29
--- NOTE | 2016-09-09 15:04 | EKG ---
Date Performed: 09/08/2016 Time Performed: 10:51:40 PTAGE: 76 years EKG: ATRIAL FIBRILLATION MARKED RIGHT AXIS DEVIATION RIGHT BUNDLE BRANCH BLOCK POSSIBLE ANTEROSE PTAL MYOCARDIAL INFARCTION MODERATE T-WAVE ABNORMALITY, CONSIDER INFERIOR ISCHEMIA ABNORMAL ECG PREVIOUS TRACING : 07/06/2016 12.52 Since previous tracing, no significant change noted DOCTOR: Simin Mata Interpretating Date/Time 09/09/2016 15:03:26
[2016-09-09] MEDS ORDERED: diphenhydrAMINE HCL 50 MG CAP PO SCH (15:15)
[2016-09-09] MEDS ORDERED: ACETAMINOPHEN 325 MG TAB PO SCH (15:15)
[2016-09-09] MEDS: LATANOPROST 0.005% OPHT SOLN 2.5 ML BTL EACH EYE SCH (21:00)
[2016-09-10] VITALS (10 sets, daily range): BP systolic 100–154; BP diastolic 53–83; PULSE 83–120; RESP 18–23; TEMP 95.1–98.2; O2SAT 90–93
[2016-09-10 06:47] LABS: BICARBONATE 28.6 MEQ/L (21.0-32.0); POTASSIUM 4.4 MEQ/L (3.5-5.1)
--- NOTE | 2016-09-10 08:23 | MB ---
cc: NU DANIELS DATE OF CONSULTATION: 09/10/2016 REASON FOR CONSULTATION 1. Congestive heart failure. 2. Myelodysplasia. 3. Coronary artery disease. 4. Peripheral vascular disease. 5. Atrial fibrillation. 6. Generalized global deterioration in health bringing the patient near end-of-life. PATIENT PROFILE The patient is . He has four children, three sons and a daughter. He has born in [place], [place]. 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 He currently does not smoke. In the past he had smoked excessively. There has never been a history of heavy alcohol use. HISTORY OF PRESENT ILLNESS The patient is a 76-year-old male who has a myelodysplasia. He receives transfusions intermittently. He has received 2 cycles of Vidaza without any improvement. He has significant co-morbidities. He has had recurrent pleural effusions. He has congestive heart failure. He has emphysema. He has atrial fibrillation. On the day of admission he was increasingly weak and short of breath. He had an episode of near-syncope and went to the emergency room. On 09/08/2016 hemoglobin was 9.3, white count 2700, platelets 75,000, 92% neutrophils. On 09/09/2016 hemoglobin was 8.4, white count 2200, platelets 68,000, 88% neutrophils, nucleated red cells 100. He remains short of breath at rest. He is so week he cannot stand. He needs two people to help him get off the toilet seat. His has been caring for him at home and this has become impossible as he is not stable on his feet and at times he cannot even go from a sitting to standing position. There has been continued deterioration over the past several months. Three months ago he was ambulatory, most recently he arrived at the office in a wheelchair and I had to examine him in the wheelchair as he required help standing and could not get up on the examining table. Over the past several months there has been a continued deterioration. In addition to the above he has an ulcer involving the toe. He needs vascular reconstruction. He is not a surgical candidate. He has been seen by Dr. Cintron. What is very clear is that there has been progressive rapid global deterioration in his health. PAST SURGICAL HISTORY 1. Multiple thoracenteses for pleural effusions. 2. Tonsillectomy. 3. Endovascular aneurysm repair in 2016 for infrarenal abdominal aortic aneurysm. 4. Coronary artery bypass surgery grafting. 5. Left carotid endarterectomy. 6. Right carotid endarterectomy. 7. Radioactive seed implantation of the prostate in 2002 for prostate cancer. PAST MEDICAL HISTORY 1. Myelodysplasia. 2. Type 2 diabetes. 3. Gout. 4. Hypothyroidism. 5. Renal stones. 6. Peripheral vascular disease. 7. Prostate cancer in remission. MEDICATIONS Current medications: 1. Subcu heparin 5000 q.12h. 2. Aspirin. 3. Lasix 40, b.i.d. 4. Lipitor. ALLERGIES No known allergies. FAMILY HISTORY Noncontributory. REVIEW OF SYSTEMS No change in vision. Hearing is poor. No chest pain. He is short of breath at rest. He has had diarrhea and occasional abdominal discomfort. He has mild difficulty with urination. He has some generalized but mild achiness. His major complaint is diffuse weakness. LABORATORY Laboratory tests 09/09/2016: Hemoglobin 8.4, white count 2200, platelets 68,000. Creatinine 1.56, BUN 43. Troponin 0.02. BNP is 905 on 09/08/2016. IMAGING Chest x-ray consistent with congestive heart failure. PHYSICAL EXAMINATION GENERAL: An acute and chronically ill-appearing male. The exam takes place when he is sitting on the toilet seat. He was too weak to get up and move off the seat. He is able to speak but he is short of breath at rest. VITAL SIGNS: Blood pressure is 150/80, respiratory rate 18, pulse 90 and irregular. He is afebrile. O2 sat 92%. HEENT: Head is normocephalic. Sclera and conjunctiva normal. Oropharynx unremarkable. NECK: No adenopathy. HEART: Irregular rhythm, rate 80-90. LUNGS: Mostly clear with some diminished sounds at the bases. ABDOMEN: Puffy without hepatosplenomegaly. EXTREMITIES: 2+ edema. MUSCULOSKELETAL: No bone pain. NEUROLOGIC: Generalized weakness with muscle wasting. ASSESSMENT The patient is a 76-year-old male. He has myelodysplasia as evidenced by the anemia and the nucleated red cells. He has received a limited amount of Vidaza and is clearly not responding. I do not think he is a candidate for additional Vidaza, although it often takes three to four cycles to determine whether it is working. His major problem is not simply the myelodysplasia. He has had progressive deterioration with vascular disease and heart failure. He appears to have refractory congestive heart failure. At this point he is virtually bedridden. His is taking care of him at home and it is not a safe situation. Continuing transfusions may briefly help but are not going to provide prolonged survival. PLAN I spoke with him at length about his situation and then called his . He does not desire cardiopulmonary resuscitation and in any case it will not succeed in providing any meaningful longevity. I have written for no-code. The second issue is the issue of care. His is no longer able to care for him. She has done a Herculean effort. I believe his time is very limited and that Hospice would be appropriate if they are willing. I feel he would benefit [facility]. I have consulted Hospice. I would transfuse him to keep the hemoglobin greater than 8, but I do not think this is going to have much of an impact on his clinical situation as I have been doing this for many months and the transfusions have brought little and only transient benefit. MD YURY Hutson/MARINA /7:43 AM /7:57 AM ANKITA
[2016-09-10] MEDS: FUROSEMIDE 40 MG/4 ML VIAL IV PUSH SCH ×2 (09:00→18:00)
[2016-09-10] MEDS: ATORVASTATIN 40 MG TAB PO SCH (09:00)
[2016-09-10] MEDS: TIMOLOL MALEATE 0.5% OPHT SOLN 5 ML BTL EACH EYE SCH ×2 (09:00→21:39)
--- NOTE | 2016-09-10 09:00 | HHI.PR ---
Subjective Remarks f/u; CHF still with sob which hasn't improved as much. denies chest pain. no fever. Objective Vitals Vital Signs Date Time Temp Pulse Resp B/P Pulse Ox O2 Delivery O2 Flow Rate FiO2 09/10/16 04:02 97 09/10/16 04:00 97.1 90 18 154/78 92 09/10/16 00:02 96 09/10/16 00:00 97.7 88 18 141/83 92 09/09/16 20:01 86 09/09/16 20:00 97.4 85 17 99/56 92 09/09/16 19:55 92 Nasal Cannula 3.00 09/09/16 18:30 96.9 96 16 89/92 94 09/09/16 18:16 96.2 94 16 90/60 93 09/09/16 18:16 97 09/09/16 12:00 96.1 85 20 104/64 93 09/09/16 10:39 Nasal Cannula 2.00 I/O 09/09/16 09/09/16 09/09/16 09/10/16 09/10/16 09/10/16 07:00 15:00 23:00 07:00 15:00 23:00 Intake Total 600 ml Output Total 200 ml Balance 600 ml -200 ml Intake Oral 600 ml Output Urine Total 200 ml # Voids 3 # Bowel Movements 1 Result Diagram: 09/09/16 0500 09/10/16 0500 Imaging Last Impressions Head CT 09/08/164 Signed Impressions: Service Date/Time: Thursday, September 08, 2016 15:06 - CONCLUSION: Negative for acute process. Vladimir Maldonado MD FACR Chest X-Ray 09/08/16 1424 Signed Impressions: Service Date/Time: Thursday, September 08, 2016 15:21 - CONCLUSION: Congestive failure with small bilateral pleural effusions. Vladimir Maldonado MD FACR Objective Remarks GENERAL: elderly male, in no apparent distress. CARDIOVASCULAR: Regular rate and regular rhythm without murmurs, gallops, or rubs. RESPIRATORY: Clear to auscultation. Breath sounds equal bilaterally. No wheezes , rales, or rhonchi. GASTROINTESTINAL: Abdomen soft, non-tender, nondistended. Normal, active bowel sounds MUSCULOSKELETAL: Extremities with bilateral pedal edema. NEURO: Alert & Oriented x4 to person, place, time, situation. Moves all ext x4 Procedures none Medications and IVs Current Medications Sodium Chloride 2 ml 2 ml UNSCH PRN IVF FLUSH AFTER USING IV ACCESS; Start 09/08 at 14:30 Sodium Chloride (NS 1000 ml Inj) 1,000 ml @ 125 mls/hr Q8H ONCE IV Last administered on 09/08/16 14:45; Start 09/08/16 at 14:24; Stop 09/08/16 at 20:53; Status DC Furosemide (Lasix Inj) 40 mg ONCE ONCE IV PUSH Last administered on 09/08/16 15:26; Start 09/08/16 at 14:45; Stop 09/08/16 at 14:46; Status DC Loperamide HCl (Imodium) 4 mg ONCE ONCE PO Last administered on 09/08/16 19:44 ; Start 09/08/16 at 19:15; Stop 09/08/16 at 19:16; Status DC Furosemide (Lasix Inj) 40 mg BID@09,18 IV PUSH Last administered on 09/09/16 10 :39; Start 09/09/16 at 09:00 Aspirin (Ecotrin Ec) 81 mg DAILY PO Last administered on 09/09/16 10:39; Start 09/09/16 at 09:00 Latanoprost (Xalatan 0.005% Opth Soln) 1 drop HS EACH EYE ; Start 09/09/16 at 21: 00 Timolol Maleate (Timoptic 0.5% Opth Soln) 1 drop BID EACH EYE ; Start 09/09/16 at 09:00 Atorvastatin Calcium (Lipitor) 40 mg DAILY PO ; Start 09/09/16 at 09:00 Heparin Sodium (Porcine) (Heparin Inj) 5,000 units Q12H SQ Last administered on 09/09/16 21:31; Start 09/08/16 at 22:00 Zolpidem Tartrate (Ambien) 5 mg HS PRN PO INSOMNIA Last administered on 21:37; Start 09/09/16 at 00:15 Acetaminophen (Tylenol) 325 mg UNSCH X1 PO Last administered on 09/09/16 16:18 ; Start 09/09/16 at 15:15; Stop 09/09/16 at 23:59; Status DC Diphenhydramine HCl (Benadryl) 50 mg UNSCH X1 PO Last administered on t 16:18; Start 09/09/16 at 15:15; Stop 09/09/16 at 23:59; Status DC A/P Assessment and Plan Acute CHF exacerbation, new onset, patient denies any history of CHF - Chest x ray reviewed and shows Congestive failure with small bilateral pleural effusions. EKG shows afib, chronic rate controlled. Troponin .03 -Consulted cardiology, pt known to Dr. Ritter -2D echo pending. -Lasix 40 mg IV BID. -Monitor telemetry Diarrhea, loose stools a few times a day for 2 weeks, no recent antibiotic use, likely related to chemotherapy- has improved -C diff pending. generalized weakness- consulted PT acute kidney injury- will monitor Left great toe ulcer, chronic, Dr Cintron does not want to do surgery while he is immunocompromised per patient. -Consulted wound care for dressing recommendations Myelodysplasia, chronic, currently undergoing chemo --oncology consult appreciated. - d/w today; the overall prognosis is poor and hospice was consulted. Discharge Planning dc planning for tomorrow- likely to hospice. d/w . Chandler Quinteros MD Sep 10, 2016 09:00
[2016-09-10] MEDS: ASPIRIN EC 81 MG TABEC PO SCH (09:21)
[2016-09-10] MEDS: HEPARIN SODIUM - SQ 10,000 UNITS/ML VIAL SQ SCH ×3 (10:11→21:42)
--- NOTE | 2016-09-10 18:49 | ECHRPT ---
Indication: Shortness of breath CONCLUSIONS The left ventricular systolic function is normal with an estimated ejection fraction in the range of 55-60%. Trace aortic valve regurgitation. Bilaterally large pleural effusions noted. BP: / HR: Rhythm: MEASUREMENTS (Male / Female) Normal Values Technical Quality: 2D ECHO LV Diastolic Diameter PLAX 4.4 cm 4.2 - 5.9 / 3.9 - 5.3 cm LV Systolic Diameter PLAX 3.3 cm IVS Diastolic Thickness 1.1 cm 0.6 - 1.0 / 0.6 - 0.9 cm LVPW Diastolic Thickness 0.8 cm 0.6 - 1.0 / 0.6 - 0.9 cm LV Relative Wall Thickness 0.4 RV Internal Dim ED PLAX 2.4 cm LA Systolic Diameter LX 4.4 cm 3.0 - 4.0 / 2.7 - 3.8 cm DOPPLER AV Peak Velocity 364.0 cm/s AV Peak Gradient 53.0 mmHg AV Mean Gradient 18.0 mmHg AV Velocity Time Integral 53.8 cm LVOT Peak Velocity 111.0 cm/s LVOT Peak Gradient 4.9 mmHg LVOT Velocity Time Integral 21.9 cm Mitral E Point Velocity 88.4 cm/s Mitral A Point Velocity 34.6 cm/s Mitral E to A Ratio 2.6 TR Peak Velocity 193.0 cm/s TR Peak Gradient 14.9 mmHg FINDINGS LEFT VENTRICLE Normal left ventricular size. Wall thickness is normal. The left ventricular systolic function is normal with an estimated ejection fraction in the range of 55-60%. RIGHT VENTRICLE The right ventriclar size is upper limits of normal. LEFT ATRIUM The left atrial size is mildly dilated. RIGHT ATRIUM The right atrial size is mildly dilated. ATRIAL SEPTUM Normal atrial septal thickness without atrial level shunting by limited color doppler interrogation. AORTA The aortic root and proximal ascending aorta are normal in size on limited imaging. MITRAL VALVE Structurally normal mitral valve. No mitral valve stenosis or regurgitation. AORTIC VALVE Aortic valve sclerosis is present. Trace aortic valve regurgitation. TRICUSPID VALVE Structurally normal tricuspid valve. No tricuspid valve stenosis or regurgitation. PULMONARY VALVE The pulmonary valve is not well visualized. VESSELS The inferior vena cava is normal in size. PERICARDIUM Bilaterally large pleural effusions noted Curry Sumner DO (Electronically Signed) Final Date:10 September 2016 18:48
[2016-09-10] MEDS: ZOLPIDEM TARTRATE 5 MG TAB PO PRN (21:37)
[2016-09-10] MEDS: LATANOPROST 0.005% OPHT SOLN 2.5 ML BTL EACH EYE SCH (21:39)
[2016-09-11] VITALS (7 sets, daily range): BP systolic 101–131; BP diastolic 55–72; PULSE 76–98; RESP 18–20; TEMP 95.1–96.2; O2SAT 91–93
[2016-09-11 01:12] LABS: HEMATOCRIT 28.4 % (39.0-51.0); MEAN CELL VOLUME 94.9 FL (80.0-100.0); MEAN CORPUSCULAR HEMOGLOBIN 30.8 PG (27.0-34.0); MEAN CORPUSCULAR HGB CONC 32.4 % (32.0-36.0); PLATELET COUNT 73 TH/MM3 (150-450); RED BLOOD COUNT 2.99 MIL/MM3 (4.50-5.90); RED CELL DISTRIBUTION WIDTH 16.6 % (11.6-17.2); WHITE BLOOD COUNT 2.4 TH/MM3 (4.0-11.0)
[2016-09-11 01:20] LABS: HEMO FLAGS AUTO DIFF
[2016-09-11 02:16] LABS: BANDS 7 % (0-6); CORRECTED NUCLEATED RBC 48 /100 WBC (0-0); EOSINOPHILS 1 % (0-4); NEUTROPHIL # MANUAL DIFF 1.8 TH/MM3 (1.8-7.7); POLYS (SEG NEUTROPHILS) 68 % (16-70); WBC DIFF SAMPLE 100
[2016-09-11 02:18] LABS: PLATELET ESTIMATE SMEAR LOW (NORMAL); PLATELET MORPHOLOGY ENLARGED (NORMAL); SCAN/DIFF FINAL DIFF MANUAL
[2016-09-11 02:19] LABS: OVALOCYTES 1+ (NORMAL)
[2016-09-11 06:41] LABS: HEMATOCRIT 31.1 % (39.0-51.0); MEAN CELL VOLUME 95.9 FL (80.0-100.0); MEAN CORPUSCULAR HEMOGLOBIN 30.6 PG (27.0-34.0); MEAN CORPUSCULAR HGB CONC 31.8 % (32.0-36.0); PLATELET COUNT 78 TH/MM3 (150-450); RED BLOOD COUNT 3.25 MIL/MM3 (4.50-5.90); WHITE BLOOD COUNT 2.8 TH/MM3 (4.0-11.0)
[2016-09-11 06:55] LABS: HEMO FLAGS AUTO DIFF
--- NOTE | 2016-09-11 07:44 | HHI.PR ---
Subjective Remarks with some sob. denies pain. awaiting discharge to hospice. Objective Vitals Vital Signs Date Time Temp Pulse Resp B/P Pulse Ox O2 Delivery O2 Flow Rate FiO2 09/11/16 04:00 95.1 82 18 131/72 91 09/11/16 00:02 98 09/11/16 00:00 95.6 88 18 111/59 93 09/10/16 20:10 83 09/10/16 20:00 95.1 105 18 104/59 90 09/10/16 16:00 97.2 92 20 100/53 93 09/10/16 12:00 98.2 99 20 100/57 93 09/10/16 11:56 96 09/10/16 08:00 89 09/10/16 08:00 97.0 120 23 115/63 92 I/O 09/10/16 09/10/16 09/10/16 09/11/16 09/11/16 09/11/16 06:59 14:59 22:59 06:59 14:59 22:59 Intake Total 600 ml 240 ml Output Total 200 ml 700 ml 800 ml Balance -200 ml -100 ml -560 ml Intake Oral 600 ml 240 ml Output Urine Total 200 ml 700 ml 800 ml # Voids 2 # Bowel Movements 3 Result Diagram: 09/11/16 0535 09/10/16 0500 Imaging Last Impressions Head CT 09/08/161423 Signed Impressions: Service Date/Time: Thursday, September 08, 2016 15:06 - CONCLUSION: Negative for acute process. Vladimir Maldonado MD FACR Chest X-Ray 09/08/161423 Signed Impressions: Service Date/Time: Thursday, September 08, 2016 15:21 - CONCLUSION: Congestive failure with small bilateral pleural effusions. Vladimir Maldonado MD FACR Objective Remarks GENERAL: elderly male, with some respiratory distress CARDIOVASCULAR: Regular rate and regular rhythm without murmurs, gallops, or rubs. RESPIRATORY: diminished air entry in bases GASTROINTESTINAL: Abdomen soft, non-tender, nondistended. Normal, active bowel sounds MUSCULOSKELETAL: Extremities with bilateral pedal edema. NEURO: Alert & Oriented x4 to person, place, time, situation. Moves all ext x4 Procedures none Medications and IVs Current Medications Sodium Chloride 2 ml 2 ml UNSCH PRN IVF FLUSH AFTER USING IV ACCESS; Start 09/08 at 14:30 Sodium Chloride (NS 1000 ml Inj) 1,000 ml @ 125 mls/hr Q8H ONCE IV Last administered on 09/08/16 14:45; Start 09/08/16 at 14:24; Stop 09/08/16 at 20:53; Status DC Furosemide (Lasix Inj) 40 mg ONCE ONCE IV PUSH Last administered on 09/08/16 15:26; Start 09/08/16 at 14:45; Stop 09/08/16 at 14:46; Status DC Loperamide HCl (Imodium) 4 mg ONCE ONCE PO Last administered on 09/08/16 19:44 ; Start 09/08/16 at 19:15; Stop 09/08/16 at 19:16; Status DC Furosemide (Lasix Inj) 40 mg BID@09,18 IV PUSH Last administered on 09/09/16 10 :39; Start 09/09/16 at 09:00 Aspirin (Ecotrin Ec) 81 mg DAILY PO Last administered on 09/10/16 09:21; Start 09/09/16 at 09:00 Latanoprost (Xalatan 0.005% Opth Soln) 1 drop HS EACH EYE Last administered on 09/10/16 21:39; Start 09/09/16 at 21:00 Timolol Maleate (Timoptic 0.5% Opth Soln) 1 drop BID EACH EYE Last administered on 09/10/16 21:39; Start 09/09/16 at 09:00 Atorvastatin Calcium (Lipitor) 40 mg DAILY PO ; Start 09/09/16 at 09:00 Heparin Sodium (Porcine) (Heparin Inj) 5,000 units Q12H SQ Last administered on 09/10/16 10:11; Start 09/08/16 at 22:00 Zolpidem Tartrate (Ambien) 5 mg HS PRN PO INSOMNIA Last administered on 21:37; Start 09/09/16 at 00:15 Acetaminophen (Tylenol) 325 mg UNSCH X1 PO Last administered on 09/09/16 16:18 ; Start 09/09/16 at 15:15; Stop 09/09/16 at 23:59; Status DC Diphenhydramine HCl (Benadryl) 50 mg UNSCH X1 PO Last administered on t 16:18; Start 09/09/16 at 15:15; Stop 09/09/16 at 23:59; Status DC A/P Assessment and Plan Acute CHF exacerbation- diastolic-, new onset, patient denies any history of CHF - Chest x ray reviewed and shows Congestive failure with small bilateral pleural effusions. EKG shows afib, chronic rate controlled. Troponin .03 -Consulted cardiology, pt known to Dr. Ritter -2D echo with EF 55% and large bilateral pleural effusions. - will consult IR for thoracentesis -continue lasix -Monitor telemetry Diarrhea, loose stools a few times a day for 2 weeks, no recent antibiotic use, likely related to chemotherapy- has improved generalized weakness- consulted PT acute kidney injury- will monitor Left great toe ulcer, chronic, Dr Cintron does not want to do surgery while he is immunocompromised per patient. -Consulted wound care for dressing recommendations Myelodysplasia, chronic, currently undergoing chemo --oncology consult appreciated. - d/w today; the overall prognosis is poor and hospice was consulted. Discharge Planning dc to hospice after thoracentesis. see med list. d/w the patient. d/w the . previously d/w the hospice entrance attendant and . time spent 35 min. Chandler Quinteros MD Sep 11, 2016 07:44
[2016-09-11] MEDS ORDERED: FURO1TAB62 PO (07:45)
--- NOTE | 2016-09-11 07:45 | HHI.DCPOC ---
Discharge Care Plan Diagnosis: (1) CHF exacerbation Your Health Problems Are: Shortness of Breath Goals to Promote Your Health * To prevent worsening of your condition and complications * To maintain your health at the optimal level Directions to Meet Your Goals Take your medications as prescribed Follow your dietary instruction Follow activity as directed Keep your appointments as scheduled Take your immunizations and boosters as scheduled If your symptoms worsen call your PCP, if no PCP go to Urgent Care Center or Emergency Room Smoking is Dangerous to Your Health. Avoid second hand smoke Call the 24-hour hour crisis hotline for domestic abuse at Chandler Quinteros MD Sep 11, 2016 07:45
--- NOTE | 2016-09-11 07:46 | HHI.DS ---
Discharge Summary Admission Date Sep 08, 2016 at 16:44 Discharge Date: Sep 11, 2016 Admitting Diagnosis CHF (1) CHF exacerbation ICD Code: I50.9 Diagnosis: Principal (2) Pancytopenia ICD Code: D61.818 Diagnosis: Principal Procedures thoracentesis. Brief History - From Admission Written by HALLEY Vergara acting as scribe for [Verona] on 09/08/16 at 21: 04. 76 y/o male with a history of myelodysplasia on chemo, last dose was 2 weeks ago , prostate cancer, afib, DM, HTN and CAD presented to the ED with complaints of being unable to walk or stand up by himself, swollen lower extremities, fatigue , for the last few weeks and getting worse. He states today when he was going to his PCP he felt dizzy and felt like he was going to pass out, and didn't think he could make so he came to the hospital. He also complains of diarrhea a few times a day, nausea. Denies any fever, chills, chest pain, increased sob, dysuria, bloody stools or vomiting. He denies any CHF or recent antibiotic use. He did receive 2 units of PRBCs [address] Ritter is his manager epic Julianne Sutherland is his PCP CBC/BMP: 09/11/16 0535 09/10/16 0500 Significant Findings Laboratory Tests Test 09/08/16 09/08/16 09/09/16 09/10/16 10:55 14:40 05:00 05:00 White Blood Count 2.7 TH/MM3 2.2 TH/MM3 (4.0-11.0) (4.0-11.0) Red Blood Count 2.93 MIL/MM3 2.68 MIL/MM3 (4.50-5.90) (4.50-5.90) Hemoglobin 9.3 GM/DL 8.4 GM/DL (13.0-17.0) (13.0-17.0) Hematocrit 28.2 % 25.9 % (39.0-51.0) (39.0-51.0) Platelet Count 75 TH/MM3 68 TH/MM3 (150-450) (150-450) Neutrophils % (Manual) 92 % (16-70) 88 % (16-70) Lymphocytes % 5 % (9-44) Nucleated Red Blood Cells 82 /100 WBC 104 /100 WBC (0-0) (0-0) Toxic Granulation 1+ (NORMAL) 1+ (NORMAL) Platelet Estimate LOW (NORMAL) LOW (NORMAL) Ovalocytes 1+ (NORMAL) Prothrombin Time 13.4 SEC (9.8-11.6) Chloride Level 108 MEQ/L 113 MEQ/L (98-107) (98-107) Blood Urea Nitrogen 38 MG/DL (7-18) 35 MG/DL (7-18) 41 MG/DL (7-18) Creatinine 1.65 MG/DL 1.32 MG/DL 1.56 MG/DL (0.60-1.30) (0.60-1.30) (0.60-1.30) Estimat Glomerular Filtration 41 ML/MIN (>89) 52 ML/MIN (>89) 43 ML/MIN (>89) Rate Random Glucose 121 MG/DL 131 MG/DL (74-106) (74-106) B-Type Natriuretic Peptide 905 PG/ML (0-100) Total Creatine Kinase 37 U/L (39-308) Platelet Morphology Comment ENLARGED (NORMAL) Calcium Level 6.6 MG/DL 7.6 MG/DL (8.5-10.1) (8.5-10.1) Protein Corrected Calcium 7.8 MG/DL (8.5-10.1) Total Protein 4.8 GM/DL (6.4-8.2) Test 09/10/16 09/11/16 18:00 05:35 White Blood Count 2.4 TH/MM3 2.8 TH/MM3 (4.0-11.0) (4.0-11.0) Red Blood Count 2.99 MIL/MM3 3.25 MIL/MM3 (4.50-5.90) (4.50-5.90) Hemoglobin 9.2 GM/DL 9.9 GM/DL (13.0-17.0) (13.0-17.0) Hematocrit 28.4 % 31.1 % (39.0-51.0) (39.0-51.0) Platelet Count 73 TH/MM3 78 TH/MM3 (150-450) (150-450) Band Neutrophils % 7 % (0-6) Monocytes % 10 % (0-8) Nucleated Red Blood Cells 48 /100 WBC (0-0) Platelet Estimate LOW (NORMAL) Platelet Morphology Comment ENLARGED (NORMAL) Ovalocytes 1+ (NORMAL) Mean Corpuscular Hemoglobin 31.8 % Concent (32.0-36.0) Imaging Last Impressions Head CT 09/08/161423 Signed Impressions: Service Date/Time: Tuesday, September 08, 2016 15:06 - CONCLUSION: Negative for acute process. Vladimir Maldonado MD FACR Chest X-Ray 09/08/161423 Signed Impressions: Service Date/Time: Thursday, September 08, 2016 15:21 - CONCLUSION: Congestive failure with small bilateral pleural effusions. Vladimir Maldonado MD FACR PE at Discharge GENERAL: elderly male, with some respiratory distress CARDIOVASCULAR: Regular rate and regular rhythm without murmurs, gallops, or rubs. RESPIRATORY: diminished air entry in bases GASTROINTESTINAL: Abdomen soft, non-tender, nondistended. Normal, active bowel sounds MUSCULOSKELETAL: Extremities with bilateral pedal edema. NEURO: Alert & Oriented x4 to person, place, time, situation. Moves all ext x4 Hospital Course Acute CHF exacerbation- diastolic-, new onset, patient denies any history of CHF - Chest x ray reviewed and shows Congestive failure with small bilateral pleural effusions. EKG shows afib, chronic rate controlled. Troponin .03 -Consulted cardiology, pt known to Dr. Ritter -2D echo with EF 55% and large bilateral pleural effusions. -continue lasix -Monitor telemetry Diarrhea, loose stools a few times a day for 2 weeks, no recent antibiotic use, likely related to chemotherapy- has improved generalized weakness- consulted PT acute kidney injury- will monitor Left great toe ulcer, chronic, Dr Cintron does not want to do surgery while he is immunocompromised per patient. -Consulted wound care for dressing recommendations Myelodysplasia, chronic, currently undergoing chemo --oncology consult appreciated. - d/w today; the overall prognosis is poor and hospice was consulted. Pt Condition on Discharge: Deteriorating Discharge Disposition: Hospice/Med Facility Discharge Time: > 30 minutes Discharge Instructions DIET: Follow Instructions for: Heart Healthy Diet Activities you can perform: Regular-No Restrictions Follow up Referrals: PCP Follow-up New Medications: Furosemide (Lasix) 20 Mg Tab 20 MG PO BID diuretic #60 Ref 0 TAB Continued Medications: Aspirin DR (Aspirin Adult Low Strength) 81 Mg Tabdr 81 MG PO DAILY TAB Latanoprost Opth Drops (Latanoprost Opth Drops) 0.005% Drops 1 DROP EACH EYE HS Refrigerate until opened. Glaucoma #2.5 Ref 0 ML Rosuvastatin (Crestor) 20 Mg Tab 20 MG PO DAILY Cholesterol Management #30 Ref 0 TAB Timolol Opth Drops (Timolol Opth Drops) 0.5 % Soln 1 DROP EACH EYE BID Glaucoma #1 Ref 0 BOTTLE Zolpidem (Zolpidem) 5 Mg Tab 5 MG PO HS PRN INSOMNIA Ref 0 TAB Chandler Quinteros MD Sep 11, 2016 07:46
[2016-09-11 08:57] LABS: BANDS 9 % (0-6); BASOPHILS 1 % (0-2); CORRECTED NUCLEATED RBC 36 /100 WBC (0-0); NEUTROPHIL # MANUAL DIFF 2.5 TH/MM3 (1.8-7.7); PLATELET ESTIMATE SMEAR LOW (NORMAL); PLATELET MORPHOLOGY NORMAL (NORMAL); POLYS (SEG NEUTROPHILS) 80 % (16-70); SCAN/DIFF FINAL DIFF MANUAL; WBC DIFF SAMPLE 100
[2016-09-11] MEDS: ASPIRIN EC 81 MG TABEC PO SCH (09:00)
[2016-09-11] MEDS: HEPARIN SODIUM - SQ 10,000 UNITS/ML VIAL SQ SCH (10:00)
--- NOTE | 2016-09-11 10:00 | PD.ONC.PN ---
Subjective Subjective Remarks Afebrile overnight. Patient resting in bed. Was supposed to go to hospice care center. wants to wait until after thoracentesis if it will improve his breathing. Objective Data Date Time Temp Pulse Resp B/P Pulse Ox O2 Delivery O2 Flow Rate FiO2 09/11/16 08:00 96.1 91 20 101/68 93 09/11/16 04:17 89 09/11/16 04:00 95.1 82 18 131/72 91 09/11/16 00:02 98 09/11/16 00:00 95.6 88 18 111/59 93 09/10/16 20:10 83 09/10/16 20:00 95.1 105 18 104/59 90 09/10/16 16:00 97.2 92 20 100/53 93 09/10/16 12:00 98.2 99 20 100/57 93 09/10/16 11:56 96 09/11/16 09/11/16 09/11/16 07:00 15:00 23:00 Intake Total 240 ml Output Total 800 ml Balance -560 ml Result Diagram: 09/11/16 0535 09/10/16 0500 Laboratory Results Laboratory Tests Test 09/10/16 09/11/16 18:00 05:35 White Blood Count 2.4 TH/MM3 2.8 TH/MM3 Red Blood Count 2.99 MIL/MM3 3.25 MIL/MM3 Hemoglobin 9.2 GM/DL 9.9 GM/DL Hematocrit 28.4 % 31.1 % Mean Corpuscular Volume 94.9 FL 95.9 FL Mean Corpuscular Hemoglobin 30.8 PG 30.6 PG Mean Corpuscular Hemoglobin 32.4 % 31.8 % Concent Red Cell Distribution Width 16.6 % 17.0 % Platelet Count 73 TH/MM3 78 TH/MM3 Mean Platelet Volume 9.2 FL 9.0 FL Neutrophils (%) (Auto) % % Lymphocytes (%) (Auto) % % Monocytes (%) (Auto) % % Eosinophils (%) (Auto) % % Basophils (%) (Auto) % % Neutrophils # (Auto) TH/MM3 TH/MM3 Lymphocytes # (Auto) TH/MM3 TH/MM3 Monocytes # (Auto) TH/MM3 TH/MM3 Eosinophils # (Auto) TH/MM3 TH/MM3 Basophils # (Auto) TH/MM3 TH/MM3 CBC Comment AUTO DIFF AUTO DIFF Differential Total Cells 100 100 Counted Neutrophils % (Manual) 68 % 80 % Band Neutrophils % 7 % 9 % Lymphocytes % 14 % 4 % Monocytes % 10 % 6 % Eosinophils % 1 % Neutrophils # (Manual) 1.8 TH/MM3 2.5 TH/MM3 Nucleated Red Blood Cells 48 /100 WBC 36 /100 WBC Differential Comment FINAL DIFF FINAL DIFF MANUAL MANUAL Atypical Lymphocytes % Platelet Estimate LOW LOW Platelet Morphology Comment ENLARGED NORMAL Ovalocytes 1+ Basophils % 1 % Administered Medications Medications (Trade) Dose Ordered Sig/Sadie Route PRN Reason Start Time Stop Time Status Last Admin Dose Admin Furosemide (Lasix Inj) 40 mg BID@,18 IV PUSH 09/09/16 09:00 09/09/16 10:39 Aspirin (Ecotrin Ec) 81 mg DAILY PO 09/09/16 09:00 09/10/16 09:21 Latanoprost (Xalatan 0.005% Opth Soln) 1 drop HS EACH EYE 09/09/16 21:00 09/10/16 21:39 Timolol Maleate (Timoptic 0.5% Opth Soln) 1 drop BID EACH EYE 09/09/16 09:00 09/10/16 21:39 Heparin Sodium (Porcine) (Heparin Inj) 5,000 units Q12H SQ 09/08/16 22:00 09/10/16 10:11 Zolpidem Tartrate (Ambien) 5 mg HS PRN PO INSOMNIA 09/09/16 00:15 09/10/16 21:37 Objective Remarks GENERAL: Elderly male upright in bed on supplemental O2 via NC SKIN: Warm and dry. HEAD: Normocephalic. EYES: No injection or drainage. NECK: Supple, trachea midline. CARDIOVASCULAR: Regular rate and rhythm RESPIRATORY: diminished at bases, anterior velasquez with occasional rhonchi GASTROINTESTINAL: Abdomen soft, non-tender, nondistended. EXTREMITIES: No cyanosis NEUROLOGICAL: awake and alert, normal speech Assessment/Plan Problem List: (1) Myelodysplasia (myelodysplastic syndrome) Status: Acute Plan: --transfuse to keep hgb>8 --receives transfusions intermittently. --s/p 2 cycles of Vidaza without any improvement. --do not think he is a candidate for additional Vidaza, although it often takes three to four cycles to determine whether it is working. --His major problem is not simply the myelodysplasia. He has had progressive deterioration with vascular disease and heart failure. He appears to have refractory congestive heart failure. At this point he is virtually bedridden. His is taking care of him at home and it is not a safe situation. Continuing transfusions may briefly help but are not going to provide prolonged survival. (2) Pleural effusion on left Status: Acute Plan: --h/o recurrent pleural effusions. --has congestive heart failure. (3) Shortness of breath Status: Acute Plan: d/t emphysema + pleural effusions, CHF Assessment 76y/o male with myelodysplasia admitted with generalized global deterioration in health bringing the patient near end-of-life. h/o Congestive heart failure. Myelodysplasia. Coronary artery disease. Prostate cancer in remission Peripheral vascular disease. Atrial fibrillation. Multiple thoracenteses for pleural effusions. Endovascular aneurysm repair in 2015 for infrarenal abdominal aortic aneurysm. Coronary artery bypass surgery grafting. Left carotid endarterectomy. Right carotid endarterectomy. Radioactive seed implantation of the prostate in 2002 for prostate cancer. Plan 1. IR consulted for thoracentesis 2. no transfusion needed today 3. to hospice after thoracentesis Attending Statement The exam, history, and the medical decision-making described in the above note were completed with the assistance of the mid-level provider. I reviewed and agree with the findings presented. I attest that I had a [id number] encounter with the patient on the same day, and personally performed and documented my assessment and findings in the medical record. + MARTINEZ. Await palliative thoracentesis. Blood counts stable, no need for transfusion. Await transfer to care center after the thoracentesis. Lauryn Bruce Sep 11, 2016 10:00 Mike Crain MD Sep 11, 2016 11:05
[2016-09-11] MEDS: ATORVASTATIN 40 MG TAB PO SCH (10:59)
[2016-09-11] MEDS: FUROSEMIDE 40 MG/4 ML VIAL IV PUSH SCH (10:59)
[2016-09-11] MEDS: TIMOLOL MALEATE 0.5% OPHT SOLN 5 ML BTL EACH EYE SCH (10:59)
[2016-09-11] MEDS ORDERED: LORazepam 0.5 MG TAB PO PRN (13:30)
[2016-09-11] MEDS ORDERED: LIDOCAINE HCL 1% PF 30 ML VIAL ONE (14:22)
--- NOTE | 2016-09-11 14:51 | RADRPT ---
EXAM DATE/TIME: 09/11/2016 14:24 [facility] COMPARISON: CHEST SINGLE AP, September 08, 2016, 15:21. INDICATIONS : Thoracentesis done on right lung. MEDICAL HISTORY : Hypertension. Carcinoma, prostate. Diabetes SURGICAL HISTORY : CABG Abdominal aortic aneurysm repair. ENCOUNTER: Subsequent ACUITY: 2 days PAIN SCORE: 7/10 LOCATION: Right chest FINDINGS: Decreased right pleural effusion in the interim, now small. I don't see a pneumothorax. A moderate to large left pleural effusion persists and probably slightly larger in the interim. Heart size stable, upper limits of normal to mildly enlarged. Patient has had previous median sternot herrera. There is a right internal jugular [id number] catheter with tip in the superior vena cava. CONCLUSION: 1. Decreased size of the right pleural effusion after thoracentesis, now small. No pneumothorax demon strated. 2. Moderate to large left pleural effusion slightly larger in the interim even accounting for differe nces in technique. Horacio Nichole MD on September 11, 2016 at 14:48 Board Certified Radiologist. This report was verified electronically.
--- NOTE | 2016-09-13 08:32 | RADRPT ---
EXAM DATE/TIME: 09/11/2016 13:49 [facility] COMPARISON: No previous studies available for comparison. EXTERNAL COMPARISON: [facility], CT THORAX, W CONTRAST, Apr 28 2016. INDICATIONS : Shortness of breath. Right pleural effusion. MEDICAL HISTORY : Hypothyroidism. Hypercholesterolemia. Renal calculi. Carcinoma, prostate. Miloblastoma. Arthritis. Di abetes. Glaucoma. Afib. HTN. SURGICAL HISTORY : CABG Carotid endarterectomy. Abdominal aortic aneurysm repair. Chemotherapy. Radiation therapy. Blood transfusions. ENCOUNTER: Initial ACUITY: 4 - 6 months PAIN SCORE: 0/10 LOCATION: Right chest FLUID: Total volume of 1,700 cc of clear, yellow fluid was removed. Fluid was discarded. Thoracentesis was therapeutic only. TECHNIQUE: 1. Ultrasound guidance for thoracentesis. 2. Thoracentesis. The risks, benefits, and alternatives to ultrasound guided thoracentesis were explained to the patien t in lay simple terms, including the risk of bleeding and infection. Written and verbal informed con sent was obtained. Appropriate area for thoracentesis was marked under ultrasound guidance with the patient in the uprig ht position. Overlying skin was prepped and draped in the usual sterile fashion and with local anest hetic, a dermatotomy was made with an 11 blade scalpel. A 6 [place] thoracentesis catheter was placed in the pleural space and fluid was removed. Catheter was then removed and a sterile dressing applie d. There were no immediate complications. The patient tolerated the procedure well and the left the ultrasound suite in stable condition. Chest radiograph is to be obtained. CONCLUSION: Uncomplicated ultrasound guided thoracentesis. Marco Brothers MD on September 13, 2016 at 8:30 Board Certified Radiologist. This report was verified electronically.
== END 2016-09-11 17:59 | disposition hospice, inpatient (51) | DRG 291 ==
LOC: NEPE 10:21 → NEDA 16:44 → HOCA 22:02
PROVIDERS: ADMIT Internal Medicine; ATTEND Internal Medicine
PROC: 0W993ZZ Drainage of Right Pleural Cavity, Percutaneous Approach (ICD-10-PCS; principal; 2016-09-08)
PROC: 30253N1 (ICD-10-PCS; 2016-09-08)
DX: I13.0 Hypertensive heart and chronic kidney disease with heart failure and stage 1 through stage 4 chronic kidney disease, or unspecified chronic kidney disease (principal); I50.33 Acute on chronic diastolic (congestive) heart failure; N17.9 Acute kidney failure, unspecified; D61.818 Other pancytopenia; E11.22 Type 2 diabetes mellitus with diabetic chronic kidney disease; J44.9 Chronic obstructive pulmonary disease, unspecified; L97.529 Non-pressure chronic ulcer of other part of left foot with unspecified severity; D46.9 Myelodysplastic syndrome, unspecified; N18.9 Chronic kidney disease, unspecified; E03.9 Hypothyroidism, unspecified; I73.9 Peripheral vascular disease, unspecified; E78.00 Pure hypercholesterolemia, unspecified; I25.10 Atherosclerotic heart disease of native coronary artery without angina pectoris; I48.0 Paroxysmal atrial fibrillation; M10.9 Gout, unspecified; H40.9 Unspecified glaucoma; H91.90 Unspecified hearing loss, unspecified ear; Z85.46 Personal history of malignant neoplasm of prostate; Z86.79 Personal history of other diseases of the circulatory system; Z51.5 Encounter for palliative care; Z87.891 Personal history of nicotine dependence; Z92.21 Personal history of antineoplastic chemotherapy; Z92.3 Personal history of irradiation; Z95.1 Presence of aortocoronary bypass graft; Z87.442 Personal history of urinary calculi
CPT/HCPCS: 32555; 36430; 36591; 70450; 71010; 80048; 82550; 83880; 84155; 84484; 85007; 85027; 85610; 86850; 86900; 86901; 86920; 93005; 93306; 96361; 96374; C1729; J1642; J1644; J1940; J7030; P9016; Q0163